=== PATIENT | male | born 1945 | race Caucasian/White ===

== ENCOUNTER 2016-08-27 09:26 | Inpatient (IN) | payer OTHER ==
--- NOTE | 2016-08-27 09:40 | CPEKG ---
Heart Rate: 87 RR Interval: 690 P-R Interval: 168 QRSD Interval: 98 QT Interval: 333 QTC Interval: 401 P [place]: 32 QRS [place]: 26 T Wave [place]: 92 EKG Severity - ABNORMAL ECG - EKG Impression: SINUS RHYTHM EKG Impression: NONSPECIFIC T ABNORMALITIES, ANT-LAT LEADS Electronically Signed By: Nish Spear 27-Aug-2016 09:43:16
--- NOTE | 2016-08-27 09:49 | EDPHY ---
General - History Smoking Status: Never smoked Narrative: CHIEF COMPLAINT: Chest Pain HISTORY OF PRESENT ILLNESS: Chest pain and shortness of breath over the past 3- 4 days. Patient says this started while at rest. It is sternal retrosternal chest pain. It has been constant since onset. Waxes and wanes. Varies from a 3/10 to 8 or 9/10. Difficult for him to describe true exacerbating factors. Sometimes it is stressed. Sometimes exertion. No radiating pain. No nausea, vomiting or diaphoresis. Shortness of breath is very mild for him. It is worse with exertion. He does not have any recent travel or surgery. No history of venous thrombolic event. No lower extremity erythema edema or pain. No exogenous testosterone use. He does have hypertension that is untreated by prescription medications, he only takes supplements. No other associated complaints or modifying factors. REVIEW OF SYSTEMS: Ten systems reviewed and are negative unless otherwise noted in the HPI EXAMINATION: General Appearance: Alert, no distress Head: normocephalic, atraumatic Eyes: Pupils equal and round, no conjunctival pallor or injection ENT, Mouth: Mucous membranes moist. Uvula midline. No erythema or edema Neck: Normal inspection, supple, non-tender Respiratory: Lungs are clear to auscultation. No wheezing, rhonchi or crackles. Cardiovascular: Regular rate and rhythm. No murmur. Pulses intact distally. Gastrointestinal: Abdomen is soft and nontender. No tympany rigidity Back: non-tender, no bony abnormalities Neurological: A&O, nonfocal, normal gait. Strength is symmetric in all limbs. Skin: Warm and dry, no rash Extremities: Nontender, no pedal edema Psychiatric: Mood and affect normal DIFFERENTIAL DIAGNOSES: Including but not limited to in no particular order: Acute Chest Pain, ACS, Stable Angina, Pneumonia, PE, duodenitis, gastritis, esophagitis, GERD MDM: 9:50 a.m. Chest pain or shortness of breath of the past 3 days. Vital signs are stable but he does have hypertension untreated. He also has diffusely flattened T- waves in the anterolateral leads. Patient is hemodynamically stable but plan for admission for cardiac workup. 10:25 a.m. Troponin negative. Chest x-ray clear with outflow sclerotic and tortuous aorta. Vital signs remained stable. He does have changes in EKG that warranted admission. I have paged the hospitalist for admission and the patient is amenable to being admitted. He is admitted in stable condition EKG: Interpreted by Dr. Spear SUPERVISION: This patient was independently evaluated without direct examination by the attending physician. Case was discussed with attending physician. (Wilber Guy) - Diagnostics EKG Interpretation: 12-lead EKG interpreted by me; official reading is in trace master. My interpretation is sinus rhythm, rate 87, new anterior T-wave flattening compared to previous EKG dated 09/06/2014. (Nish Spear) Discussion: PHYSICIAN DOCUMENTATION: The patient was evaluated and managed by the Physician Annealer Helper and myself. I have reviewed the chart and agree with the findings and plan of care as documented. In addition, I examined the patient myself at 1025. History confirmed as chest pain and shortness of breath for 3 or 4 days. Physical findings as follows: Regular rate and rhythm without murmur. EKG is reviewed by myself and show new anterior T-wave flattening since previous EKG dated 09/06/2014. Plan for admission for cardiac risk stratification with abnormal EKG. I am the secondary supervising physician. (Nish Spear) - Objective Vital Signs: Initial Vital Signs Temperature (C) 36.6 C 08/27/16 09:28 Heart Rate 98 08/27/16 09:28 Respiratory Rate 18 08/27/16 09:28 Blood Pressure 166/100 H 08/27/16 09:28 O2 Sat (%) 93 08/27/16 09:28 O2 Delivery Mode Room Air Allergies/Adverse Reactions: No Known Allergies Allergy (Verified 08/27/16 09:27) Home Medications: Medication Instructions Recorded NK [No Known Home Meds] 08/27/16 Laboratory Results: Laboratory Results 08/27/16 09:45 08/27/16 09:45 08/27/16 08/27/16 08/27/16 09:45 09:45 09:45 WBC 6.06 10^3/uL 10^3/uL (3.80-9.50) RBC 6.07 10^6/uL 10^6/uL (4.40-6.38) Hgb 17.4 g/dL g/dL (13.7-17.5) Hct 50.3 % % (40.0-51.0) MCV 82.9 fL fL (81.5-99.8) MCH 28.7 pg pg (27.9-34.1) MCHC 34.6 g/dL g/dL (32.4-36.7) RDW 13.6 % % (11.5-15.2) Plt Count 260 10^3/uL 10^3/uL (150-400) MPV 10.5 fL fL (8.7-11.7) Neut % (Auto) 68.8 % % (39.3-74.2) Lymph % (Auto) 20.6 % % (15.0-45.0) [place] % (Auto) 8.9 % % (4.5-13.0) Eos % (Auto) 0.8 % % (0.6-7.6) Baso % (Auto) 0.7 % % (0.3-1.7) Nucleat RBC Rel Count 0.0 % % (0.0-0.2) Absolute Neuts (auto) 4.17 10^3/uL 10^3/uL (1.70-6.50) Absolute Lymphs (auto) 1.25 10^3/uL 10^3/uL (1.00-3.00) Absolute Monos (auto) 0.54 10^3/uL 10^3/uL (0.30-0.80) Absolute Eos (auto) 0.05 10^3/uL 10^3/uL (0.03-0.40) Absolute Basos (auto) 0.04 10^3/uL 10^3/uL (0.02-0.10) Absolute Nucleated RBC 0.00 10^3/uL 10^3/uL (0-0.01) Immature Gran % 0.2 % % (0.0-1.1) Immature Gran # 0.01 10^3/uL 10^3/uL (0.00-0.10) PT 13.2 SEC SEC (12.0-15.0) INR 1.01 (0.83-1.16) APTT 27.4 SEC SEC (23.0-38.0) Sodium 141 mEq/L mEq/L (134-144) Potassium 3.5 mEq/L mEq/L (3.5-5.2) Chloride 104 mEq/L mEq/L (97-110) Carbon Dioxide 23 mEq/l mEq/l (22-31) Anion Gap 14 mEq/L mEq/L (8-16) BUN 14 mg/dL mg/dL (7-23) Creatinine 1.0 mg/dL mg/dL (0.7-1.3) Estimated GFR > 60 Glucose 146 mg/dL H mg/dL (70-100) Calcium 9.8 mg/dL mg/dL (8.5-10.4) Total Bilirubin 1.7 mg/dL H mg/dL (0.1-1.4) Conjugated Bilirubin 0.3 mg/dL mg/dL (0.0-0.5) Unconjugated Bilirubin 1.4 mg/dL H mg/dL (0.0-1.1) AST 29 IU/L IU/L (17-59) ALT 32 IU/L IU/L (21-72) Alkaline Phosphatase 53 IU/L IU/L (38-126) Troponin I < 0.012 ng/mL ng/mL (0-0.034) NT-Pro-B Natriuret Pep 97 pg/mL pg/mL (0-125) Total Protein 7.7 g/dL g/dL (6.3-8.2) Albumin 4.5 g/dL g/dL (3.5-5.0) Lipase 111.0 IU/L IU/L (23-300) Medications Given: Discontinued Medications Aspirin Buffered (Aspirin Ec) 325 mg PO EDNOW ONE Stop: 08/28/16 10:55 Last Admin: 08/27/16 10:55 Dose: 325 mg Departure - Departure Disposition: [facility] Inpatient Acute Clinical Impression: Acute chest pain, Abnormal EKG Condition: Good
[2016-08-27 09:50] LABS: % IMMATURE GRANULYOCYTES 0.2 % (0.0-1.1); ABSOLUTE IMMATURE GRANULOCYTES 0.01 10^3/uL (0.00-0.10); ADD DIFF? NO; ADD MORPH? NO; ADD SCAN? NO; ATYPICAL LYMPHOCYTE FLAG 0 (0-99); FRAGMENT RBC FLAG 0 (0-99); HEMATOCRIT 50.3 % (40.0-51.0); HEMOGLOBIN 17.4 g/dL (13.7-17.5); LEFT SHIFT FLG 0 (0-99); LIPEMIA HEMOLYSIS FLAG 90 (0-99); MEAN CELL HEMOGLOBIN 28.7 pg (27.9-34.1); MEAN CELL HEMOGLOBIN CONCENTR. 34.6 g/dL (32.4-36.7); MEAN CELL VOLUME 82.9 fL (81.5-99.8); MEAN PLATELET VOLUME 10.5 fL (8.7-11.7); PLATELET CLUMPS FLAG 0 (0-99); PLATELET COUNT 260 10^3/uL (150-400); RED BLOOD CELL COUNT 6.07 10^6/uL (4.40-6.38); RED CELL DISTRIBUTION WIDTH 13.6 % (11.5-15.2)
[2016-08-27 10:07] LABS: ALANINE AMINOTRANSFERASE 32 IU/L (21-72); ALBUMIN 4.5 g/dL (3.5-5.0); ALKALINE PHOSPHATASE 53 IU/L (38-126); ANION GAP 14 mEq/L (8-16); ASPARTATE AMINOTRANSFERASE 29 IU/L (17-59); BILIRUBIN,TOTAL 1.7 mg/dL (0.1-1.4); BILIRUBIN-CONJUGATED 0.3 mg/dL (0.0-0.5); BILIRUBIN-UNCONJUGATED 1.4 mg/dL (0.0-1.1); CALCIUM 9.8 mg/dL (8.5-10.4); CARBON DIOXIDE 23 mEq/l (22-31); CHLORIDE 104 mEq/L (97-110); GLOMERULAR FILTRATION RATE > 60; GLUCOSE 146 mg/dL (70-100); POTASSIUM 3.5 mEq/L (3.5-5.2); SODIUM 141 mEq/L (134-144); TOTAL PROTEIN 7.7 g/dL (6.3-8.2)
[2016-08-27 10:17] LABS: INR 1.01 (0.83-1.16); PROTIME(PATIENT) 13.2 SEC (12.0-15.0)
[2016-08-27 10:18] LABS: APTT 27.4 SEC (23.0-38.0); TROPONIN I < 0.012 ng/mL (0-0.034)
[2016-08-27] MEDS ORDERED: ASPIRIN 325 MG TAB ONE (10:56)
--- NOTE | 2016-08-27 14:51 | GHP ---
[f rep st] HISTORY AND PHYSICAL DATE OF ADMISSION: 08/27/2016 HISTORY OF PRESENT ILLNESS: The patient is a pleasant 70-year-old gentleman with a history of untre ated hypertension as well as hyperlipidemia, who presents with chest pain. It sounds like he has root d progressive anginal symptoms for the last couple of months. Over the weekend, he was visiting [place]. He walked up some stairs and he had some chest pressure, it did not radiate, except perhap s to his back. He was not diaphoretic, but he did have some shortness of breath. He also notes whe n riding his bike over the last few weeks, he has had that as well. He has had chest pressure and s hortness of breath. He notes his exercise tolerance has declined. He has not had heart failure sym ptoms such as PND, orthopnea or lower extremity edema. He does not have a known history of coronary artery disease. He does have hypertension. He had taken hydrochlorothiazide, but that was discontinued because of h yperlipidemia. He was started on another medication couple years ago, from what I am gathering was an ARB, although I do not know for certain, and he had intolerance to that. He is now taking supple ments. He was admitted here a couple years ago with a syncopal episode. At that time, carotid ultrasound s howed non-flow limiting atherosclerotic disease. He had an echocardiogram that was essentially norm al, other than diastolic dysfunction. He had a head MRA showing no evidence of obstruction of the c ircle of Art. At that time, his LDL was 162, he did not take a statin. REVIEW OF SYSTEMS: Complete 10-point review of systems conducted and negative, except as noted in t he HPI. PAST MEDICAL HISTORY: 1. Hyperlipidemia. 2. Hypertension. ALLERGIES: No known drug allergies, although he had intolerance to antihypertensive at some point i n the past. SOCIAL HISTORY: He is a nonsmoker. Rare alcohol. 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 Lives in [place] w ith his . FAMILY HISTORY: His mother at age 50 after giving to 17 children. PHYSICAL EXAM: VITAL SIGNS: Temp 36.7, blood pressure 128/89, pulse 70, breathing 17 times a minut e, 93% on room air. GENERAL: No acute distress. HEENT: Sclerae anicteric. Oropharynx clear. Mu cous membranes moist. NECK: Supple, without lymphadenopathy or JVD. LUNGS: Clear to auscultation bilaterally. HEART: S1, S2, without murmurs. ABDOMEN: Soft, nontender, nondistended. LOWER EXT REMITIES: Without edema. Calves are nontender. SKIN: Without rash. NEUROLOGIC: Grossly nonfoca l. LABORATORY DATA: Sodium 141, potassium 3.5, chloride 104, bicarb 22, BUN 14, creatinine 1.0, glucos e 146. LFTs showed elevated bilirubin at 1.7, but is predominantly unconjugated. Troponin is less than 0.012. Lipase is 111. Coags normal. No D-dimer. White count 6, hematocrit 50, platelets are 260,000. Chest x-ray, interpreted by me, shows no acute cardiopulmonary disease. EKG, interpreted by me, shows sinus at 87 with normal axis and intervals. There is possible LVH on the basis of his precordial leads. He has some nonspecific T-wave flattening, but no ST or T-wave c hanges when compared with prior from 2 years ago, it is essentially the same. I did discuss the case with Richy White of cardiology. ASSESSMENT AND PLAN: A 70-year-old gentleman with chest pain which represents a good story for poss ible angina. 1. Chest pain: Patient has risk factors of hypertension and hyperlipidemia, as well as age. We kn ow he has some degree of vascular disease on the basis of a carotid ultrasound in the past. I will cycle his troponins, place him on telemetry, give him an aspirin and perform an exercise treadmill w [facility] tomorrow. Cardiology will see him, as he will likely benefit from card iology followup. 2. Hypertension: The patient is hypertensive and would benefit from a hypertensive agent. I will start an LOVE inhibitor in the morning. 3. Hyperlipidemia: Patient warrants a statin. He says he has intercurrent lipid panel that has be en normal, so I will await lipid panel in the morning prior to starting a statin. 4. Elevated bilirubin: It has been normal in the past, not sure what to make of this. He has no r ight upper quadrant symptoms. We will follow. 5. Hyperglycemia: This is a nonfasting sample, not diagnostic of diabetes. Two years ago he had a hemoglobin A1c of 5.8. 6. Disposition: Observation status. /[id number]/MODL
[2016-08-27] MEDS ORDERED: ACETAMINOPHEN 325 MG TAB PO PRN (17:05)
[2016-08-27] MEDS ORDERED: NITROGLYCERIN 0.4 MG BTL SL PRN (17:05)
[2016-08-27] MEDS ORDERED: TEMAZEPAM 15 MG CAP PO PRN (17:05)
--- NOTE | 2016-08-27 21:10 | GCON ---
[f rep st] CONSULTATION CARDIOLOGY CONSULTATION REASON FOR CONSULTATION: Chest pressure, shortness of breath, abnormal electrocardiogram. HISTORY OF PRESENT ILLNESS: The patient is a 70-year-old male with known history of hypertension, hyperlipidemia, and non-flow limiting carotid artery disease. He reports over the last 8 months of midsternal chest pressure with exertion, worsening over the last 2-3 months, with worst episode happening Saturday afternoon, reporting when he was in [place] climbing steps and developing significant midsternal chest pressure with radiation into the back with associated symptoms of shortness of breath. Denies any nausea or diaphoresis. Reporting symptoms somewhat subsided as he returned back home, but noted that he was extremely hypertensive with systolic blood pressure of 170 and diastolic of 100 when initially taken after chest pain episode. He reported he monitored his blood pressure throughout the evening on Saturday night into Saturday, with mild improvement in symptoms, but still having stuttering episodes of chest pressure with much exertion. With continuation of symptoms today, he decided to come to the emergency department for further evaluation. He denies any palpitations, orthopnea, PND, edema, near-syncope, or syncopal events. Denies any symptoms suggestive of TIA or CVA. Reports that besides worsening exertional chest pressure, he had been in his normal state of health, denying any fevers, chills, night sweats. Denies any history of GI bleeding or bleeding issues. He does have a remote history of being admitted for syncope in 2014, for which he did undergo echocardiogram which showed LV normal size with EF estimated at 72%, diastolic dysfunction, no regional wall motion abnormalities. No other significant structural heart disease. Also at the same time he had a carotid ultrasound that showed mild non -flow-limiting carotid bulb plaquing. No arrhythmias were identified during his hospitalization for syncope. It was felt that this was mostly due to dehydration, low sodium levels and not taking significant enough oral intake. He has had no further events of syncope since hospitalization. He does admit that he does not like to follow up with doctors. He had been on hydrochlorothiazide but discontinued due to hyponatremia, and had been started on lisinopril, but felt that he was having side effect ad self discontinued. He reports he has not seen his primary care in greater than a year. He has significant cardiac risk factors that include age, sex, hypertension, hyperlipidemia, peripheral vascular disease. PAST MEDICAL HISTORY: 1. Hyperlipidemia. 2. Hypertension. 3. Squ-ilir-dbfiepex carotid artery disease, mild plaque. 4. Syncopal event due to dehydration and hyponatremia. FAMILY HISTORY: Patient reports mother at age 50 after giving to 17 children, uncertain of any significant illness, father of a stroke at age 80. Denies any significant family history of coronary artery disease. 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 He is . He reports he has 4 children. He is retired. Denies any history of tobacco abuse. Reports 1-2 alcoholic beverages a week. Denies any illicit drug use. ALLERGIES: Patient has no known drug allergies. MEDICATIONS: At home: Patient reports taking supplements, vitamin supplements , but denies any medications at home. REVIEW OF SYSTEMS: A 10-point review of systems done on this patient all negative, except as mentioned above. PHYSICAL EXAMINATION: GENERAL APPEARANCE: Tall, well-groomed, male, alert, oriented to person, place, time, and situation. Appears to be under no acute distress. VITAL SIGNS: Current blood pressure is 128/89, heart rate 70, sinus rhythm on the monitor, respirations are 17, saturating 93% on room air. Temperature 36.7 degrees Celsius. HEENT: Head is normocephalic. Lips and tongue are pink and moist with no signs of cyanosis. Conjunctivae pink. NECK: Trachea is midline, +2 carotid pulses bilateral. No auscultated bruits, no jugular vein distention. RESPIRATORY: Lungs clear to auscultation, no rhonchi , rales or wheezes. No accessory muscle use, no intercostal muscle retraction noted. CARDIAC: S1, S2. A 1-2/6 systolic murmur noted along the left sternal border. No S3, rubs, or gallops are noted. ABDOMEN: Soft, nontender, bowel sounds x4 quadrants. No organomegaly, no palpable masses. SKIN: [place], warm, dry. No cyanosis, no clubbing, no peripheral edema. VASCULAR: +2 carotids bilateral, +2 radials bilateral, +2 posterior tibial pulses bilateral. NEURO: Cranial nerves 2-12 grossly intact. LABORATORY STUDIES: On admission, WBC 6.06, hemoglobin 17.4, hematocrit 50.3, platelet count 260. INR 1.01. Sodium 141, potassium 3.5, chloride 104, CO2 of 23, BUN 14, creatinine 1.0, glucose 146, calcium 9.8, total bilirubin 1.7, AST 29, ALT 32, alkaline phosphate 53. Troponin less than 0.012. ProBNP 97. Total protein 7.7, albumin 4.5, lipase of 111. Chest x-ray shows arthrosclerotic torturous aorta, no acute pulmonary disease. An electrocardiogram shows sinus rhythm, with flattened T-waves in inferior leads, inverted T-waves in lateral leads. In comparison to previous electrocardiogram dated September 06, 2014, inverted T-waves in lateral leads are new. ASSESSMENT AND PLAN: 1. Episodes of exertional chest pressure with shortness of breath. Patient reporting ongoing year long history of chest pressure, worsening in the last few months, with exertion, worse episode last Saturday when he was up at altitude, with ongoing fatigue symptoms. Noted abnormal electrocardiogram, initial troponin negative. He has significant cardiac risk factors that include age, sex, hypertension, hyperlipidemia, and peripheral vascular disease , with mild carotid artery plaque noted on ultrasound. Noted to have normal LV systolic function off previous echocardiogram 2 years ago, has had very poor followup for medical treatment. Discussed with Dr. Ruby, concerns that worsening symptoms and electrocardiogram changes in the last 2 years are potentially cardiac ischemia. [place] that the best evaluation for this patient with his multiple risk factors is for him to undergo cardiac catheterization. We will schedule to have the procedure done tomorrow. Risks and benefits of procedure explained to the patient, and elected both verbalized understanding and wanting to proceed. Until then, I have ordered for him to undergo echocardiogram to evaluate his LV systolic function, especially with history of significant hypertension. He will continue on current dosage of aspirin therapy , and we will cycle his troponins. If troponins do elevate, would consider placing him on beta-mallory at that time and making cardiac catheterization were urgent. 2. Hypertension: The patient's blood pressure elevated on initial admission, Dr. Mackey of hospitalist services has started him on lisinopril. We will continue to monitor and make adjustments as needed. 3. Hyperlipidemia: Patient with known carotid artery disease, with mild plaquing. Reports he has had borderline lipid panels for the last few checkups. We will have him get a fasting lipid panel in the morning. Would recommend that with his carotid artery disease that he have an LDL less than 70 , and consideration of starting him on statin therapy. The patient will remain on telemetry floor throughout the evening. If his symptoms do change or if he does develop worsening chest pressure or has significant EKG or elevated troponin levels throughout the evening, catheterization can be done more urgently. He was be made n.p.o. after midnight. More recommendations will come post catheterization. Thank you for this consultation. We will be glad to follow along with you. /[id number]/MODL MTDD
[2016-08-28] MEDS ORDERED: NS 1,000 ML IV ONE (06:00)
[2016-08-28] MEDS ORDERED: ASPIRIN EC 325 MG TAB PO ONE ×2 (06:00→10:54)
[2016-08-28] MEDS ORDERED: DIAZEPAM 5 MG TAB PO ONE ×2 (06:00→12:00)
[2016-08-28] MEDS ORDERED: diphenhydrAMINE 25 MG CAP PO ONE ×3 (06:00→12:00)
[2016-08-28 06:22] LABS: APTT 28.1 SEC (23.0-38.0); INR 1.08 (0.83-1.16); PROTIME(PATIENT) 13.9 SEC (12.0-15.0)
[2016-08-28 06:24] LABS: ANION GAP 10 mEq/L (8-16); CALCIUM 9.7 mg/dL (8.5-10.4); CARBON DIOXIDE 24 mEq/l (22-31); CHLORIDE 108 mEq/L (97-110); CHOLESTEROL 270 mg/dL (140-220); CHOLESTEROL/HDL RATIO 6.59 RATIO (1.00-4.97); GLOMERULAR FILTRATION RATE > 60; GLUCOSE 88 mg/dL (70-100); HIGH DENSITY LIPOPROTEIN 41 mg/dL (40-65); LDL/HDL RATIO 4.63 RATIO (1.00-3.64); LOW DENSITY LIPOPROTEIN 190 mg/dL (80-100); MAGNESIUM 2.1 mg/dL (1.6-2.3); NON-HIGH DENSITY LIPOPROTEIN 229 mg/dL (90-129); POTASSIUM 4.4 mEq/L (3.5-5.2); SODIUM 142 mEq/L (134-144); TRIGLYCERIDE 199 mg/dL (40-150); VERY LOW DENSITY LIPOPROTEINS 39 mg/dL (8-25)
[2016-08-28] MEDS: LISINOPRIL 2.5 MG TAB PO SCH (11:01)
[2016-08-28] MEDS: ASPIRIN 325 MG TAB PO SCH (11:01)
[2016-08-28] MEDS: MULTIVITAMINS 1 EACH TAB PO SCH (11:02)
--- NOTE | 2016-08-28 11:09 | ECHO ---
[id number] + + [address] : : [place] [address] : : [phone] + + Adult Echocardiographic Report + ---+ :Name: KANDICE MORENOMaci Date: 08/28/2016 07:44 AM : : Hospital Admission Number: [id number] Location: 142: :: 1945 Gender: Male Height: 69 in : :Age: 70 yrs Race: WH Weight: 175 lb : :Reason For Study: Chest pain/CAD/SOB : : BSA: 2.0 meters2 : + ---+ MMode/2D Measurements \T\ Calculations IVSd: 0.79 cm LVIDd: 4.9 cm FS: 38.9 % Ao root diam: LVPWd: 0.94 cm LVIDs: 3.0 cm EDV(Teich): 3.6 cm 115.0 ml LA dimension: ESV(Teich): 3.7 cm 35.6 ml EF(Teich): 69.1 % LVLd ap4: 7.2 cm SV(MOD-sp4): EDV(MOD-sp4): 34.0 ml 54.0 ml LVLs ap4: 5.9 cm ESV(MOD-sp4): 20.0 ml EF(MOD-sp4): 63.0 % Normal Measurement Values: + + :LVIDd (3.5-5.7cm) IVSd (0.6-1.1cm) LVPWd (0.6-1.1cm) Aortic Root (2.0-3.7cm)Left Atrium (1.5-4.0cm): :LV Vol(d) (76-115ml) LV Vol(s) (29-48ml) Ejec Fraction (50-65%)PV Haseeb (0.6- 1.2m/s) TV Haseeb (0.4-1.0m/s) : :MV E Haseeb (0.8-1.0m/s)MV A Haseeb (0.3-1.0m/s)LVOT Haseeb (0.7-1.2m/s) Asc Ao Haseeb ( 0.9-1.8m/s) : + + Doppler Measurements \T\ Calculations MV E max haseeb: 43.9 cm/sec Ao V2 max: 110.0 cm/sec MV A max haseeb: 55.8 cm/sec Ao max P.8 mmHg MV E/A: 0.79 Left Ventricle The left ventricle is normal in size. There is normal left ventricular wall thickness. Left ventricular systolic function is normal. Ejection Fraction = 65-70%. No regional wall motion abnormalities noted. Right Ventricle The right ventricle is normal in size and function. Atria The left atrial size is normal. Right atrial size is normal. The interatrial septum is intact with no evidence for an atrial septal defect. Mitral Valve The mitral valve is normal in structure and function. There is no evidence of mitral valve prolapse. There is no mitral valve stenosis. Tricuspid Valve Normal tricuspid valve. There is trace tricuspid regurgitation. Aortic Valve The aortic valve is trileaflet. The aortic valve opens well. There is no aortic stenosis. There is no aortic insufficiency. Pulmonic Valve The pulmonic valve is normal in structure and function. Trace pulmonic valvular regurgitation. Great Vessels The aortic root is normal size. Pericardium/Pleural There is no pericardial effusion. Conclusion A complete two-dimensional transthoracic echocardiogram was performed (2D, M-mode, Doppler and color flow Doppler). Left ventricular systolic function is normal. Ejection Fraction = 65-70%. No regional wall motion abnormalities noted. There is trace tricuspid regurgitation. Trace pulmonic valvular regurgitation. Final Reading Physician: Fani Bailey signed on 08/28/2016 11:08 AM Ordering Physician: Richy White Performed By: Josette Soto RDCS
[2016-08-28] MEDS ORDERED: FAMOTIDINE 20 MG TAB ONE (11:30)
[2016-08-28] MEDS ORDERED: DIAZEPAM 5 MG TAB ONE (11:30)
[2016-08-28] MEDS ORDERED: LIDOCAINE 1% 30 ML SDV ONE (11:42)
[2016-08-28] MEDS ORDERED: HEPARIN 10,000 UNIT/10 ML MDV ONE (11:42)
[2016-08-28] MEDS ORDERED: fentaNYL 100 MCG/2 ML INJ ONE (11:42)
[2016-08-28] MEDS ORDERED: MIDAZOLAM 2 MG/2 ML VIAL ONE (11:42)
[2016-08-28] MEDS ORDERED: VERAPAMIL 5 MG/2 ML VIAL ONE (11:43)
[2016-08-28] MEDS ORDERED: IOPAMIDOL (ISOVUE 370) 100 ML BTL IV ONE ×2 (11:43→12:22)
[2016-08-28] MEDS ORDERED: FAMOTIDINE 20 MG TAB PO ONE (12:00)
[2016-08-28] MEDS ORDERED: ADENOSINE 90 MG/30 ML VIAL IV ONE (12:24)
[2016-08-28] MEDS ORDERED: NITROGLYCERIN 1,500 MCG/15 ML VIAL MISC ONE (12:57)
[2016-08-28] MEDS ORDERED: CLOPIDOGREL BISULFATE 75 MG TAB PO ONE (13:03)
[2016-08-28] MEDS ORDERED: ONDANSETRON 4 MG/2 ML VIAL IVP PRN (13:03)
[2016-08-28] MEDS ORDERED: ATROPINE SULFATE 1 MG/10 ML SYR IVP PRN (13:03)
[2016-08-28] MEDS ORDERED: CLOPIDOGREL BISULFATE 75 MG TAB ONE (13:04)
--- NOTE | 2016-08-28 13:14 | PDDXCAT ---
Diagnostic Cath Note - . Date: 08/28/16 Adult Literacy Teacher: Tung Indication: CCC Class III and IV angina on medical treatment - Procedure Access: right wrist Procedure: left heart catheterization, coronary angiography - Materials Left Heart Cath size: 5F Left Heart Cath materials: pigtail, other (SiteSeer 4) - Findings-Left Heart Catheterization LM: unobstructed. LAD: D2 85% stenosis. Otherwise unobstructed LCX: 60% OM2 large vessel RCA: Dominant. Luminal irregularities. EDP: 15 mmHg LVEF: 60% Wall motion: Normal Complications: none Estimated blood loss: <50ml Closure method: TR Band Assessment: 1. Indeterminate large Om stenosis. 2. 85% medium size D2 stenosis. 3. Normal LV function Plan: 1. FFR OM 2. PCI of D2 Intervention: 1. FFR OM 2. PCI of the D2 with 2.0 mm balloon predilitation 3. 2.25 by 12 mm Synergy 4. IC nitroglycerine After reviewing diagnostic angiograms and reviewing them with primary cardiology team, it was elected to proceed with FFR of the OM stenosis. Therapeutic ACT was confirmed. LM was intubated with extra backup left radial guide. Flow wire was calibrated. We crossed OM stenosis. Patient was administered IV adenosine. FFR was 0.91. A 0.014 Luge wire was then used to cross the D2. It was pre-dilated with a 2.0 balloon. A 2.25 by 12 mm Synergy was placed across D2. It was deployed with single inflation. IC nitroglycerin was given . Final orthogonal angiograms were performed. Conclusion: Non flow limiting stenosis of t he OM. Succesful PCI of D2. DAPT for one year Aggressive secondary prevention. Patient Problems: Problems Problem Status Onset Transient global amnesia Acute Acute chest pain Acute Abnormal EKG Acute
--- NOTE | 2016-08-28 16:15 | HOSPPROG ---
Hospitalist Progress Note Assessment/Plan: 70 yo M w cad, d2 stent angina: indicative of cad cad: s/p stent asa/plavix needs statin hyperlipidemiaL LDL 190 start statin proph: start LMWH if staying past 08/29 dispo: inpt Subjective: case d/w dr montano. no events telemetry (interp by me) Objective: Vital Signs Temp Pulse Resp BP Pulse Ox 36.3 C 81 16 146/90 H 93 08/28/16 11:03 08/28/16 11:03 08/28/16 11:03 08/28/16 11:03 08/28/16 11:03 PT 13.9 SEC (12.0-15.0) 08/28/16 05:45 INR 1.08 (0.83-1.16) 08/28/16 05:45 - Physical Exam Constitutional: no apparent distress, not in pain Eyes: PERRL, anicteric sclera Ears, Nose, Mouth, Throat: moist mucous membranes, hearing normal Cardiovascular: regular rate and rhythym, no murmur, rub, or gallop, No systolic murmur Respiratory: no respiratory distress, no rales or rhonchi Gastrointestinal: normoactive bowel sounds, soft, non-tender abdomen Genitourinary: no bladder fullness, No velazquez in urethra Skin: warm, normal color Musculoskeletal: full muscle strength, other (L hand NV intact) Neurologic: AAOx3 ICD10 Worksheet Patient Problems: Problems Problem Status Onset Abnormal EKG Acute Acute chest pain Acute Transient global amnesia Acute
[2016-08-28] MEDS: ROSUVASTATIN CALCIUM 20 MG TAB PO SCH (17:33)
[2016-08-28] MEDS ORDERED: ATORVASTATIN CALCIUM 40 MG TAB PO SCH (21:00)
[2016-08-29 05:23] LABS: % IMMATURE GRANULYOCYTES 0.3 % (0.0-1.1); ABSOLUTE IMMATURE GRANULOCYTES 0.02 10^3/uL (0.00-0.10); ADD DIFF? NO; ADD MORPH? NO; ADD SCAN? NO; ATYPICAL LYMPHOCYTE FLAG 0 (0-99); FRAGMENT RBC FLAG 0 (0-99); HEMATOCRIT 46.1 % (40.0-51.0); HEMOGLOBIN 15.5 g/dL (13.7-17.5); LEFT SHIFT FLG 0 (0-99); LIPEMIA HEMOLYSIS FLAG 80 (0-99); MEAN CELL HEMOGLOBIN 28.7 pg (27.9-34.1); MEAN CELL HEMOGLOBIN CONCENTR. 33.6 g/dL (32.4-36.7); MEAN CELL VOLUME 85.2 fL (81.5-99.8); MEAN PLATELET VOLUME 10.9 fL (8.7-11.7); PLATELET CLUMPS FLAG 0 (0-99); PLATELET COUNT 232 10^3/uL (150-400); RED BLOOD CELL COUNT 5.41 10^6/uL (4.40-6.38); RED CELL DISTRIBUTION WIDTH 13.7 % (11.5-15.2)
[2016-08-29 05:31] LABS: ALBUMIN 3.6 g/dL (3.5-5.0); ANION GAP 10 mEq/L (8-16); ASPARTATE AMINOTRANSFERASE 28 IU/L (17-59); BILIRUBIN,TOTAL 1.5 mg/dL (0.1-1.4); CALCIUM 9.4 mg/dL (8.5-10.4); CARBON DIOXIDE 23 mEq/l (22-31); CHLORIDE 104 mEq/L (97-110); CREATININE 1.1 mg/dL (0.7-1.3); GLOMERULAR FILTRATION RATE > 60; GLUCOSE 75 mg/dL (70-100); LACTATE DEHYDROGENASE 419 IU/L (313-618); POTASSIUM 4.5 mEq/L (3.5-5.2); SODIUM 137 mEq/L (134-144)
[2016-08-29] MEDS: ASPIRIN 325 MG TAB PO SCH (07:43)
[2016-08-29] MEDS: ROSUVASTATIN CALCIUM 20 MG TAB PO SCH (07:44)
[2016-08-29] MEDS: LISINOPRIL 2.5 MG TAB PO SCH (07:44)
[2016-08-29] MEDS: MULTIVITAMINS 1 EACH TAB PO SCH (07:44)
--- NOTE | 2016-08-29 08:48 | HOSPPROG ---
Hospitalist Progress Note Assessment/Plan: #CAD: CHELSIE to D2. Plavix, ASA, statin #Chest pain: resolved #HLD: statin #Bradycardia: no BB Disp: DC today # Subjective: no CP or dizziness Objective: Vital Signs Temp Pulse Resp BP Pulse Ox 36.7 C 54 L 12 96/58 L 99 08/29/16 04:50 08/29/16 04:50 08/29/16 04:50 08/29/16 04:50 08/29/16 04:50 Laboratory Results 08/29/16 03:32 08/29/16 03:32 08/28/16 08/29/16 08/30/16 05:59 05:59 05:59 Intake Total 350 Balance 350 PT 13.9 SEC (12.0-15.0) 08/28/16 05:45 INR 1.08 (0.83-1.16) 08/28/16 05:45 - Physical Exam Constitutional: no apparent distress Eyes: PERRL Ears, Nose, Mouth, Throat: moist mucous membranes Cardiovascular: bradycardia Respiratory: no respiratory distress Gastrointestinal: normoactive bowel sounds, soft, non-tender abdomen Skin: warm Musculoskeletal: other (right radial access site without hematoma, +2 pulse) Neurologic: AAOx3 Psychiatric: interacting appropriately ICD10 Worksheet Patient Problems: Problems Problem Status Onset Abnormal EKG Acute Acute chest pain Acute Transient global amnesia Acute
[2016-08-29] MEDS ORDERED: CLOPIDOGREL BISULFATE 75 MG TAB PO SCH (09:00)
[2016-08-29 09:05] VITALS: BP 103/59; PULSE 62; RESP 18; TEMP 98.3; O2SAT 93
--- NOTE | 2016-08-29 09:13 | CPEKG ---
Heart Rate: 66 RR Interval: 909 P-R Interval: 196 QRSD Interval: 88 QT Interval: 348 QTC Interval: 365 P [place]: 39 QRS [place]: 40 T Wave [place]: 134 EKG Severity - ABNORMAL ECG - EKG Impression: SINUS RHYTHM EKG Impression: NONSPECIFIC T ABNORMALITIES, DIFFUSE LEADS EKG Impression: No significant change from August 27, 2016 Electronically Signed By: Cornel Roy 29-Aug-2016 12:28:03
--- NOTE | 2016-08-29 09:27 | PDCARPN ---
Cardiology Progress Note Chief Complaint: Patient reported post PCI of some mild chest pressure, which has mostly resolved at this time. Assessment/Plan: Assessment: 80-year-old male exertional chest pain, noted to have abnormal electrocardiogram , normal troponin levels. Significant past history that includes hypertension, hyperlipidemia, and peripheral vascular disease with noted mild arthrodesis plaque off previous carotid ultrasound. Echocardiogram done on 08/27/2016 showed normal LV systolic function, EF 65-70% regional wall motion abnormalities , trace TR trace TR. Due to his multiple cardiac risk factors, chest pressure symptoms and abnormal electrocardiogram he underwent coronary catheterization yesterday, noted to have 85% stenosis and diagonal 2 60% stenosis in OM 2 and luminal irregularities RCA. EDP was estimated at 15 mm Hg, LVEF was 60%. FFR was done on OM, which showed no flow limiting gradient. PCI of Jenny 2 lesion was done with a 2.25 x 12 synergy CHELSIE. Patient today reports no chest pressure , denies of any shortness of breath, orthopnea, PND, near-syncope or syncopal events. Continues cardiac monitoring shows sinus rhythm/sinus bradycardia, with heart rates down into the 50s last p.m.. Catheter insertion site, right wrist with no redness, swelling, drainage, ecchymosis or hematoma. CMS checks within normal limits. Electrocardiogram done today showed shows sinus rhythm with nonspecific T-wave abnormalities in lateral leads. No longer showing inverted T-waves in V5 and V6 as admission. Laboratory studies showed no anemia , normal electrolyte and renal functions today. Continuous cardiac monitoring overnight showed sinus bradycardia, but no significant pauses or malignant arrhythmias. Plan: 1. CAD: Patient denies of any further chest pressure since cardiac catheterization. PCI of diagonal 2 with CHELSIE implantation. Dual anti-platelet therapy of aspirin and 325 mg and clopidogrel at 75 mg p.o. q.day. Due to patient's bradycardia, will hold off on beta-blockers at this time, re-evaluate in outpatient setting. Referral to cardiac rehab. Sublingual nitroglycerin will be ordered for him to use at home. 2. Hyperlipidemia: Total cholesterol noted to be 270, LDL at 190. Started on on atorvastatin at 40 mg at bedtime, will plan on patient to have fasting lipid and liver panel in 8 weeks time. 3. Hypertension: Blood pressure appears to be well controlled were starting on lisinopril. Have asked patient to start monitoring blood pressure on a daily basis, keeping a log, and bring it with him on his next office follow-up. Patient will need a basic metabolic panel done in 7-10 days. Patient planned to be discharged later today. I have done post CHELSIE implantation discharge instructions with patient and his , they both verbalize understanding. Have stressed the importance of anti-platelet therapy and medication compliance. He has a follow-up appointment set for next Saturday at [facility] office with myself. Patient has been told that if any problems or concerns, post discharge, they are to call our office or return to the hospital. 08/29/16 09:24 Subjective: Patient denies of any chest pain, shortness of breath, orthopnea, PND, palpitations, lightheadedness, near-syncope or syncopal events. Denies of any adverse reactions to new medications started and hospitalization. Reviewed/Discussed With: hospitalist (Dr Rincon), other (Dr Ruby) Objective: Vital Signs (8 Hrs) Temp Pulse Resp BP Pulse Ox 08/29/16 09:02 36.8 C 62 18 103/59 L 93 08/29/16 04:50 36.7 C 54 L 12 96/58 L 99 Intake/Output (24 Hrs) 08/28/16 08/29/16 08/30/16 05:59 05:59 05:59 Intake Total 350 Balance 350 Intake: Oral (ml) 350 Other: Weight 79.379 kg Intake Quantity Yes Sufficient Number of Voids Toilet 3 Result Diagrams: 08/29/16 03:32 08/29/16 03:32 - Physical Exam Constitutional: WDWN, healthy appearing, no apparent distress Ears, Nose, Mouth, Throat: moist mucous membranes Cardiovascular: regular rate and rhythm, no murmurs, no rubs, pulses symmetric bilat, No jugular vein distention, No carotid bruit Peripheral Pulses: 1+: dorsalis-pedis (R), dorsalis-pedis (L), 2+: carotid (R), carotid (L) Respiratory: clear to auscultate bilat, no wheezes Gastrointestinal: normoactive bowel sounds, no tenderness, no masses Skin: warm, no edema, other (Right wrist, catheter insertion site, without redness, swelling, drainage, ecchymosis, or hematoma. CMS checks within normal limits to hands, cap refill less than 3 seconds.) Neurologic: AAOx3, CN II-XII grossly intact Psychiatric: cooperative, interactive, following commands ICD10 Worksheet Patient Problems: Problems Problem Status Onset Transient global amnesia Acute Acute chest pain Acute Abnormal EKG Acute
--- NOTE | 2016-08-29 13:16 | GDS ---
[f rep st] DISCHARGE SUMMARY DISCHARGE DIAGNOSES: 1. Coronary artery disease. 2. Chest pain. 3. Hyperlipidemia. 4. Bradycardia. 5. Benign hypertension. PROCEDURES: Cardiac catheterization 08/29/2016: 1. Left anterior descending D2 85% stenosis, 60% OM2, large vessel. 2. Status post percutaneous coronary intervention of D2. HISTORY OF PRESENT ILLNESS: The patient is a 70-year-old male with history of untreated hypertension and hyperlipidemia, who presented with chest pain which has progressed over the last several months. He was visiting [place] over the weekend and developed chest pain walking up stairs. It radiated to his back , along with shortness of breath. He also noted when riding his bike over the last few weeks, he has had intermittent chest pain as well. His exercise tolerance has declined. Denies PND or orthopnea. No lower extremity edema. HOSPITAL COURSE: 1. CAD: Given concerning symptoms for angina, the patient underwent cardiac catheterization that showed a 5% stenosis of DT status post drug-eluting stent. Continue full dose of aspirin and Plavix, lisinopril. A statin was initiated. Hold off on beta malolry with bradycardia. 2. Hyperlipidemia: Start statin. 3. Benign hypertension: Start on low-dose lisinopril 2.5 mg. Patient currently denies any dizziness or lightheadedness. DISPOSITION: Patient is stable for discharge. FOLLOWUP: Cardiology. NEW MEDICATIONS: 1. Plavix. 2. Aspirin 325 daily. 3. Lisinopril 2.5 daily. 4. P.r.n. nitroglycerin. 5. Atorvastatin 40 mg. /[id number]/MODL MTDD
== END 2016-08-29 12:49 | disposition home or self-care (01) | DRG 247 ==
LOC: F1N 11:02 → OBSVTOIN 08-28 13:05 → F2W 08-28 13:36
PROVIDERS: ADMIT Internal Medicine; ATTEND Internal Medicine
DX: I25.119 Atherosclerotic heart disease of native coronary artery with unspecified angina pectoris (principal); I10 Essential (primary) hypertension; E78.5 Hyperlipidemia, unspecified; R00.1 Bradycardia, unspecified
CPT/HCPCS: C1725; C1769; C1874; C1887; C9600; G0378; J0153; J1644; J2250; J3010; Q9967

== ENCOUNTER 2017-02-21 08:34 | Inpatient (IN) | payer OTHER ==
--- NOTE | 2017-02-21 08:49 | CPEKG ---
Heart Rate: 75 RR Interval: 800 P-R Interval: 172 QRSD Interval: 92 QT Interval: 360 QTC Interval: 402 P [place]: 30 QRS [place]: 12 T Wave [place]: 73 EKG Severity - NORMAL ECG - EKG Impression: SINUS RHYTHM Electronically Signed By: Kavon De La Torre 21-Feb-2017 13:55:15
--- NOTE | 2017-02-21 08:54 | EDPHY ---
H & P Stated Complaint: "Weak" x 3 wks,stopped cholesterol med;c/o chest tightness this am Time Seen by Provider: 02/21/17 08:43 HPI/ROS: CHIEF COMPLAINT: Chest pressure HISTORY OF PRESENT ILLNESS: The patient presents to the ED with complaints of chest pressure at which began at 7 o'clock this morning. The patient reports the pain is across the anterior chest. It is associated with mild dyspnea and some slight nausea. The patient reports a similar episode yesterday which was self-limited. He did have a brief episode of right upper quadrant pain. The patient does have a history of coronary artery disease. He is status post stenting in August of 2016 and does relate similar symptoms at that point time. The patient currently rates his pain as a 5/10. The patient reports the maximum intensity of his pain was 6/10 this morning. The patient denies asymmetric calf pain or swelling. The patient's reports that over the past several weeks he has had intermittent bouts of a generalized weakness. There has been no focal numbness or weakness. REVIEW OF SYSTEMS: A comprehensive 10 point review of systems is otherwise negative aside from elements mentioned in the history of present illness. Source: Patient Exam Limitations: No limitations - Personal History Current Tetanus Diphtheria and Acellular Pertussis (TDAP): Yes Tetanus Vaccine Date: WITHIN 5 YRS - Medical/Surgical History Hx Asthma: No Hx Chronic Respiratory Disease: No Hx Diabetes: No Hx Cardiac Disease: Yes Hx Renal Disease: No Hx Cirrhosis: No Hx Alcoholism: No Hx HIV/AIDS: No Hx Splenectomy or Spleen Trauma: No Other PMH: HTN, hyperlipidemia, transient amnesia,hyponatremia, gastric ulcer, cardiac stent in August 2016 - Social History Smoking Status: Never smoked - Physical Exam Exam: General Appearance: Alert, no distress Eyes: Pupils equal and round no pallor or injection ENT, Mouth: Mucous membranes moist Respiratory: There are no retractions, lungs are clear to auscultation Cardiovascular: Regular rate and rhythm Gastrointestinal: Abdomen is soft and nontender, no masses, bowel sounds normal Neurological: A&O, normal motor function, normal sensory exam, normal cranial nerves Skin: Warm and dry, no rashes Musculoskeletal: Neck is supple nontender Extremities: symmetrical, full range of motion Constitutional: Initial Vital Signs Temperature (C) 36.9 C 02/21/17 08:35 Heart Rate 80 02/21/17 08:35 Respiratory Rate 18 02/21/17 08:35 Blood Pressure 153/90 H 02/21/17 08:35 O2 Sat (%) 96 02/21/17 08:35 O2 Delivery Mode Room Air Allergies/Adverse Reactions: No Known Allergies Allergy (Verified 02/21/17 08:35) Home Medications: Medication Instructions Recorded Clopidogrel Bisulfate [Plavix (*)] 75 mg PO DAILY #30 tab 08/29/16 Nitroglycerin [Nitrostat 0.4 mg 0.4 mg SL PRN PRN #30 btl 08/29/16 (*)] Aspirin [Aspirin 81mg (*)] 81 mg PO DAILY 02/21/17 Herbals/Supplements -Info Only 1 ea PO DAILY 02/21/17 Lisinopril [Zestril 10 mg (*)] 10 mg PO DAILY 02/21/17 Multivitamins [Multivitamin (*)] 1 each PO Q3D 02/21/17 Medical Decision Making - Diagnostics EKG Interpretation: EKG: Complete interpretation has been separately recorded in the [employer] archive. Summary impression: Sinus rhythm, no ischemic changes noted Imaging Results: Imaging Impressions Chest X-Ray 02/21/17 08:51 Impression: Chest negative for acute abnormality. Abdomen Ultrasound 02/21/17 10:13 Impression: 1. No evidence for cholelithiasis or cholecystitis. 2. Evidence of atherosclerotic change of abdominal aorta without evidence for aneurysmal dilatation. Results called and discussed with Kavon De La Torre on February 21, 2017 at 10: 56 a.m. ED Course/Re-evaluation: The patient presents to the ED after an episode of resolved chest pain with associated nausea and presyncope. The patient has a history of coronary artery disease. He was stented in August of 2016. At that point time he was noted to have a 50-60% lesion which was not treated according to his in the cath report that I reviewed. In the emergency department today the patient's EKG demonstrates no evidence of ischemia. The patient had troponins x2 which were negative. The patient was evaluated with a right upper quadrant ultrasound in additional laboratory testing which demonstrate no evidence of obvious gastrointestinal pathology. The patient had serial examinations in the ED by myself over a 4 hour period. Given the patient's prior indeterminate angiogram I do feel would be prudent to admit the patient to the hospital for observation this evening. Consultation is made with the cardiology service who concurs with admission and will consult on the patient. I spoke with Dr. Chito Justice. The patient will be admitted by Dr. Encarnacion from the hospitalist service. Differential Diagnosis: Differential diagnosis considered includes gastroesophageal reflux, vasovagal syncope, myocardial infarction, peptic ulcer disease, cholelithiasis, pancreatitis, unable angina. - Data Points Laboratory Results: Laboratory Results 02/21/17 08:45 02/21/17 08:45 02/21/17 02/21/17 02/21/17 11:58 08:45 08:45 WBC 5.24 10^3/uL 10^3/uL (3.80-9.50) RBC 5.56 10^6/uL 10^6/uL (4.40-6.38) Hgb 16.0 g/dL g/dL (13.7-17.5) Hct 47.6 % % (40.0-51.0) MCV 85.6 fL fL (81.5-99.8) MCH 28.8 pg pg (27.9-34.1) MCHC 33.6 g/dL g/dL (32.4-36.7) RDW 13.5 % % (11.5-15.2) Plt Count 232 10^3/uL 10^3/uL (150-400) MPV 10.0 fL fL (8.7-11.7) Neut % (Auto) 63.0 % % (39.3-74.2) Lymph % (Auto) 22.7 % % (15.0-45.0) [place] % (Auto) 12.2 % % (4.5-13.0) Eos % (Auto) 1.1 % % (0.6-7.6) Baso % (Auto) 0.8 % % (0.3-1.7) Nucleat RBC Rel Count 0.0 % % (0.0-0.2) Absolute Neuts (auto) 3.30 10^3/uL 10^3/uL (1.70-6.50) Absolute Lymphs (auto) 1.19 10^3/uL 10^3/uL (1.00-3.00) Absolute Monos (auto) 0.64 10^3/uL 10^3/uL (0.30-0.80) Absolute Eos (auto) 0.06 10^3/uL 10^3/uL (0.03-0.40) Absolute Basos (auto) 0.04 10^3/uL 10^3/uL (0.02-0.10) Absolute Nucleated RBC 0.00 10^3/uL 10^3/uL (0-0.01) Immature Gran % 0.2 % % (0.0-1.1) Immature Gran # 0.01 10^3/uL 10^3/uL (0.00-0.10) Sodium 135 mEq/L mEq/L (134-144) Potassium 3.9 mEq/L mEq/L (3.5-5.2) Chloride 101 mEq/L mEq/L (97-110) Carbon Dioxide 24 mEq/l mEq/l (22-31) Anion Gap 10 mEq/L mEq/L (8-16) BUN 13 mg/dL mg/dL (7-23) Creatinine 1.1 mg/dL mg/dL (0.7-1.3) Estimated GFR > 60 Glucose 101 mg/dL H mg/dL (70-100) Calcium 9.9 mg/dL mg/dL (8.5-10.4) Total Bilirubin 1.3 mg/dL mg/dL (0.1-1.4) Conjugated Bilirubin 0.2 mg/dL mg/dL (0.0-0.5) Unconjugated Bilirubin 1.1 mg/dL mg/dL (0.0-1.1) AST 30 IU/L IU/L (17-59) ALT 40 IU/L IU/L (21-72) Alkaline Phosphatase 47 IU/L IU/L (38-126) Troponin I < 0.012 ng/mL ng/mL < 0.012 ng/mL ng/mL (0.000-0.034) (0.000-0.034) Total Protein 7.1 g/dL g/dL (6.3-8.2) Albumin 4.1 g/dL g/dL (3.5-5.0) Lipase 108 IU/L IU/L (23-300) Departure - Departure Disposition: [facility] Inpatient Acute Clinical Impression: Chest pain Condition: Good
[2017-02-21 08:56] LABS: % IMMATURE GRANULYOCYTES 0.2 % (0.0-1.1); ABSOLUTE IMMATURE GRANULOCYTES 0.01 10^3/uL (0.00-0.10); ADD DIFF? NO; ADD MORPH? NO; ADD SCAN? NO; ATYPICAL LYMPHOCYTE FLAG 0 (0-99); FRAGMENT RBC FLAG 0 (0-99); HEMATOCRIT 47.6 % (40.0-51.0); LEFT SHIFT FLG 0 (0-99); LIPEMIA HEMOLYSIS FLAG 80 (0-99); MEAN CELL HEMOGLOBIN 28.8 pg (27.9-34.1); MEAN CELL HEMOGLOBIN CONCENTR. 33.6 g/dL (32.4-36.7); MEAN CELL VOLUME 85.6 fL (81.5-99.8); PLATELET CLUMPS FLAG 20 (0-99); PLATELET COUNT 232 10^3/uL (150-400); RED BLOOD CELL COUNT 5.56 10^6/uL (4.40-6.38); RED CELL DISTRIBUTION WIDTH 13.5 % (11.5-15.2)
[2017-02-21 09:08] LABS: ALANINE AMINOTRANSFERASE 40 IU/L (21-72); ALBUMIN 4.1 g/dL (3.5-5.0); ALKALINE PHOSPHATASE 47 IU/L (38-126); ANION GAP 10 mEq/L (8-16); ASPARTATE AMINOTRANSFERASE 30 IU/L (17-59); BILIRUBIN,TOTAL 1.3 mg/dL (0.1-1.4); BILIRUBIN-CONJUGATED 0.2 mg/dL (0.0-0.5); BILIRUBIN-UNCONJUGATED 1.1 mg/dL (0.0-1.1); CALCIUM 9.9 mg/dL (8.5-10.4); CARBON DIOXIDE 24 mEq/l (22-31); CHLORIDE 101 mEq/L (97-110); CREATININE 1.1 mg/dL (0.7-1.3); GLOMERULAR FILTRATION RATE > 60; GLUCOSE 101 mg/dL (70-100); POTASSIUM 3.9 mEq/L (3.5-5.2); SODIUM 135 mEq/L (134-144); TOTAL PROTEIN 7.1 g/dL (6.3-8.2)
[2017-02-21 09:19] LABS: TROPONIN I < 0.012 ng/mL (0.000-0.034)
[2017-02-21] MEDS ORDERED: PROMETHAZINE HCL 25 MG/ML INJ IVP PRN (15:36)
[2017-02-21] MEDS ORDERED: ONDANSETRON 4 MG/2 ML VIAL IVP PRN (15:36)
[2017-02-21] MEDS ORDERED: ONDANSETRON DISINTEGRATING 4 MG TAB PO PRN (15:36)
[2017-02-21] MEDS ORDERED: ACETAMINOPHEN 325 MG TAB PO PRN (15:36)
[2017-02-21] MEDS ORDERED: oxyCODONE IR 5 MG TAB PO PRN (15:36)
[2017-02-21] MEDS ORDERED: NITROGLYCERIN 0.4 MG BTL SL PRN (15:40)
--- NOTE | 2017-02-21 15:48 | PDGENHP ---
History and Physical - Chief Complaint chest pain - History of Present Illness 71 yo M with hx of CAD, HTN, HLD presenting with new onset chest pain. He notes it has been present on and off since Saturday but got worse this morning and was persistent until arrival in the ER. He notes it was a 4-5 out of 10, located in the center of his chest without radiation, although he has had some right shoulder pain that he thinks is injury related. He has had associated lightheadedness and weakness as well as nausea and notes he has not eaten today. He states this pain is very similar to the pain he had prior to having stent placed. He has had this weakness and lightheadedness for some time but attributed it to side effects from his lipid medication. He stopped taking statin about 3 weeks ago and states that initially those sxs improved, but then got worse again over the last several days. History Information - Allergies/Home Medication List Allergies/Adverse Reactions: No Known Allergies Allergy (Verified 02/21/17 08:35) Home Medications: Aspirin [Aspirin 81mg (*)] 81 mg PO DAILY 02/21/17 [Last Taken 02/21/17] Herbals/Supplements -Info Only 1 ea PO DAILY 02/21/17 [Last Taken Unknown] Lisinopril [Zestril 10 mg (*)] 10 mg PO DAILY 02/21/17 [Last Taken 02/21/17] Multivitamins [Multivitamin (*)] 1 each PO Q3D 02/21/17 [Last Taken Unknown] I have personally reviewed and updated: family history, medical history, social history, surgical history - Past Medical History coronary artery disease, hypertension, hyperlipidemia - Surgical History Reports: coronary stent - Family History Positive for: CAD (father of [place] at age 75) - Social History Smoking Status: Never smoked Alcohol Use: Occasionally Drug Use: None Review of Systems Review of Systems: ROS: 10pt was reviewed & negative except for what was stated in HPI & below Physical Exam Physical Exam: Temp Pulse Resp BP Pulse Ox 36.8 C 63 14 131/86 H 96 02/21/17 15:27 02/21/17 15:27 02/21/17 15:27 02/21/17 15:27 02/21/17 15:27 O2 (L/minute) 1 Constitutional: no apparent distress, appears nourished Eyes: PERRL Ears, Nose, Mouth, Throat: moist mucous membranes, hearing normal Cardiovascular: regular rate and rhythym, no murmur, rub, or gallop, systolic murmur Respiratory: no respiratory distress, no rales or rhonchi Gastrointestinal: normoactive bowel sounds, soft, non-tender abdomen Genitourinary: no bladder tenderness Skin: warm, normal color Musculoskeletal: full muscle strength, no muscle tenderness Neurologic: AAOx3 Psychiatric: interacting appropriately, not anxious, not encephalopathic Lab Data & Imaging Review 02/21/17 08:45 02/21/17 08:45 WBC 5.24 10^3/uL (3.80-9.50) 02/21/17 08:45 RBC 5.56 10^6/uL (4.40-6.38) 02/21/17 08:45 Hgb 16.0 g/dL (13.7-17.5) 02/21/17 08:45 Hct 47.6 % (40.0-51.0) 02/21/17 08:45 MCV 85.6 fL (81.5-99.8) 02/21/17 08:45 MCH 28.8 pg (27.9-34.1) 02/21/17 08:45 MCHC 33.6 g/dL (32.4-36.7) 02/21/17 08:45 RDW 13.5 % (11.5-15.2) 02/21/17 08:45 Plt Count 232 10^3/uL (150-400) 02/21/17 08:45 MPV 10.0 fL (8.7-11.7) 02/21/17 08:45 Neut % (Auto) 63.0 % (39.3-74.2) 02/21/17 08:45 Lymph % (Auto) 22.7 % (15.0-45.0) 02/21/17 08:45 [place] % (Auto) 12.2 % (4.5-13.0) 02/21/17 08:45 Eos % (Auto) 1.1 % (0.6-7.6) 02/21/17 08:45 Baso % (Auto) 0.8 % (0.3-1.7) 02/21/17 08:45 Nucleat RBC Rel Count 0.0 % (0.0-0.2) 02/21/17 08:45 Absolute Neuts (auto) 3.30 10^3/uL (1.70-6.50) 02/21/17 08:45 Absolute Lymphs (auto) 1.19 10^3/uL (1.00-3.00) 02/21/17 08:45 Absolute Monos (auto) 0.64 10^3/uL (0.30-0.80) 02/21/17 08:45 Absolute Eos (auto) 0.06 10^3/uL (0.03-0.40) 02/21/17 08:45 Absolute Basos (auto) 0.04 10^3/uL (0.02-0.10) 02/21/17 08:45 Absolute Nucleated RBC 0.00 10^3/uL (0-0.01) 02/21/17 08:45 Immature Gran % 0.2 % (0.0-1.1) 02/21/17 08:45 Immature Gran # 0.01 10^3/uL (0.00-0.10) 02/21/17 08:45 Sodium 135 mEq/L (134-144) 02/21/17 08:45 Potassium 3.9 mEq/L (3.5-5.2) 02/21/17 08:45 Chloride 101 mEq/L (97-110) 02/21/17 08:45 Carbon Dioxide 24 mEq/l (22-31) 02/21/17 08:45 Anion Gap 10 mEq/L (8-16) 02/21/17 08:45 BUN 13 mg/dL (7-23) 02/21/17 08:45 Creatinine 1.1 mg/dL (0.7-1.3) 02/21/17 08:45 Estimated GFR > 60 02/21/17 08:45 Glucose 101 mg/dL (70-100) H 02/21/17 08:45 Calcium 9.9 mg/dL (8.5-10.4) 02/21/17 08:45 Total Bilirubin 1.3 mg/dL (0.1-1.4) 02/21/17 08:45 Conjugated Bilirubin 0.2 mg/dL (0.0-0.5) 02/21/17 08:45 Unconjugated Bilirubin 1.1 mg/dL (0.0-1.1) 02/21/17 08:45 AST 30 IU/L (17-59) 02/21/17 08:45 ALT 40 IU/L (21-72) 02/21/17 08:45 Alkaline Phosphatase 47 IU/L (38-126) 02/21/17 08:45 Troponin I < 0.012 ng/mL (0.000-0.034) 02/21/17 11:58 Total Protein 7.1 g/dL (6.3-8.2) 02/21/17 08:45 Albumin 4.1 g/dL (3.5-5.0) 02/21/17 08:45 Lipase 108 IU/L (23-300) 02/21/17 08:45 Visualized and Interpreted Chest x-ray results: Yes Chest X-Ray results: normal Visualized and Interpreted imaging results: Yes Interpretation: abd US: normal Visualized and Interpreted EKG results: Yes EKG Interpretation: Positive for: normal sinsus rhythm Assessment & Plan Assessment: Chest pain (Acute) 71 yo M with PMH of CAD s/p stent in 08/2016 presenting with chest pain # chest pain: concerning given that sxs are the same as the ones he had prior to his stent. Initial w/u is non diagnostic, with normal troponin and non ischemic ecg. Plan is for tele monitoring, serial trops and ecgs. Cardiology has been consulted--further ischemic w/u with cath versus stress test to be performed, will defer to cardiology. # CAD: with stent to the D2 in August but residual disease in the OM that was not intervened on, as above, cath versus stress in am # HLD: has been off of statin x 3 weeks because of suspected side effects, will check lipid panel # HTN: per patient has been very well controlled, will continue home medications # dispo: observation status for now, if he requires cath and stent will need > 48 hours stay Patient new to my care. Old records reviewed and summarized as above. Care plan reviewed with ER doctor as above.
[2017-02-22 05:59] LABS: % IMMATURE GRANULYOCYTES 0.2 % (0.0-1.1); ABSOLUTE IMMATURE GRANULOCYTES 0.01 10^3/uL (0.00-0.10); ADD DIFF? NO; ADD MORPH? NO; ADD SCAN? NO; ATYPICAL LYMPHOCYTE FLAG 10 (0-99); FRAGMENT RBC FLAG 0 (0-99); HEMATOCRIT 45.8 % (40.0-51.0); HEMOGLOBIN 15.8 g/dL (13.7-17.5); LEFT SHIFT FLG 0 (0-99); LIPEMIA HEMOLYSIS FLAG 90 (0-99); MEAN CELL HEMOGLOBIN CONCENTR. 34.5 g/dL (32.4-36.7); MEAN CELL VOLUME 84.2 fL (81.5-99.8); MEAN PLATELET VOLUME 10.1 fL (8.7-11.7); PLATELET CLUMPS FLAG 0 (0-99); PLATELET COUNT 227 10^3/uL (150-400); RED BLOOD CELL COUNT 5.44 10^6/uL (4.40-6.38); RED CELL DISTRIBUTION WIDTH 13.6 % (11.5-15.2)
[2017-02-22 06:12] LABS: ANION GAP 9 mEq/L (8-16); CALCIUM 9.5 mg/dL (8.5-10.4); CARBON DIOXIDE 24 mEq/l (22-31); CHLORIDE 105 mEq/L (97-110); GLOMERULAR FILTRATION RATE > 60; GLUCOSE 86 mg/dL (70-100); POTASSIUM 4.2 mEq/L (3.5-5.2); SODIUM 138 mEq/L (134-144)
[2017-02-22] MEDS: CLOPIDOGREL BISULFATE 75 MG TAB PO SCH (08:32)
[2017-02-22] MEDS: ASPIRIN 81 MG CHEWABLE TAB PO SCH (08:33)
[2017-02-22] MEDS: LISINOPRIL 10 MG TAB PO SCH (08:33)
--- NOTE | 2017-02-22 08:51 | CPEKG ---
Heart Rate: 64 RR Interval: 938 P-R Interval: 192 QRSD Interval: 88 QT Interval: 396 QTC Interval: 409 P [place]: 34 QRS [place]: 13 T Wave [place]: 75 EKG Severity - OTHERWISE NORMAL ECG - EKG Impression: SINUS RHYTHM EKG Impression: LOW VOLTAGE IN FRONTAL LEADS Electronically Signed By: Amber Keita 22-Feb-2017 11:55:37
[2017-02-22 11:01] LABS: CHOLESTEROL 257 mg/dL (140-220); CHOLESTEROL/HDL RATIO 7.34 RATIO (1.00-4.97); HIGH DENSITY LIPOPROTEIN 35 mg/dL (40-65); LDL/HDL RATIO 5.54 RATIO (1.00-3.64); LOW DENSITY LIPOPROTEIN 194 mg/dL (80-100); NON-HIGH DENSITY LIPOPROTEIN 222 mg/dL (90-129); TRIGLYCERIDE 144 mg/dL (40-150); VERY LOW DENSITY LIPOPROTEINS 28 mg/dL (8-25)
--- NOTE | 2017-02-22 15:01 | ASMTCMCOM ---
CM Note CM Note Notes: Chart reviewed, pt is a 71 y/o man admitted w/ CP. Pt will most likely discharge with supportive when medically stable. No therapies ordered at this time. CM available for changes. Date Signed: 02/22/2017 03:01 PM Electronically Signed By:AJAY Kirk
--- NOTE | 2017-02-22 15:46 | PDCARCONS ---
Cardiology Consult Reason for Consult: Chest pain similar to pain prior to stent placement. Echocardiogram reveals blockage. Chief Complaint: Chest pain, shortness of breath Requesting Physician: Joseluis Kramer History of Present Illness: Buddy Johnson has a history of CAD with stent placement in August 2016. The patient went to the emergency department today because of acute angina, shortness of breath, and weakness. The patient states he developed chest pain on Saturday (3 days ago) while going for a walk. On Saturday he continued to have chest pressure with associated weakness with shortness of breath. The patient states his pain feels similar to the pain he experienced prior to stent placement. He was admitted and I was called to consult on the patient. The patient states his chest pain has resolved since onset. I reviewed the patients cardiac cath which showed blockage of the diagonal which was stented and of the obtuse marginal which appeared to be severely diseased but had a negative fractional flow assessment. Due to recurrence of symptoms that he had prior to stent placement I recommend an angiogram. He is a patient of Dr. Rbuy. He is electing to have the procedure performed now by me while he is here in the hospital. I have explained the risks, expected benefits and potential complications of this course of action with the patient and he wishes to proceed as planned. Some potential benefits include angina relief, definitive assessment of coronary anatomy and LV function. Complications have been described as , permanent and disabling stroke, heart attack, abnormal heart rhythm, bleeding and damage to blood vessels resulting in tissue or limb loss. History Information - Allergies/Home Medication List Allergies/Adverse Reactions: No Known Allergies Allergy (Verified 02/21/17 08:35) Home Medications: Aspirin [Aspirin 81mg (*)] 81 mg PO DAILY 02/21/17 [Last Taken 02/21/17] Herbals/Supplements -Info Only 1 ea PO DAILY 02/21/17 [Last Taken Unknown] Lisinopril [Zestril 10 mg (*)] 10 mg PO DAILY 02/21/17 [Last Taken 02/21/17] Multivitamins [Multivitamin (*)] 1 each PO Q3D 02/21/17 [Last Taken Unknown] Past Medical History: - Past Medical History hypertension, hyperlipidemia - Social History Smoking Status: Never smoked Alcohol Use: Occasionally Drug Use: None Cardiac History - Cardiac History Past Cardiac History: CAD, PCI Cardiac Risk Factors: male Timing/Duration: Days Severity: moderate Location: substernal Activities at Onset: activity Modifying Factors: improves with: other (none ) Associated Symptoms: chest pain, shortness of breath, weakness FAYE Risk Evaluation age greater or equal to 65: yes greater or equal to 3 CAD risk factors: yes known CAD(stenosis greater or eqaul to 50%): yes ASA use in past 7 days: yes severe angina(greater or equal to 2 episodes in 24hrs): yes EKG ST changes greater or equal to 0.5mm: no positive cardiac marker: no Total Score: 5 FAYE Score: 26.2% risk Physical Exam Physical Exam: Temp Pulse Resp BP Pulse Ox 36.8 C 63 16 114/76 97 02/22/17 11:50 02/22/17 11:50 02/22/17 11:50 02/22/17 11:50 02/22/17 11:50 O2 (L/minute) 1 Eyes: PERRL, anicteric sclera, EOMI Ears, Nose, Mouth, Throat: moist mucous membranes, hearing normal Cardiovascular: regular rate and rhythym Gastrointestinal: normoactive bowel sounds, soft, non-tender abdomen Psychiatric: interacting appropriately, not anxious, No anxious, No depressed, No flat affect Lab and Imaging 02/22/17 05:43 02/22/17 05:43 WBC 6.43 10^3/uL (3.80-9.50) 02/22/17 05:43 RBC 5.44 10^6/uL (4.40-6.38) 02/22/17 05:43 Hgb 15.8 g/dL (13.7-17.5) 02/22/17 05:43 Hct 45.8 % (40.0-51.0) 02/22/17 05:43 MCV 84.2 fL (81.5-99.8) 02/22/17 05:43 MCH 29.0 pg (27.9-34.1) 02/22/17 05:43 MCHC 34.5 g/dL (32.4-36.7) 02/22/17 05:43 RDW 13.6 % (11.5-15.2) 02/22/17 05:43 Plt Count 227 10^3/uL (150-400) 02/22/17 05:43 MPV 10.1 fL (8.7-11.7) 02/22/17 05:43 Neut % (Auto) 70.1 % (39.3-74.2) 02/22/17 05:43 Lymph % (Auto) 17.6 % (15.0-45.0) 02/22/17 05:43 Floyd % (Auto) 9.6 % (4.5-13.0) 02/22/17 05:43 Eos % (Auto) 1.9 % (0.6-7.6) 02/22/17 05:43 Baso % (Auto) 0.6 % (0.3-1.7) 02/22/17 05:43 Nucleat RBC Rel Count 0.0 % (0.0-0.2) 02/22/17 05:43 Absolute Neuts (auto) 4.51 10^3/uL (1.70-6.50) 02/22/17 05:43 Absolute Lymphs (auto) 1.13 10^3/uL (1.00-3.00) 02/22/17 05:43 Absolute Monos (auto) 0.62 10^3/uL (0.30-0.80) 02/22/17 05:43 Absolute Eos (auto) 0.12 10^3/uL (0.03-0.40) 02/22/17 05:43 Absolute Basos (auto) 0.04 10^3/uL (0.02-0.10) 02/22/17 05:43 Absolute Nucleated RBC 0.00 10^3/uL (0-0.01) 02/22/17 05:43 Immature Gran % 0.2 % (0.0-1.1) 02/22/17 05:43 Immature Gran # 0.01 10^3/uL (0.00-0.10) 02/22/17 05:43 D-Dimer 0.28 ug/mLFEU (0.00-0.50) 02/22/17 11:49 Sodium 138 mEq/L (134-144) 02/22/17 05:43 Potassium 4.2 mEq/L (3.5-5.2) 02/22/17 05:43 Chloride 105 mEq/L (97-110) 02/22/17 05:43 Carbon Dioxide 24 mEq/l (22-31) 02/22/17 05:43 Anion Gap 9 mEq/L (8-16) 02/22/17 05:43 BUN 15 mg/dL (7-23) 02/22/17 05:43 Creatinine 1.0 mg/dL (0.7-1.3) 02/22/17 05:43 Estimated GFR > 60 02/22/17 05:43 Glucose 86 mg/dL (70-100) 02/22/17 05:43 Calcium 9.5 mg/dL (8.5-10.4) 02/22/17 05:43 Total Bilirubin 1.3 mg/dL (0.1-1.4) 02/21/17 08:45 Conjugated Bilirubin 0.2 mg/dL (0.0-0.5) 02/21/17 08:45 Unconjugated Bilirubin 1.1 mg/dL (0.0-1.1) 02/21/17 08:45 AST 30 IU/L (17-59) 02/21/17 08:45 ALT 40 IU/L (21-72) 02/21/17 08:45 Alkaline Phosphatase 47 IU/L (38-126) 02/21/17 08:45 Troponin I < 0.012 ng/mL (0.000-0.034) 02/21/17 23:42 Total Protein 7.1 g/dL (6.3-8.2) 02/21/17 08:45 Albumin 4.1 g/dL (3.5-5.0) 02/21/17 08:45 Triglycerides 144 mg/dL (40-150) 02/22/17 05:43 Cholesterol 257 mg/dL (140-220) H 02/22/17 05:43 Cholesterol Risk Factr 1.8 (0.2-1.0) H 02/22/17 05:43 LDL Cholesterol, Calc 194 mg/dL (80-100) H 02/22/17 05:43 LDL Risk Factor 1.6 (0.2-1.0) H 02/22/17 05:43 VLDL Cholesterol 28 mg/dL (8-25) H 02/22/17 05:43 Non-HDL Cholesterol 222 mg/dL (90-129) H 02/22/17 05:43 HDL Cholesterol 35 mg/dL (40-65) L 02/22/17 05:43 LDL/HDL Ratio 5.54 RATIO (1.00-3.64) H 02/22/17 05:43 Cholesterol/HDL Ratio 7.34 RATIO (1.00-4.97) H 02/22/17 05:43 Lipase 108 IU/L (23-300) 02/21/17 08:45 Visualized and Interpreted Chest x-ray results: No Visualized and Interpreted EKG results: Yes EKG additional interpertation: ST abnormalities EArly R wave progression Telemetry: no significant tachy or bradydysrhythmia A/P Assessment: Unstable angina pectoris with known CAD at least moderate in severity of the posterior circulation. Similar symptoms prior to diagonal stent...Needs repeat cath... I have discussed risk, benefit, and alternatives of this course of action with the patient who agrees to proceed as planned.
--- NOTE | 2017-02-22 15:50 | PDPROPOC ---
Sedation Plan of Care Sedation Plan of Care: vital signs stable, mental status noted, patient educated of risks, benefits, alternatives, patient can tolerate sedation ASA Classification: ASA 3 Planned drugs: fentanyl, midazolam, other (Etomidate possibly) Mallampati Score: Class 2 Mallampati Reference Image: Patient passed 3-3-2 rule?: Yes
--- NOTE | 2017-02-22 15:52 | PDHPUP ---
History & Physical Update H&P update statement: This history and physical update is based on an assessment of the patient which was completed after admission or registration (within 24 hours), but prior to the surgery/procedure. H&P update: H&P reviewed & patient examined, no change in patient's condition since H&P completed (Pt with angina at minimal exertion CCS Class III symptoms similar to prior to stent)
[2017-02-22] MEDS ORDERED: fentaNYL 100 MCG/2 ML INJ ONE (15:56)
[2017-02-22] MEDS ORDERED: LIDOCAINE 1% 300 MG/30 ML SDV ONE (15:56)
[2017-02-22] MEDS ORDERED: IOPAMIDOL (ISOVUE-370) 150 ML BTL IV ONE ×2 (15:57→17:29)
[2017-02-22] MEDS ORDERED: MIDAZOLAM 2 MG/2 ML VIAL ONE (15:57)
[2017-02-22] MEDS ORDERED: BIVALIRUDIN 250 MG/5 ML VIAL IV ONE (16:53)
--- NOTE | 2017-02-22 16:54 | PDDXCAT ---
Diagnostic Cath Note - . Date: 02/22/17 Executive Assistant To General Counsel: Reshma Indication: CCC Class III and IV angina on medical treatment - Procedure Access: right groin Procedure: coronary angiography, other (coronary catheterization PTCA AND STENT OF OM 1 AND 2) - Materials Left Heart Cath size: 6F Left Heart Cath materials: JL4.0, JR4.0 - Findings-Left Heart Catheterization LM: 8mm in size and fiburcates to Circ and LAD system. LAD: LAD proximally is 3.5 mm in size and appears diffusely diseased. A 30% eccentric plaque is present at the level of the first diagonal takeoff. The second diagonal was previously stented. There is no evidence of end stent or end segment restenosis. There is FAYE III flow in the second diagonal and the distal LAD. No flow limiting obstruction is identified. LCX: Circ is codominant. There is a critical obstruction at the obtuse marginal showing 99% obstruction. There is an 85% of second and major OM which appears to have progressed compared to the study performed in August. The LCX proper is diffusely diseased distal to the obtuse marginal takeoff maximal lumenal stenosis is 30%. RCA: 2.75 mm in size, diffusely diseased and appears similar to its condition as noted in 08/28 2016. - Findings-Right Heart Catheterization AO: Pressure 117/57. Complications: NONE. Estimated blood loss: <50ml Closure method: manual pressure Assessment: Diffuse circle vessel coronary disease as previously described. Progression of plaque in the OM1 and OM2. The OM1 is the likely cause of recurrent angina. Please see intervention note below. Plan: Overnight admission for telemetry monitoring. Dual antiplatelet therapy with Aspirin 325mg for the first month followed by Aspirin 81mg along with Plavix 75mg daily should be continued for at least 1 year following drug eluting stent implantation. No elective surgery for the first 3 months. Decisions to stop dual antiplatelet therapy before 1 year should involve our office [facility]. Intervention: 7 [place] [employer] EBU 3.5 guiding catheter was used for guide catheter support. A 0.014 [place] J was used to cross the lesions in the OM 1 and 2. The OM1 was predilated with a 2.0 x 15mm Emerge x2 in the first obtuse marginal. Pretreatment there was a 99% lesion in the OM1 ostium. The lesion was then stented with a 2.25 x 16mm Synergy stent was then used to stent the first OM with a 0% residual stenosis. There was FAYE III flow pre and post stent implantation. 300mcg intracoronary nitroglycerin was given. The wire was redirected into the second OM. The lesion was primarily stented with a 3.0 x 12mm Synergy drug eluting stent. Pretreatment stenosis was 85% with 10% residual. There was FAYE III flow pre and post. FINAL IMPRESSION: Successful drug eluting stent implantation of OM 1 and 2. Patient Problems: Problems Problem Status Onset Chest pain Acute Abnormal EKG Acute Acute chest pain Acute Transient global amnesia Acute
[2017-02-22] MEDS ORDERED: NITROGLYCERIN 1,500 MCG/15 ML VIAL MISC ONE (17:26)
[2017-02-22] MEDS ORDERED: CLOPIDOGREL BISULFATE 75 MG TAB ONE (17:42)
[2017-02-22] MEDS ORDERED: LORazepam 2 MG/ML INJ IVP PRN (17:55)
[2017-02-22] MEDS ORDERED: TEMAZEPAM 15 MG CAP PO PRN (17:55)
[2017-02-22] MEDS ORDERED: HYDROCODONE/APAP 5/325 TAB PO PRN (17:55)
[2017-02-22] MEDS ORDERED: ATROPINE SULFATE 1 MG/10 ML SYR IVP PRN (17:55)
[2017-02-22] MEDS ORDERED: CLOPIDOGREL BISULFATE 75 MG TAB PO ONE (17:55)
[2017-02-22] MEDS ORDERED: NS 1,000 ML IV SCH (18:00)
[2017-02-22] MEDS ORDERED: KETOROLAC 15 MG/1 ML SDV IVP ONE (18:00)
--- NOTE | 2017-02-22 18:10 | CPEKG ---
Heart Rate: 64 RR Interval: 938 P-R Interval: 184 QRSD Interval: 86 QT Interval: 388 QTC Interval: 401 P [place]: 41 QRS [place]: 44 T Wave [place]: 59 EKG Severity - NORMAL ECG - EKG Impression: SINUS RHYTHM Electronically Signed By: Amber Keita 23-Feb-2017 14:41:43
[2017-02-22] MEDS ORDERED: KETOROLAC 30 MG/1 ML SDV IVP ONE (18:30)
[2017-02-22] MEDS ORDERED: FAMOTIDINE 20 MG in NS 100 ML IV ONE (18:33)
[2017-02-22] MEDS ORDERED: FAMOTIDINE 20 MG/NACL 50 ML IV ONE (18:45)
--- NOTE | 2017-02-22 19:41 | HOSPPROG ---
Hospitalist Progress Note Assessment/Plan: Assessment: 71-year-old male presents with unstable angina in the setting of known coronary artery disease Plan: 1. Unstable angina. Acute, new problem, further w/u indicated. Evidenced by symptoms occurring at rest over the 3 days prior to presentation, cardiac catheterization by Dr. Chito Justice demonstrating critical stenosis of OM1 and OM2, requiring CHELSIE placement - EKG NSR, US of RUR normal, Cr 1.0 - d/w Dr. Justice, he reports stents placed, started on dual-antiplatelet therapy , admit o/n for arrhythmia monitoring - groin precautions - monitor on tele - ASA 325/plavix - cont bblocker/statin - ambulation up stairs d/w patient and family, awaiting recommendations for activity from Dr. Justice in AM 2. CAD. Chronic, tx as above Code. Full Diet. Regular PPx. Mod risk, hold additional pharm given cath, SCDs Dispo. Upgrade to inpatient admission status at it is anticipate he will require > 2midnights of care for reasonable medical necessity including unstable angina requiring cardiac cath and post-cath rhythm monitoring to ensure not arrhythmia. Subjective: hungry, minimal pain Objective: Vital Signs Temp Pulse Resp BP Pulse Ox 36.8 C 63 16 114/76 97 02/22/17 11:50 02/22/17 11:50 02/22/17 11:50 02/22/17 11:50 02/22/17 11:50 Laboratory Results 02/22/17 05:43 02/22/17 05:43 02/21/17 02/22/17 02/23/17 05:59 05:59 05:59 Intake Total 300 940 Balance 300 940 - Physical Exam Constitutional: no apparent distress, appears nourished, not in pain, uncomfortable Cardiovascular: regular rate and rhythym, no murmur, rub, or gallop Respiratory: no respiratory distress, no rales or rhonchi, clear to auscultation , No respiratory distress Gastrointestinal: normoactive bowel sounds, soft, non-tender abdomen, no palpable masses, No distension Skin: other (no ecchymoses/induration/tenderness/erythema at cath site in R groin) Neurologic: AAOx3, sensation intact bilaterally Psychiatric: interacting appropriately, not anxious, not encephalopathic, thought process linear ICD10 Worksheet Patient Problems: Problems Problem Status Onset Transient global amnesia Acute Acute chest pain Acute Abnormal EKG Acute Chest pain Acute
[2017-02-23 05:17] LABS: % IMMATURE GRANULYOCYTES 0.3 % (0.0-1.1); ABSOLUTE IMMATURE GRANULOCYTES 0.02 10^3/uL (0.00-0.10); ADD DIFF? NO; ADD MORPH? NO; ADD SCAN? NO; ATYPICAL LYMPHOCYTE FLAG 0 (0-99); FRAGMENT RBC FLAG 0 (0-99); HEMATOCRIT 41.1 % (40.0-51.0); HEMOGLOBIN 14.2 g/dL (13.7-17.5); LEFT SHIFT FLG 0 (0-99); LIPEMIA HEMOLYSIS FLAG 90 (0-99); MEAN CELL HEMOGLOBIN 29.4 pg (27.9-34.1); MEAN CELL HEMOGLOBIN CONCENTR. 34.5 g/dL (32.4-36.7); MEAN CELL VOLUME 85.1 fL (81.5-99.8); MEAN PLATELET VOLUME 10.4 fL (8.7-11.7); PLATELET CLUMPS FLAG 0 (0-99); PLATELET COUNT 213 10^3/uL (150-400); RED BLOOD CELL COUNT 4.83 10^6/uL (4.40-6.38); RED CELL DISTRIBUTION WIDTH 13.5 % (11.5-15.2)
[2017-02-23 05:32] LABS: ALBUMIN 3.2 g/dL (3.5-5.0); ANION GAP 6 mEq/L (8-16); ASPARTATE AMINOTRANSFERASE 22 IU/L (17-59); BILIRUBIN,TOTAL 1.1 mg/dL (0.1-1.4); CALCIUM 8.9 mg/dL (8.5-10.4); CARBON DIOXIDE 23 mEq/l (22-31); CHLORIDE 103 mEq/L (97-110); GLOMERULAR FILTRATION RATE > 60; GLUCOSE 79 mg/dL (70-100); LACTATE DEHYDROGENASE 402 IU/L (313-618); MAGNESIUM 1.9 mg/dL (1.6-2.3); POTASSIUM 4.2 mEq/L (3.5-5.2); SODIUM 132 mEq/L (134-144)
[2017-02-23 07:37] VITALS: RESP 17
[2017-02-23 08:26] VITALS: BP 111/68; PULSE 60; TEMP 98.1; O2SAT 97
[2017-02-23] MEDS: ASPIRIN 81 MG CHEWABLE TAB PO SCH (08:27)
[2017-02-23] MEDS: CLOPIDOGREL BISULFATE 75 MG TAB PO SCH (08:27)
[2017-02-23] MEDS: LISINOPRIL 10 MG TAB PO SCH (08:27)
--- NOTE | 2017-02-23 08:32 | CPEKG ---
Heart Rate: 58 RR Interval: 1034 P-R Interval: 180 QRSD Interval: 94 QT Interval: 396 QTC Interval: 389 P [place]: 37 QRS [place]: 16 T Wave [place]: 72 EKG Severity - BORDERLINE ECG - EKG Impression: SINUS RHYTHM EKG Impression: BORDERLINE T WAVE ABNORMALITIES Electronically Signed By: Amber Keita 23-Feb-2017 14:41:55
[2017-02-23] MEDS ORDERED: ATORVASTATIN CALCIUM 40 MG TAB PO SCH (09:00)
--- NOTE | 2017-02-23 09:46 | PDCARPN ---
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 Other PMH includes known moderate disease, dyslipidemia, htn. #. ACS: s/p PTCA/stenting to OM1 for 99% stenosis with 2.25x16 mm Synergy stent and 85% OM2 s/p 3.0 x 12 mm Synergy stent continue DAPT with increase in ASA dose for 1 month groin precautions reviewed #. dyslipidemia: LDL 194 off statin we reviewed options for treatment and he is agreeable to try Crestor #. htn: BP appears controlled not on BB ? slow heart rates will have him follow up with Richy White NP, post-hospitalization to review medical management Plan: Pt OK to discharge from cardiology perspective. Subjective: No groin pain or cp. Reviewed/Discussed With: hospitalist Time Spent With Patient: 25 minutes Objective: Vital Signs (8 Hrs) Temp Pulse Resp BP Pulse Ox 02/23/17 08:27 111/68 02/23/17 08:22 98.1 F 60 17 111/68 97 02/23/17 04:00 97.9 F 55 L 18 98/67 L 96 Intake/Output (24 Hrs) 02/22/17 02/23/17 02/24/17 05:59 05:59 05:59 Intake Total 1590 Output Total 600 Balance 990 Intake: Oral (ml) 240 IV Intake (ml) 1350 Output: Urine (ml) 600 Toilet 600 Other: Number of Voids Toilet 1 Result Diagrams: 02/23/17 03:46 02/23/17 03:46 Telemetry: Sinus rhythm - Physical Exam Constitutional: healthy appearing, no apparent distress Eyes: PERRL Ears, Nose, Mouth, Throat: moist mucous membranes Cardiovascular: regular rate and rhythm Peripheral Pulses: 2+: femoral (R) (no bruits), dorsalis-pedis (R), dorsalis- pedis (L) Neurologic: AAOx3 Psychiatric: cooperative, interactive ICD10 Worksheet Patient Problems: Problems Problem Status Onset Chest pain Acute Abnormal EKG Acute Acute chest pain Acute Transient global amnesia Acute
--- NOTE | 2017-02-23 10:07 | PDDCSUM ---
Discharge Summary Discharge Summary: DISCHARGE SUMMARY FOLLOW-UP ITEMS: Outpatient Cardiology follow-up appointment DATE OF ADMISSION: 02/21/2017 DATE OF DISCHARGE: 02/23/2017 DISCHARGE DIAGNOSES: 1. Acute unstable angina 2. Chronic coronary artery disease CONSULTATIONS: Cardiology PROCEDURES / IMAGING: Left heart catheterization by Dr. Chito Justice with 2 drug-eluting stents placed in the OM1 and OM2 CHIEF COMPLAINT: Acute shortness of breath SUBJECTIVE: Patient is feeling well at time of discharge PHYSICAL EXAM ON DISCHARGE: Systolic blood pressure is 100-110, heart rate 60, afebrile overnight, lungs are clear to auscultation bilaterally, heart rhythm is regular comma groin site is not ecchymotic, nontender LABS ON DISCHARGE: LDL 194, hemoglobin A1c pending at time of discharge HOSPITAL COURSE BY PROBLEM: 1. Acute unstable angina. The patient presented with acute unstable angina evidenced by symptoms occurring at rest over the 3 days prior to presentation. He underwent cardiac catheterization by Dr. Chito Justice this demonstrated critical stenosis of the OM1 and OM2. Received drug-eluting stents to both lesions and he has been chest pain and shortness of breath free after the procedure. He has not experienced any catheter site complications. Dr. Justice has recommended 1 month of aspirin 325 and Plavix 75, followed by aspirin 81 and Plavix 75. The patient has any indication for statin and he will trial Crestor. His heart rate is currently in the upper 50s, low 60s, and beta- blockers contraindicated. He will continue on his home LOVE-inhibitor. He has a prescription for sublingual nitroglycerin tabs as needed. DISCHARGE MEDICATIONS: Please see official discharge medication reconciliation sheet in chart , Plavix 75, aspirin 325, Crestor 20, sublingual nitroglycerin as needed, lisinopril 10 DISCHARGE INSTRUCTIONS: Please follow up with Cardiology as recommended TIME SPENT: Greater than 30 minutes were spent on direct patient care, as well as discharge planning and preparation.
--- NOTE | 2017-02-23 15:48 | ASDISCHSUM ---
Discharge Information Plan Status:Home with No Needs Medically Cleared to Leave:02/23/2017 Discharge Date:02/23/2017 10:45 AM CM D/C Disposition:Home, Routine, Self-Care ADT D/C Disposition:Home, Routine, Self-Care Projected Discharge Date:02/23/2017 12:00 AM Transportation at D/C:Family Discharge Delay Reason: Follow-Up Date:02/23/2017 12:00 AM Discharge Slot: Final Diagnosis: Placement Information Patient Contact Information Contact Name:EMANUEL Relationship: Address:[address] Phone: City:[place] Alternate Phone: [facility]/Zip Code:[place] [address] Email: Financial Information Financial Class: Primary Plan Desc:MEDICARE OUTPATIENT Primary Plan Number:[id number] Secondary Plan Desc: Secondary Plan Number: Assessment Information [facility] CM Progress Note CM Note CM Note Notes: Chart reviewed, pt is a 71 y/o man admitted w/ CP. Pt will most likely discharge with supportive when medically stable. No therapies ordered at this time. CM available for changes. Date Signed: 02/22/2017 03:01 PM Electronically Signed By:AJAY Kirk Intervention Information Intervention Type:*MANZANO-Signed Date of Service:02/22/2017 10:27 AM Patient Type:Observation Staff Member:Zulma Rod Hours: Discipline: Severity: Comment: Intervention Type:*[place] 72 Date of Service:02/21/2017 03:36 PM Patient Type:Inpatient Staff Member:BOB Ny, Nydia Hours:0.25 Discipline: Severity:1 (0-1 Hours) Comment:Occ 72 for 02/21/2017 as patient discha rged 02/23/2017 0929 (< 2 MN LOS after patie nt admission status changed from observation to inpatient).
[2017-02-24] MEDS ORDERED: MULTIVITAMINS 1 EACH TAB PO SCH (08:00)
[2017-02-25 04:56] LABS: HEMOGLOBIN A1C 5.8 % (4.0-6.0)
== END 2017-02-23 10:45 | disposition home or self-care (01) | DRG 247 ==
LOC: F2W 14:23 → OBSVTOIN 02-22 18:56
PROVIDERS: ADMIT Internal Medicine; ATTEND Internal Medicine
DX: I25.110 Atherosclerotic heart disease of native coronary artery with unstable angina pectoris (principal); I10 Essential (primary) hypertension; E78.5 Hyperlipidemia, unspecified; Z95.5 Presence of coronary angioplasty implant and graft
CPT/HCPCS: 97161-GP; C1725; C1760; C1769; C1874; C1887; C9600; C9601; G0378; G8978-GP-CH; G8979-GP-CH; G8980-GP-CH; J0583; J1885; J2250; J3010; Q9967

== ENCOUNTER → 2017-03-20 | Outpatient (CLI) | payer OTHER | LOC: FIMAGING 10:19 | PROVIDERS: ATTEND Internal Medicine | DX: M50.31 Other cervical disc degeneration, high cervical region (principal) ==

== ENCOUNTER 2017-05-09 14:33 | Observation (INO) | payer OTHER ==
--- NOTE | 2017-05-09 14:48 | CPEKG ---
Heart Rate: 71 RR Interval: 845 P-R Interval: 180 QRSD Interval: 94 QT Interval: 364 QTC Interval: 396 P [place]: 31 QRS [place]: 35 T Wave [place]: 76 EKG Severity - BORDERLINE ECG - EKG Impression: SINUS RHYTHM EKG Impression: BORDERLINE T WAVE ABNORMALITIES Electronically Signed By: Tino Jones 09-May-2017 15:15:44
[2017-05-09 15:01] LABS: % IMMATURE GRANULYOCYTES 0.2 % (0.0-1.1); ABSOLUTE IMMATURE GRANULOCYTES 0.01 10^3/uL (0.00-0.10); ADD DIFF? NO; ADD MORPH? NO; ADD SCAN? NO; ATYPICAL LYMPHOCYTE FLAG 0 (0-99); FRAGMENT RBC FLAG 0 (0-99); LEFT SHIFT FLG 0 (0-99); LIPEMIA HEMOLYSIS FLAG 90 (0-99); MEAN CELL HEMOGLOBIN CONCENTR. 35.6 g/dL (32.4-36.7); MEAN CELL VOLUME 84.3 fL (81.5-99.8); PLATELET CLUMPS FLAG 0 (0-99); PLATELET COUNT 229 10^3/uL (150-400); RED BLOOD CELL COUNT 5.34 10^6/uL (4.40-6.38); RED CELL DISTRIBUTION WIDTH 13.5 % (11.5-15.2)
[2017-05-09 15:10] LABS: ALANINE AMINOTRANSFERASE 43 IU/L (21-72); ALBUMIN 4.2 g/dL (3.5-5.0); ALKALINE PHOSPHATASE 53 IU/L (38-126); ANION GAP 14 mEq/L (8-16); ASPARTATE AMINOTRANSFERASE 38 IU/L (17-59); BILIRUBIN,TOTAL 0.8 mg/dL (0.1-1.4); CALCIUM 9.8 mg/dL (8.5-10.4); CARBON DIOXIDE 22 mEq/l (22-31); CHLORIDE 105 mEq/L (97-110); CREATININE 0.9 mg/dL (0.7-1.3); GLOMERULAR FILTRATION RATE > 60; GLUCOSE 137 mg/dL (70-100); POTASSIUM 3.9 mEq/L (3.5-5.2); SODIUM 141 mEq/L (134-144); TOTAL PROTEIN 6.6 g/dL (6.3-8.2)
--- NOTE | 2017-05-09 15:13 | EDPHY ---
H & P Stated Complaint: cp with hx stents Time Seen by Provider: 05/09/17 15:01 HPI/ROS: CHIEF COMPLAINT: Chest pain HISTORY OF PRESENT ILLNESS: Patient is a 71-year-old man who comes to the emergency department complaining of chest pain that began at 9 o'clock this morning. It his decreased in intensity but is still present. It has been fluctuating throughout the day. He has not had a fever or cough. He has not had shortness of breath. He does feel weak. He does feel lightheaded. He has not fainted. He had a stent placed in August by Dr. Ruby and was seen again in February with chest pain. At that time he had another catheterization the and required [address] Justice. He states that his symptoms today are similar to February. No nausea vomiting or GI symptoms. REVIEW OF SYSTEMS: Constitutional: denies: chills, fever, recent illness, recent injury EENTM: denies: blurred vision, double vision, nose congestion Respiratory: denies: cough, shortness of breath Cardiac: See HPI Gastrointestinal/Abdominal: denies: abdominal pain, diarrhea, nausea, vomiting, blood streaked stools Genitourinary: denies: dysuria, frequency, hematuria, pain Musculoskeletal: denies: joint pain, muscle pain Skin: denies: lesions, rash, jaundice, bruising Neurological: denies: headache, numbness, paresthesia, tingling, dizziness, weakness Hematologic/Lymphatic: denies: blood clots, easy bleeding, easy bruising Immunologic/allergic: denies: HIV/AIDS, transplant EXAM: GENERAL: Well-appearing, well-nourished and in no acute distress. HEAD: Atraumatic, normocephalic. EYES: Pupils equal round and reactive to light, extraocular movements intact, sclera anicteric, conjunctiva are normal. ENT: TMs normal, nares patent, oropharynx clear without exudates. Moist mucous membranes. NECK: Normal range of motion, supple without lymphadenopathy or JVD. LUNGS: Breath sounds clear to auscultation bilaterally and equal. No wheezes rales or rhonchi. HEART: Regular rate and rhythm without murmurs, rubs or gallops. ABDOMEN: Soft, nontender, normoactive bowel sounds. No guarding, no rebound. No masses appreciated. BACK: No CVA tenderness, no spinal tenderness, step-offs or deformities EXTREMITIES: Normal range of motion, no pitting or edema. No clubbing or cyanosis. NEUROLOGICAL: Cranial nerves II through XII grossly intact. Normal speech, normal gait. 5/5 strength, normal movement in all extremities, normal sensation PSYCH: Normal mood, normal affect. SKIN: Warm, dry, normal turgor, no visible rashes or lesions. 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, idiopathinc), hyponatremia, gastric ulcer, cardiac stent in August 2016 and again in February - Family History Significant Family History: No pertinent family hx - Social History Smoking Status: Never smoked Alcohol Use: Sober Drug Use: None Constitutional: Initial Vital Signs Temperature (C) 36.8 C 05/09/17 14:36 Heart Rate 81 05/09/17 14:36 Respiratory Rate 18 05/09/17 14:36 Blood Pressure 151/82 H 05/09/17 14:36 O2 Sat (%) 95 05/09/17 14:36 O2 Delivery Mode Room Air Allergies/Adverse Reactions: No Known Allergies Allergy (Verified 05/09/17 14:36) Home Medications: Medication Instructions Recorded Aspirin EC [Aspirin EC 81 mg (*)] 81 mg PO DAILY 05/09/17 Cholecalciferol Vit D3 [Vitamin D3 1,000 units PO DAILY 05/09/17 (*)] Clopidogrel Bisulfate [Clopidogrel] 75 mg PO DAILY 05/09/17 Herbals/Supplements -Info Only 1 ea PO DAILY 05/09/17 Lisinopril [Zestril 10 mg (*)] 10 mg PO DAILY 05/09/17 Multivitamins [Multivitamin (*)] 1 each PO Q3D 05/09/17 Rosuvastatin Calcium [Crestor 40mg 40 mg PO DAILY 05/09/17 (*)] Medical Decision Making - Diagnostics EKG Interpretation: An EKG obtained and was read and documented in trace view. Please see trace view for full reading and report. Sinus rhythm, no acute ischemic changes, unchanged from previous Imaging Results: Imaging Impressions Chest X-Ray 05/09/17 15:45 Impression: Nothing acute identified. Imaging: Discussed imaging studies w/ call center coordinator Radiologist ED Course/Re-evaluation: For p.m. I discussed the case with Dr. Brittani Lara who will admit to the medical service. The patient is currently asymptomatic. Differential Diagnosis: Partial list of the Differential diagnosis considered include but were not limited to; acute coronary disease, arrhythmia, angina and although unlikely based on the history and physical exam, I also considered DVT, dissection. I discussed these differential diagnoses and the plan with the patient as well as the usual and expected course. The patient understands that the diagnosis is provisional and that in medicine we are not always correct and that further workup is often warranted. Usual and customary warnings were given. All of the patient's questions were answered. The patient was instructed to return to the emergency department should the symptoms at all worsen or return, otherwise to followup with the physician as we discussed. - Data Points Laboratory Results: Laboratory Results 05/09/17 14:53 05/09/17 14:53 05/09/17 05/09/17 14:53 14:53 WBC 6.21 10^3/uL 10^3/uL (3.80-9.50) RBC 5.34 10^6/uL 10^6/uL (4.40-6.38) Hgb 16.0 g/dL g/dL (13.7-17.5) Hct 45.0 % % (40.0-51.0) MCV 84.3 fL fL (81.5-99.8) MCH 30.0 pg pg (27.9-34.1) MCHC 35.6 g/dL g/dL (32.4-36.7) RDW 13.5 % % (11.5-15.2) Plt Count 229 10^3/uL 10^3/uL (150-400) MPV 10.0 fL fL (8.7-11.7) Neut % (Auto) 74.6 % H % (39.3-74.2) Lymph % (Auto) 16.7 % % (15.0-45.0) [place] % (Auto) 6.8 % % (4.5-13.0) Eos % (Auto) 1.1 % % (0.6-7.6) Baso % (Auto) 0.6 % % (0.3-1.7) Nucleat RBC Rel Count 0.0 % % (0.0-0.2) Absolute Neuts (auto) 4.63 10^3/uL 10^3/uL (1.70-6.50) Absolute Lymphs (auto) 1.04 10^3/uL 10^3/uL (1.00-3.00) Absolute Monos (auto) 0.42 10^3/uL 10^3/uL (0.30-0.80) Absolute Eos (auto) 0.07 10^3/uL 10^3/uL (0.03-0.40) Absolute Basos (auto) 0.04 10^3/uL 10^3/uL (0.02-0.10) Absolute Nucleated RBC 0.00 10^3/uL 10^3/uL (0-0.01) Immature Gran % 0.2 % % (0.0-1.1) Immature Gran # 0.01 10^3/uL 10^3/uL (0.00-0.10) Sodium 141 mEq/L mEq/L (134-144) Potassium 3.9 mEq/L mEq/L (3.5-5.2) Chloride 105 mEq/L mEq/L (97-110) Carbon Dioxide 22 mEq/l mEq/l (22-31) Anion Gap 14 mEq/L mEq/L (8-16) BUN 13 mg/dL mg/dL (7-23) Creatinine 0.9 mg/dL mg/dL (0.7-1.3) Estimated GFR > 60 Glucose 137 mg/dL H mg/dL (70-100) Calcium 9.8 mg/dL mg/dL (8.5-10.4) Total Bilirubin 0.8 mg/dL mg/dL (0.1-1.4) AST 38 IU/L IU/L (17-59) ALT 43 IU/L IU/L (21-72) Alkaline Phosphatase 53 IU/L IU/L (38-126) Troponin I < 0.012 ng/mL ng/mL (0.000-0.034) Total Protein 6.6 g/dL g/dL (6.3-8.2) Albumin 4.2 g/dL g/dL (3.5-5.0) Medications Given: Discontinued Medications Nitroglycerin (Nitrostat) 0.4 mg SL ONCE ONE Stop: 05/09/17 17:11 Last Admin: 05/09/17 17:16 Dose: 0.4 mg Departure - Departure Disposition: [facility] Inpatient Acute Clinical Impression: Acute coronary syndrome Condition: Fair
[2017-05-09 15:21] LABS: TROPONIN I < 0.012 ng/mL (0.000-0.034)
[2017-05-09] MEDS ORDERED: NITROGLYCERIN 0.4 MG BTL SL ONE ×2 (17:10→17:16)
[2017-05-09] MEDS ORDERED: ACETAMINOPHEN 325 MG TAB PO PRN (19:16)
[2017-05-09] MEDS ORDERED: ONDANSETRON 4 MG/2 ML VIAL IVP PRN (19:16)
--- NOTE | 2017-05-09 20:15 | GHP ---
[f rep st] HISTORY AND PHYSICAL DATE OF ADMISSION: 05/09/2017 CHIEF COMPLAINT: Chest pain. HISTORY OF PRESENT ILLNESS: The patient is a 71-year-old male with a history of coronary artery dise ase. He had stents in August and then again had to go back to the cathode builder in February and had 2 mor e stents placed. His last stents were drug-eluting stents to OM 1 and OM [address] Justice. He is now presenting with recurrence of chest pain. He had 1 measurer episode last week that resolved s pontaneously. This morning, chest pain started at 9 a.m. He describes as a left-sided pressure, non pleuritic, radiating to the jaw. It was continuous until he received nitroglycerin in the emergency room which relieved the pain completely. PAST MEDICAL HISTORY: 1. Coronary artery disease, status post multiple stents. Last stents in February. 2. Transient global amnesia. 3. Hypertension. 4. Hyperlipidemia. MEDICATIONS: Please see computer record for full detailed list. ALLERGIES: No known drug allergies. SOCIAL HISTORY: No smoking. Occasional alcohol. He lives with his . 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 REVIEW OF SYSTEMS: Complete review of systems obtained. Review of systems negative regarding consti tutional, HEENT, GI, pulmonary, cardiovascular, , hematology, skin, musculoskeletal, endocrine, and psych, except for positives noted as in HPI. FAMILY HISTORY: He has 17 brothers and sisters, although denies significant family history of palafox ry artery disease. PHYSICAL EXAMINATION: GENERAL: Well-developed, well-nourished male, in no acute distress. VITAL SIG NS: Temperature is 36.8, pulse 60, blood pressure 123/77, satting 94% on room air. EYES: Normal con junctivae. Pupils equal, round, reactive to light. ENT: Normal ears and nose. Hearing intact. Nor mal teeth. Oropharynx moist. NECK: Trachea midline. No thyromegaly. CHEST: Normal respiratory e ffort. LUNGS: Clear to auscultation bilaterally. CARDIOVASCULAR SYSTEM: Regular rhythm. No murmu r. No lower extremity edema. ABDOMEN: Soft, nontender. No hepatosplenomegaly. SKIN: Warm, dry, intact. No rash. MUSCULOSKELETAL: No cyanosis or clubbing. Strength is 5/5 upper and lower extrem ities. NEUROLOGIC: Cranial nerves intact. Normal sensation to light touch. PSYCH: Alert and orie nted x3. Normal affect. Normal judgment. Normal memory. LABORATORIES: White count 6.2, hematocrit 45.0, platelets 229. Sodium 141, potassium 3.9, chloride 102.5, bicarb 22, BUN 13, creatinine 0.9, glucose 137. LFTs are negative. Troponin is negative. EKG viewed by me. My personal interpretation is normal sinus rhythm, lateral T-wave flattening. IMAGING: Chest x-ray is negative. Medical records reviewed. I reviewed old medical records including previous cardiac catheterization report from February with Dr. Justice, which summary is drug-eluting stents to OM 1 and OM 2. ASSESSMENT/PLAN: 1. Chest pain. He has a history of coronary artery disease and multiple stents in the past, very re cently having stents in February. We will follow serial troponins and EKGs. We will continue his a spirin and Plavix and statin drug. We will order exercise thallium scan for the morning. 2. Hypertension. Continue lisinopril. CODE STATUS: Full. ADMISSION STATUS: Will admit to observation as he can probably go home tomorrow if his stress test i s negative. DEEP VENOUS THROMBOSIS PROPHYLAXIS: He is low risk. /[id number]/MODL
[2017-05-10] MEDS ORDERED: ASPIRIN EC 81 MG TAB PO SCH (09:00)
[2017-05-10] MEDS ORDERED: LISINOPRIL 10 MG TAB PO SCH (09:00)
[2017-05-10] MEDS ORDERED: ROSUVASTATIN CALCIUM 40 MG TAB PO SCH (09:00)
[2017-05-10] MEDS ORDERED: CLOPIDOGREL BISULFATE 75 MG TAB PO SCH (09:00)
--- NOTE | 2017-05-10 09:36 | ASMTCMCOM ---
CM Note CM Note Notes: 05/10/2017 Case Management Note Reviewed chart. No case management d/c needs identified d/t pt age, marital status and activity levels prior to admission. There are no PT or OT evals ordered at this time. Case Management d/c poc: home independent with follow up as directed when medically stable. Case Management available if needs change. Date Signed: 05/10/2017 09:35 AM Electronically Signed By:Rea Lazo RN
[2017-05-10 11:33] VITALS: BP 109/76; PULSE 79; RESP 16; TEMP 98.4; O2SAT 92
--- NOTE | 2017-05-10 12:39 | CPR ---
[f rep st] NONINVASIVE CARDIAC PROCEDURE REPORT PROCEDURE: Nuclear treadmill stress test REASON FOR TEST: 1. Chest pain. 2. Known coronary artery disease with stents. RESTING: EKG shows a regular sinus rhythm with a ventricular rate of 80, resting blood pressure 116/ 78, and he is asymptomatic. STRESS PORTION: He was exercised according to the Hayder protocol for a total of 8 minutes and 31 sec onds. He reached a MET level of 9.6, heart rate peaked at 141, which was 90% maximal. There were no EKG changes. He remained asymptomatic. RECOVERY: He did spontaneously recover with no ischemic changes, no arrhythmias. Recovery blood pre ssure 124/74, recovery heart rate 103. He remained asymptomatic throughout testing. At this time, rex nixon currently is stable for nuclear imaging. /[id number]/MODL
--- NOTE | 2017-05-10 14:03 | GDS ---
[f rep st] DISCHARGE SUMMARY DISCHARGE DIAGNOSES: 1. Chest pain. 2. Coronary artery disease status post 3 stents last in February. 3. Transient global amnesia. 4. Hypertension. 5. Hyperlipidemia. 6. GERD HISTORY OF PRESENT ILLNESS: A 71-year-old male with history of coronary artery disease with stents placed in August and then again in February of 2017, which he had 2 more stents placed in the OM1 and OM2 by Dr. Justice. He is now presenting with recurrence of chest pain that started in the morning of admission at 9 a.m., left-sided, nonpleuritic. He had a mild radiation to the jaw. The pain was continuous until he received nitroglycerin in the ER. He is currently chest pain free. He was unclear if it was his previous GERD, which he previously had felt GERD-like symptoms in his neck. He exercises daily at least for an hour with his walking and does not have chest pain or shortness of breath with that nor with lifting weights. HOSPITAL COURSE BY PROBLEM: 1. Chest pain. Given history of coronary artery disease, he underwent a nuclear perfusion scan that was negative for ischemia. Recommend medical management. Continue with aspirin, statin, and Plavix, and p.r.n. nitroglycerin. He should follow up with Dr. Justice. 2. Hypertension. Resume lisinopril. 3. GERD. I gave him lifestyle changes including diet, as well as elevating in bed at night. DISPOSITION: Patient stable for discharge. MEDICATIONS: No new medications. FOLLOWUP: PHYSICAL EXAM: VITAL SIGNS: Today, temperature 36.9 blood pressure 109/76, heart rate 80s, RR14, 92% on room air. GENERAL: Well appearing, no acute distress. HEENT: PERRLA. EOMI. Oropharynx clear. CV: Regular rate and rhythm. No chest tenderness with palpation. No edema. LUNGS: Clear to auscultation. ABDOMEN: Soft, nontender, nondistended. : No [place]. MUSCULOSKELETAL: 5/5 upper and lower extremity strength. NEURO: 2 through 12 intact. PSYCH: Alert and oriented x3. /[id number]/MODL MTDD
--- NOTE | 2017-05-10 16:50 | ASDISCHSUM ---
Discharge Information Plan Status:Home with No Needs Medically Cleared to Leave:05/09/2017 Discharge Date:05/10/2017 02:10 PM CM D/C Disposition:Home, Routine, Self-Care ADT D/C Disposition:Home, Routine, Self-Care Projected Discharge Date:05/10/2017 12:00 AM Transportation at D/C:Family Discharge Delay Reason: Follow-Up Date:05/10/2017 12:00 AM Discharge Slot: Final Diagnosis: Placement Information Patient Contact Information Contact Name:EMANUEL Relationship: Address:[address] Phone: City:[place] Alternate Phone: [facility]/Zip Code:[place] [address] Email: Financial Information Financial Class: Primary Plan Desc:MEDICARE OUTPATIENT Primary Plan Number:[id number] Secondary Plan Desc: Secondary Plan Number: Assessment Information LACE LACE Acuity / Level of Care Answers: Was the patient admitted to hospital via the emergency department? Yes: Comorbidities - select Answers: Previous myocardial all that apply infarction Emergency dept visits in Answers: 1 last 6 months Score: 5 Date Signed: 05/09/2017 05:57 PM Electronically Signed By:Camelia Angeles RN [facility] CM Progress Note CM Note CM Note Notes: 05/10/2017 Case Management Note Reviewed chart. No case management d/c needs identified d/t pt age, marital status and activity levels prior to admission. There are no PT or OT evals ordered at this time. Case Management d/c poc: home independent with follow up as directed when medically stable. Case Management available if needs change. Date Signed: 05/10/2017 09:35 AM Electronically Signed By:Rea Lazo RN Intervention Information
== END 2017-05-10 14:10 | disposition home or self-care (01) ==
LOC: F2W 17:56
PROVIDERS: ADMIT Internal Medicine; ATTEND Internal Medicine
DX: R07.89 Other chest pain (principal); I25.10 Atherosclerotic heart disease of native coronary artery without angina pectoris; G45.4 Transient global amnesia; I10 Essential (primary) hypertension; E78.5 Hyperlipidemia, unspecified; K21.9 Gastro-esophageal reflux disease without esophagitis; Z95.5 Presence of coronary angioplasty implant and graft
CPT/HCPCS: 71020; 78452; 93005; 93017; A9500; G0378

== ENCOUNTER → 2017-12-17 | Outpatient (CLI) | payer OTHER | LOC: FLAB 10:21 | PROVIDERS: ATTEND Internal Medicine | DX: S22.31XA Fracture of one rib, right side, initial encounter for closed fracture (principal); W10.8XXA Fall (on) (from) other stairs and steps, initial encounter ==

== ENCOUNTER 2018-03-03 09:52 | Inpatient (IN) | payer OTHER ==
--- NOTE | 2018-03-03 10:02 | EDPHY ---
H & P Stated Complaint: CP Time Seen by Provider: 03/03/18 10:02 HPI/ROS: CHIEF COMPLAINT: Chest pain HISTORY OF PRESENT ILLNESS: The patient has a history of coronary artery disease status post stent x3. Last intervention was 1 year ago. Patient recently stop Plavix. He presents to the ED with several days of intermittent chest pain, back pain and pain in his left biceps. He reports the symptoms are milder than his prior angina however consistent with it. Patient denies any pleuritic chest pain. He denies any asymmetric calf pain or swelling. The patient denies fever, cough or congestion. REVIEW OF SYSTEMS: A comprehensive 10 point review of systems is otherwise negative aside from elements mentioned in the history of present illness. 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, idiopathinc), hyponatremia, gastric ulcer, cardiac stent in August 2016 and again in February - Social History Smoking Status: Never smoked - Physical Exam Exam: General Appearance: Alert, no distress Eyes: Pupils equal and round no pallor or injection ENT, Mouth: Mucous membranes moist Respiratory: There are no retractions, lungs are clear to auscultation Cardiovascular: Regular rate and rhythm Gastrointestinal: Abdomen is soft and nontender, no masses, bowel sounds normal Neurological: A&O, normal motor function, normal sensory exam, normal cranial nerves Skin: Warm and dry, no rashes Musculoskeletal: Neck is supple nontender Extremities: symmetrical, full range of motion Constitutional: Initial Vital Signs Temperature (C) 36.7 C 03/03/18 09:55 Heart Rate 75 03/03/18 09:55 Respiratory Rate 18 03/03/18 09:55 Blood Pressure 137/90 H 03/03/18 09:55 O2 Sat (%) 94 03/03/18 09:55 O2 Delivery Mode Room Air Allergies/Adverse Reactions: No Known Allergies Allergy (Verified 03/03/18 09:57) Home Medications: Medication Instructions Recorded Aspirin EC [Aspirin EC 81 mg (*)] 81 mg PO DAILY 05/09/17 Cholecalciferol Vit D3 [Vitamin D3 1,000 units PO DAILY 05/09/17 (*)] Herbals/Supplements -Info Only 1 ea PO DAILY 05/09/17 Lisinopril [Zestril 10 mg (*)] 10 mg PO DAILY 05/09/17 Multivitamins [Multivitamin (*)] 1 each PO Q3D 05/09/17 Rosuvastatin Calcium [Crestor 40mg 40 mg PO DAILY 05/09/17 (*)] Medical Decision Making - Diagnostics EKG Interpretation: EKG: Complete interpretation has been separately recorded in the [employer] archive. Summary impression: Sinus rhythm, rate 64 Imaging Results: Imaging Impressions Chest X-Ray 03/03/18 10:13 Impression: Nothing acute identified. No pneumonia. A posterior right ninth rib fracture is healing. ED Course/Re-evaluation: The patient presents to the ED with intermittent chest pain, back pain and arm pain for the past 2 days. The patient's initial EKG demonstrates no evidence of ischemia. The patient's troponin is 2x normal. Given the patient's age and risk factors his HEART score is 6. He will be admitted to the hospital for further evaluation and management. The patient is admitting to Dr. Cuca Burk from the hospitalist service for further workup and management. Re-evaluated the patient at 11:20 a.m. He continues to be chest pain free. I reviewed the results of his laboratory testing and plan for admission. Differential Diagnosis: Differential diagnosis considered includes acute coronary syndrome, myocardial infarction, esophageal spasm, pericarditis - Data Points Laboratory Results: Laboratory Results 03/03/18 10:25 03/03/18 10:25 03/03/18 03/03/18 03/03/18 10:26 10:25 10:25 WBC REJ RBC REJ Hgb REJ Hct REJ MCV REJ MCH REJ MCHC REJ RDW REJ Plt Count REJ MPV REJ Neut % (Auto) REJ Lymph % (Auto) REJ [place] % (Auto) REJ Eos % (Auto) REJ Baso % (Auto) REJ Nucleat RBC Rel Count REJ Absolute Neuts (auto) REJ Absolute Lymphs (auto) REJ Absolute Monos (auto) REJ Absolute Eos (auto) REJ Absolute Basos (auto) REJ Absolute Nucleated RBC REJ Immature Gran % REJ Immature Gran # REJ Sodium 139 mEq/L mEq/L (135-145) Potassium 4.5 mEq/L mEq/L (3.3-5.0) Chloride 105 mEq/L mEq/L (97-110) Carbon Dioxide 24 mEq/l mEq/l (22-31) Anion Gap 10 mEq/L mEq/L (8-16) BUN 12 mg/dL mg/dL (7-23) Creatinine 0.7 mg/dL mg/dL (0.7-1.3) Estimated GFR > 60 Glucose 136 mg/dL H mg/dL (70-100) Calcium 9.9 mg/dL mg/dL (8.5-10.4) POC Troponin I 0.14 ng/mL H ng/mL (0.00-0.08) Point of Care Test Results: Chemistry 03/03/18 10:26 POC Troponin I 0.14 ng/mL H ng/mL (0.00-0.08) Departure - Departure Disposition: [facility] Inpatient Acute Clinical Impression: Chest pain Condition: Fair
--- NOTE | 2018-03-03 10:15 | CPEKG ---
Test Reason : OPEN Blood Pressure : / mmHG Vent. Rate : 064 BPM Atrial Rate : 064 BPM P-R Int : 168 ms QRS Dur : 094 ms QT Int : 377 ms P-R-T Axes : 034 028 084 degrees QTc Int : 389 ms Sinus rhythm Confirmed by Kavon De La Torre ([id number]) on 03/03/2018 10:14:55 AM Referred By: Confirmed By:Kavon De La Torre
[2018-03-03 12:17] LABS: PLATELET COUNT 242 10^3/uL (150-400)
[2018-03-03] MEDS ORDERED: NITROGLYCERIN 0.4 MG BTL SL PRN (13:17)
--- NOTE | 2018-03-03 14:45 | GHP ---
DATE OF ADMISSION: 03/03/2018 CHIEF COMPLAINT: Chest pain. HISTORY OF PRESENT ILLNESS: The patient is a 72-year-old man with a history significant for coronary artery disease. He was admitted about a year ago with similar symptoms of chest pain, had an abnorm al nuclear stress test, and had an angiogram and 2 stents placed. He has done quite well over the year. 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 Saturday, he did his usual workout and felt good. Saturday afternoon. He started feeling bad. Thi s is fairly nonspecific symptoms, although Saturday and Saturday, he started getting lightheaded and na useous and started feeling some heaviness in his chest radiating to his back. The symptoms would com e and go throughout the day, getting more severe at times, and other times, he would feel better. He states it does feel very similar to his anginal pain he had prior to his stent placement a year ago. He was able to walk both Saturday and Saturday a.m. and had minimal symptoms during the walk; however , throughout the rest of the day, had intermittent chest pain, more fatigue than usual, and just not feeling bad. Early this morning, he woke up with more chest pain about 2 a.m. Blood pressure was fi ne. He was able to go back to sleep. However, this morning when he woke up, he again had chest pres sure with tingling in his shoulder, so opted to come into the emergency room for further evaluation a nd treatment. He does admit that he is under little bit of stress. He learned on that his brother in [place] was in the hospital with prostate cancer. Other than that, there have been no othe r significant lifestyle changes. REVIEW OF SYSTEMS: A comprehensive review of systems was done with pertinent positives present in . PAST MEDICAL HISTORY: 1. Coronary artery disease, status post 2 stents last year, followed by Dr. Ruby. 2. Hypertension. 3. Dyslipidemia. 4. Insulin resistance with elevated A1c. FAMILY HISTORY: Prostate cancer in his brother, heart attacks in his father in his 70s. SOCIAL HISTORY: He is . He has 4 children. He occasionally drinks alcohol. Does not smoke. CURRENT MEDICATIONS: Include Crestor, lisinopril, Nitrostat, aspirin. He recently stopped his Plavi x. Please see medication reconciliation for full details. ALLERGIES: To metoprolol, which causes a rash. PHYSICAL EXAMINATION: VITAL SIGNS: He has been afebrile. Heart rate 53, blood pressure 135/80, res pirations. He is 98% on room air. GENERAL: He is a very healthy-appearing 72-year-old. He is in n o distress. He is alert and oriented. HEENT: Pupils equal. Extraocular movements intact. Mucous membranes moist. Oropharynx clear. NECK: Supple. No adenopathy. HEART: Regular rate and rhythm. No murmur, gallop, or rub. LUNGS: Clear bilaterally without wheeze, rhonchi, or rales. ABDOMEN: Soft, nontender, nondistended. EXTREMITIES: No clubbing, cyanosis, or edema. NEUROLOGIC: Speech is fluent. He is alert and oriented. Moves all 4 extremities. MUSCULOSKELETAL: No joint deformiti es or effusions. SKIN: Intact. PSYCHIATRIC: Normal mood and affect. DIAGNOSTIC DATA: Chest x-ray shows nothing acute. EKG shows normal sinus rhythm, no obvious ischemia. CBCs within normal limits. Chemistry shows normal electrolytes and renal function. Initial troponin POC was 0.14, followup was undetectable. ASSESSMENT/PLAN: 1. 72-year-old presents with intermittent chest pain over the last 2 days similar to his previous an ari a year ago. Normal EKG. Indeterminate troponin on admission. He is currently pain free. Give n his intermittent symptoms, I have elected to consult Cardiology to determine the best risk stratifi cation in this man given his ongoing angina and chest pain, whether doing a nuclear stress test or pr oceeding to an angiogram. The patient is in agreement with this plan. 2. Hypertension, currently well controlled. Continue his medications. 3. Dyslipidemia, on Crestor. 4. Insulin resistant with elevated glucose. We will go ahead and check an A1c to see what kind of r isk for diabetes he is. /[id number]/MODL
--- NOTE | 2018-03-03 17:45 | GCON ---
DATE OF CONSULTATION: 03/03/2018 REFERRING PHYSICIAN: Cuca Burk MD CHIEF COMPLAINT: We have been asked by Dr. Burk to evaluate the patient with a chief complaint of ch est pain. HISTORY OF PRESENT ILLNESS: The patient is a 72-year-old gentleman with known coronary artery diseas e who presents with a chief complaint of chest pain. Patient was in his usual state of health until approximately 3 days prior to admission, when he began to experience symptoms of chest pain. The sadiq st pain is described as a pressure in the center of his chest without radiation. The chest pain is n ot associated with symptoms of nausea, vomiting, or diaphoresis. The patient states the chest pain i s similar in character to his previous anginal-type symptoms; however, patient denies symptoms of sadiq st pain with exertion. Patient does have a previous history of coronary artery disease. He underwen t stenting of his diagonal artery in August of 2016, and his circumflex coronary artery in February. Patient was admitted to the hospital in May of 2017, with symptoms of chest pain and root d a nuclear stress test performed demonstrating no evidence of ischemia. Of note, patient recently s topped Plavix as he was more than 1 year out from his last stenting procedure. Patient has been taki ng his other medications. PAST MEDICAL HISTORY: 1. Coronary artery disease. 2. Hypertension. 3. Hyperlipidemia. 4. Insulin resistance. MEDICATIONS: Please see medicine reconciliation form. FAMILY HISTORY: Notable for prostate cancer in his brother and coronary artery disease in his father at a later age of onset. SOCIAL HISTORY: Patient does not smoke. He denies problems with alcohol. REVIEW OF SYSTEMS: 10-point review of systems is negative, except as noted in HPI. The patient does also report a recent onset of fatigue type symptoms. ALLERGIES: Metoprolol. PHYSICAL EXAMINATION: GENERAL: The patient is resting comfortably in bed. He does not appear to be in acute distress. VITAL SIGNS: Temperature is afebrile. Blood pressure 135/80, respiratory rate is 16, SaO2 is 96% on room air. HEENT: Normocephalic, atraumatic. Extraocular muscles intact. NEC K: No JVD. No bruits. LUNGS: Clear to auscultation bilaterally. CARDIOVASCULAR: Regular rate an d rhythm. S1, S2. No murmurs, rubs, or gallops appreciated. ABDOMEN: Soft, nontender. No hepatos plenomegaly. Could not adequately palpate aorta for sizing. EXTREMITIES: No clubbing, cyanosis, or edema. NEURO: Patient is awake, alert, and oriented x3. SKIN: No evidence of rashes. LABORATORY/IMAGING: White blood cell count 5.80, hemoglobin is 15.4, hematocrit is 45.2, platelet co unt 242. Sodium 139, potassium 4.5, chloride 105, CO2 24, BUN 12, creatinine 0.7. Gmzyq-xe-edbv tro ponin is mildly elevated at 0.14. Laboratory troponin is within normal limits. EKG demonstrates no acute ST or T-wave changes. ASSESSMENT/PLAN: The patient is a 72-year-old gentleman with return: 1. Chest pain. Patient presents with symptoms of chest pain. The chest pain is similar to his prev ious angina in character, but is different in that it is not precipitated by exertion or relieved wit h rest. His EKG demonstrates no acute ST or T-wave changes. His vycil-wf-txpg troponin is mildly el evated. His standard troponin is within normal limits. Reviewed options for risk stratification wit h the patient and his , including cardiac catheterization, as well as subsequent stress testing. Patient wishes to pursue cardiac catheterization. We will arrange to have this performed in the [facility]. At this time, will resume Plavix therapy until his coronary anatomy is further clarified. 2. Hypertension. Blood pressure is well controlled. Will continue current medicines. 3. Hyperlipidemia. Will obtain FLP and LFTs to evaluate therapy. /[id number]/MODL
[2018-03-04] MEDS ORDERED: ASPIRIN EC 325 MG TAB PO ONE ×2 (06:14→07:29)
[2018-03-04] MEDS ORDERED: FAMOTIDINE 20 MG TAB PO ONE (06:14)
[2018-03-04] MEDS ORDERED: diphenhydrAMINE 25 MG CAP PO ONE ×2 (06:14→07:29)
[2018-03-04] MEDS ORDERED: DIAZEPAM 5 MG TAB PO ONE (06:14)
[2018-03-04] MEDS ORDERED: NS 1,000 ML IV ONE (06:14)
[2018-03-04 06:45] LABS: PLATELET COUNT 194 10^3/uL (150-400)
[2018-03-04 06:52] LABS: INR 1.05 (0.83-1.16); PROTIME(PATIENT) 13.9 SEC (12.0-15.0)
[2018-03-04] MEDS ORDERED: FAMOTIDINE 20 MG TAB ONE (07:29)
[2018-03-04] MEDS ORDERED: DIAZEPAM 5 MG TAB ONE (07:29)
[2018-03-04] MEDS: LISINOPRIL 10 MG TAB PO SCH (07:40)
[2018-03-04] MEDS ORDERED: MIDAZOLAM 2 MG/2 ML VIAL ONE (08:01)
[2018-03-04] MEDS ORDERED: IOPAMIDOL (ISOVUE-370) 150 ML BTL IV ONE (08:01)
[2018-03-04] MEDS ORDERED: LIDOCAINE 1% 300 MG/30 ML SDV ONE (08:01)
[2018-03-04] MEDS ORDERED: fentaNYL 100 MCG/2 ML INJ ONE (08:01)
--- NOTE | 2018-03-04 08:01 | PDPROPOC ---
Sedation Plan of Care Sedation Plan of Care: vital signs stable, mental status noted, patient educated of risks, benefits, alternatives, patient can tolerate sedation ASA Classification: ASA 2 Planned drugs: fentanyl, midazolam Mallampati Score: Class 2 Mallampati Reference Image: Patient passed 3-3-2 rule?: Yes
[2018-03-04] MEDS ORDERED: CLOPIDOGREL BISULFATE 75 MG TAB PO SCH (09:00)
--- NOTE | 2018-03-04 09:33 | CPIP ---
DATE OF PROCEDURE: 03/04/2018 OPERATION PERFORMED: 1. Coronary angiography. 2. Left ventriculography. INDICATION: 1. Known coronary artery disease, status post stenting of the diagonal artery, obtuse marginal 1 cor onary artery, and obtuse marginal 2 coronary artery. 2. Acute coronary syndrome. ACCESS: Patient was prepped and draped in sterile fashion. 1% lidocaine was used to anesthetize the right inguinal region. A 6-[place] introducer sheath was placed selectively into the right common fe moral artery via modified Seldinger technique. CORONARY ANGIOGRAPHY: A 6-[place] JL4 was advanced to the left main coronary artery and images obtain ed. The left main coronary artery bifurcated into an LAD and circumflex coronary arteries. The left main coronary artery appeared normal. The left anterior descending coronary artery is diffusely dis eased. In the proximal segment of the left anterior descending coronary artery, there is a discreet 75% stenosis present involving the takeoff of the 1st diagonal artery. The 1st diagonal artery had a n ostial 70% stenosis present. The 2nd diagonal artery was previously stented. The previously place d stent had mild in-stent restenosis. There was no evidence of flow limitation. The circumflex shira nary artery was a large vessel that was nondominant. The circumflex coronary artery was diffusely di seased throughout the vessel with segmental 30% stenosis present. The OM1 coronary artery was previo usly stented in the ostial and proximal segment. The OM1 stent had an ostial 80% in-stent restenosis . The OM2 coronary artery was also stented in the ostial and proximal segment. The OM2 coronary art rayray had a 50% ISR of the ostial segment. The 6-[place] JR4 was advanced to the right coronary artery and images obtained. The right coronary artery was dominant. The right coronary artery was diffusel y diseased. In the mid vessel, there was a long segmental 40% to 50% stenosis present. LEFT VENTRICULOGRAPHY: A 6-[place] pigtail catheter was advanced in the left ventricle and images obt ained. Left ventricle was normal in size, had normal systolic function. Estimated ejection fraction was 65%. COMPLICATIONS: None. CONCLUSIONS: 1. Two-vessel coronary artery disease with evidence of in-stent restenosis involving a complex bifur cation lesion in the circumflex coronary artery. 2. Normal left ventricular size and systolic function. 3. Plan is for surgical evaluation. /[id number]/MODL
[2018-03-04] MEDS ORDERED: ATROPINE SULFATE 1 MG/10 ML SYR IVP PRN (10:48)
[2018-03-04] MEDS ORDERED: ONDANSETRON 4 MG/2 ML VIAL IVP PRN (10:48)
--- NOTE | 2018-03-04 11:56 | ECHO ---
[email or web address] [address] [address] Main: [phone] Fax: [email or web address] Echocardiogram Name: RAFAEL MORENO MR#: [id number] Study Date: 03/04/2018 Study Time: 10:48 AM Date of : 1945 Age: 72 year(s) Height: 175.3 cm (69 in.) Weight: 75.3 kg (166 lb.) BSA: 1.91 m2 Gender: Male Examination: Echo Indication: pre CABG, murmur; eval valves Image Quality: Technically Difficult Contrast: Requested by: Catia Bernard BP: 103 mmHg/67 mmHg Heart Rate: Rhythm: Indication: pre CABG, murmur; eval valves Procedure Staff Stick Puller: Stacia Nixon [facility] Reading Physician: Donnie Donis MD Requesting Provider: Conclusions: Normal size left ventricle. Normal global systolic LV function. EF is 64 %. The mitral valve is normal in appearance and function. Trivial mitral valve regurgitation. The aortic valve is tri-leaflet. Normal size ascending aorta measuring 3.1 cm. No old studies for comparison. Measurements: Chambers Valvular Assessment AV/MV Valvular Assessment TV/PV Normal Normal Normal Name Value Range Name Value Range Name Value Range Ao Jenny (MM): 3.4 cm (2.2 cm-3.7 AV Vmax: 0.99 m/s (1 m/s-1.7 PV Vmax: 0.73 m/s (0.6 m/s-0.9 cm) m/s) m/s) IVSd (2D): 1.0 cm (0.6 cm-1.1 AV maxP mmHg ( - ) PV PGmax: 2 mmHg ( - ) cm) LVOT Vmax: 0.69 m/s (0.7 m/s-1.1 LVDd (2D): 4.0 cm (4.2 cm-5.9 m/s) cm) FATIMAH (Vmax): 2.0 cm2 ( - ) LVDs (2D): 2.6 cm (2.1 cm-4 MV E Vmax: 0.37 m/s ( - ) cm) MV A Vmax: 0.44 m/s ( - ) LVPWd (2D): 0.9 cm (0.6 cm-1 MV E/A: 0.84 ( - ) cm) LVOTd 1.9 cm 1.9 cm mm LVEF (2D): 64 (>=54 %) Continued Measurements: Chambers Valvular Assessment AV/MV Name Value Name Value Patient: RAFAEL MORENO Study Date: 03/04/2018 Page 1 of 2 10:48 AM LADs Lon.8 cm MV DecTime: 229 m/s LA Area: 18.3 cm2 LA Volume: 44 ml LA Volume Index: 23.0 ml/m2 Additional Vessels Name Value Ao Ascendin.1 cm Findings: Left Ventricle: Normal size left ventricle. No LV hypertrophy. Normal global systolic LV function. EF is 64 %. No regional wall motion abnormality. Right Ventricle: Grossly normal RV size and function.. Left Atrium: The left atrium is normal in size. Right Atrium: The right atrium is normal in size. Mitral Valve: The mitral valve is normal in appearance and function. Trivial mitral valve regurgitation. No mitral stenosis is present. Aortic Valve: The aortic valve is tri-leaflet. There is no aortic valve regurgitation. No aortic valve stenosis is present. Tricuspid Valve: Tricuspid valve not well visualized. Trivial tricuspid valve regurgitation. Pulmonary artery pressure is not obtained due to inadequate TR jet. Pulmonic Valve: Pulmonary valve not well visualized. Aorta: Normal size aortic root measuring 3.4 cm. Normal size ascending aorta measuring 3.1 cm. IVC: The IVC is not well visualized. Pericardium: No pericardial effusion. (No Signature Object) Patient: RAFAEL MORENO Study Date: 03/04/2018 Page 2 of 2 10:48 AM [id number]
[2018-03-04] MEDS: ASPIRIN EC 81 MG TAB PO SCH (12:20)
--- NOTE | 2018-03-04 12:44 | SOAPPROG ---
[facility] Progress Note Assessment/Plan: 1. ACS - patient presented with symptoms of chest pain consistent with his previous angina. EKG demonstrated no acute ST or T-wave changes. Point of care troponin was mildly elevated, however, lab troponins were within normal limits. Patient underwent cardiac catheterization for risk stratification. Coronary angiography demonstrated significant InStent restenoses of the previously placed circumflex stents as well as high-grade disease involving the proximal left anterior descending coronary artery and 1st diagonal artery. Patient will be evaluated by CT surgery for bypass grafting surgery. Continue aspirin, lisinopril, and rosuvastatin. 2. HTN - well controlled. Continue current therapy. 3. Hyperlipidemia - patient is a goal. Continue current therapy. Subjective: No further episodes of chest pain See angiogram results Objective: Vital Signs Temp Pulse Resp BP Pulse Ox 36.7 C 53 L 12 113/77 92 03/04/18 11:37 03/04/18 11:37 03/04/18 11:37 03/04/18 11:37 03/04/18 11:37 Laboratory Results 03/04/18 06:40 03/04/18 06:40 03/03/18 03/04/18 03/05/18 05:59 05:59 05:59 Intake Total 1420 500 Balance 1420 500 PT 13.9 SEC (12.0-15.0) 03/04/18 06:40 INR 1.05 (0.83-1.16) 03/04/18 06:40 Physical Exam - Physical Exam General Appearance: alert, no apparent distress Respiratory: lungs clear Cardiac/Chest: regular rate, rhythm Extremities: No pedal edema Neuro/Psych: oriented x 3 ICD10 Worksheet Patient Problems: Problems Problem Status Onset Chest pain Acute Abnormal EKG Acute Acute chest pain Acute Acute coronary syndrome Acute Transient global amnesia Acute chronic disease mgmt/ Transitional Care Acute
--- NOTE | 2018-03-04 14:41 | ASMTCMCOM ---
CM Note CM Note Notes: 03/04/2018 Case Management Note Met w/pt and Sunni [phone]. Pt has daughter and son in law in [place] for support. Pt recently d/c from [facility] on 05/10/[address] Cuca Burk is PCP. There are no case management d/c needs identified d/t pt age, marital status, and independence in ADL's prior to admission. There are no therapy evals ordered at this time. Case Management d/c poc: anticipating independent with follow up as directed. Case Management available if needs change. Date Signed: 03/04/2018 02:40 PM Electronically Signed By:Rea Lazo RN
[2018-03-04] MEDS: ROSUVASTATIN CALCIUM 40 MG TAB PO SCH (16:03)
[2018-03-04] MEDS: CHOLECALCIFEROL VIT D3 1,000 UNITS TAB PO SCH (16:04)
--- NOTE | 2018-03-04 16:55 | HOSPPROG ---
Hospitalist Progress Note Assessment/Plan: 72 yo admitted with chest pain. Underwent angiogram which revealed multivessel disease and he is being referred for a CABG. # CAD: multivessel, disease. * discussed with cardiology who consulted CTS * Plan for surgery on . * Pt is currently pain free # HTN: currently well controlled. # Pre-diabetes, discussed with patient. No medications recommended, may need insulin SS jonah/post op. Will follow up as outpatient. Pt will need additional midnight stay for treatment of severe CAD and need for CABG Subjective: comfortable, no chest pain Objective: Vital Signs Temp Pulse Resp BP Pulse Ox 36.6 C 59 L 15 98/72 L 95 03/04/18 14:13 03/04/18 14:13 03/04/18 14:13 03/04/18 14:13 03/04/18 14:13 Laboratory Results 03/04/18 06:40 03/04/18 06:40 03/03/18 03/04/18 03/05/18 05:59 05:59 05:59 Intake Total 1420 500 Balance 1420 500 PT 13.9 SEC (12.0-15.0) 03/04/18 06:40 INR 1.05 (0.83-1.16) 03/04/18 06:40 - Physical Exam Constitutional: no apparent distress Respiratory: no respiratory distress Neurologic: AAOx3 Psychiatric: interacting appropriately, not anxious ICD10 Worksheet Patient Problems: Problems Problem Status Onset Chest pain Acute Abnormal EKG Acute Acute chest pain Acute Acute coronary syndrome Acute Transient global amnesia Acute chronic disease mgmt/ Transitional Care Acute
--- NOTE | 2018-03-05 07:14 | GCON ---
DATE OF CONSULTATION: 03/04/2018 REASON FOR CONSULTATION: Unstable angina and triple vessel coronary artery disease. The patient is a 72-year-old male who has been having chest pain since Neil on and off. The pain i s described as pressure over the center of his chest and did not radiate any place. It was not assoc iated with nausea, vomiting, or shortness of breath. The patient does have a history of coronary art rayray disease and has had similar pain in the past. He had cardiac catheterization earlier today. PAST MEDICAL HISTORY: Coronary artery disease, hypertension, hyperlipidemia, insulin resistance. PAST SURGICAL HISTORY: None. MEDICATIONS: Reviewed in the electronic medical records. SOCIAL HISTORY: Denies any tobacco use, drinks alcohol occasionally. FAMILY HISTORY: Father had heart disease. REVIEW OF SYSTEMS: Ten point review of systems is remarkable as noted above, otherwise negative. ALLERGIES: Metoprolol. EXAMINATION: GENERAL: The patient alert, oriented in time, place, and person. VITAL SIGNS: Blood pressure 98/72, pulse 59, room air saturation 95%, temperature 36.6. HEENT: Head is normocephalic, atraumatic. There is no icterus. NECK: Supple. No JVD, thyromegaly, or lymphadenopathy. LUNGS: Clear to auscultation bilaterally. HEART: Regular rate and rhythm, S1, S2. ABDOMEN: Soft, nontend er, nondistended. No palpable masses. EXTREMITIES: No cyanosis, clubbing, or edema. NEURO: Gross ly intact. SKIN: Unremarkable. [QAMARKER]: Unremarkable. Cardiac catheterization, which I reviewed personally shows 70% stenosis involving the left anterior d escending artery and the ostium of first diagonal artery. Seventy percent stenosis involving the ost ium of the first oblique marginal artery. The right coronary artery has about 40% to 50% stenosis. Echocardiogram shows preserved ventricular function. No significant valvular heart disease. ASSESSMENT AND PLAN: A 72-year-old male with history of coronary artery disease with unstable angina and 2-vessel coronary artery disease. I discussed with the patient the natural history of the dise ase and the management options. I explained to him the risks, benefits, and alternatives to coronary artery bypass grafting, and he has elected to proceed. The surgery will be performed by Dr. Mis monique, who is my partner. The patient understands and consents. /[id number]/MODL
[2018-03-05] MEDS: ROSUVASTATIN CALCIUM 40 MG TAB PO SCH (08:00)
[2018-03-05] MEDS: LISINOPRIL 10 MG TAB PO SCH (08:00)
[2018-03-05] MEDS: ASPIRIN EC 81 MG TAB PO SCH (08:00)
[2018-03-05] MEDS: CHOLECALCIFEROL VIT D3 1,000 UNITS TAB PO SCH (08:00)
[2018-03-05] MEDS ORDERED: TEMAZEPAM 15 MG CAP PO PRN (10:10)
--- NOTE | 2018-03-05 10:18 | SOAPPROG ---
[facility]ACH[facility] Progress Note Assessment/Plan: 1. ACS - patient presented with symptoms of chest pain consistent with his previous angina. EKG demonstrated no acute ST or T-wave changes. Point of care troponin was mildly elevated, however, lab troponins were within normal limits. Patient underwent cardiac catheterization for risk stratification. Coronary angiography demonstrated significant InStent restenoses of the previously placed circumflex stents as well as high-grade disease involving the proximal left anterior descending coronary artery and 1st diagonal artery. Patient was evaluated by surgery and CABG is planned for 03/06. Greater than 50 % of this 15 min visit was spent answering questions regarding his CAD, treatment strategies, and what to expect with surgery. Continue aspirin, lisinopril, and rosuvastatin. 2. HTN - well controlled. Continue current therapy. 3. Hyperlipidemia - patient is a goal. Continue current therapy. Subjective: No chest pain No orthopnea or PND No inguinal tenderness + constipation Objective: Vital Signs Temp Pulse Resp BP Pulse Ox 36.6 C 60 18 119/72 94 03/05/18 08:00 03/05/18 08:00 03/05/18 08:00 03/05/18 08:00 03/05/18 08:00 PT 13.9 SEC (12.0-15.0) 03/04/18 06:40 INR 1.05 (0.83-1.16) 03/04/18 06:40 Physical Exam - Physical Exam General Appearance: alert, no apparent distress Respiratory: lungs clear Cardiac/Chest: regular rate, rhythm Extremities: other (No hematoma or echymosis.) Neuro/Psych: alert, oriented x 3 ICD10 Worksheet Patient Problems: Problems Problem Status Onset Chest pain Acute Abnormal EKG Acute Acute chest pain Acute Acute coronary syndrome Acute Transient global amnesia Acute chronic disease mgmt/ Transitional Care Acute
--- NOTE | 2018-03-05 17:50 | HOSPPROG ---
Hospitalist Progress Note Assessment/Plan: Assessment: 72 yo M p/w unstable angina 2/2 multivessel CAD Plan: # Unstable angina. 2/2 MVD w/ cath revealing in-stent LCx stenosis, LAD, and 1st diag lesions -Echo EF 64%, normal valves -CABG 03/06 -currently CP free -cont ASA -anginal equivalent is chest tightness w/ SOB/N/L bicep pain # HTN. Chronic, currently well controlled. # Pre-diabetes. No medications recommended, may need insulin SS jonah/post op Diet. NPO after MN PPx. High risk, SCDs, holding lovenox Code. Full Dispo. Upgraded to inpatient for unstable angina requiring CABG Subjective: no active chest pain Objective: Vital Signs Temp Pulse Resp BP Pulse Ox 36.4 C 62 15 114/75 92 03/05/18 16:00 03/05/18 16:00 03/05/18 16:00 03/05/18 16:00 03/05/18 16:00 03/04/18 03/05/18 03/06/18 05:59 05:59 05:59 Intake Total 670 Output Total 250 Balance 420 PT 13.9 SEC (12.0-15.0) 03/04/18 06:40 INR 1.05 (0.83-1.16) 03/04/18 06:40 - Physical Exam Constitutional: no apparent distress, appears nourished, not in pain, No uncomfortable Cardiovascular: regular rate and rhythym, no murmur, rub, or gallop, No edema Respiratory: no respiratory distress, no rales or rhonchi, clear to auscultation Gastrointestinal: normoactive bowel sounds, soft, non-tender abdomen, no palpable masses Neurologic: AAOx3 Psychiatric: interacting appropriately, not anxious, not encephalopathic, thought process linear ICD10 Worksheet Patient Problems: Problems Problem Status Onset Chest pain Acute Abnormal EKG Acute Acute chest pain Acute Acute coronary syndrome Acute Transient global amnesia Acute chronic disease mgmt/ Transitional Care Acute
[2018-03-05] MEDS ORDERED: CHLORHEXIDINE GLUC HIBICLENS 118 ML BTL TP SCH (21:00)
[2018-03-06] MEDS ORDERED: niCARdipine/NACL 200 ML IV ONE (06:00)
[2018-03-06] MEDS ORDERED: AMINOCAPROIC ACID 5 GM/20 ML VIAL IV ONE (06:00)
[2018-03-06] MEDS ORDERED: ceFAZolin 2 GM/DEXTROSE 100 ML IV ONE (06:00)
[2018-03-06] MEDS ORDERED: PHENYLEPHRINE HCL 50 MG in NS 250 ML IV ONE (06:00)
[2018-03-06] MEDS ORDERED: NOREPINEPHRINE BITARTRATE 16 MG in NS 250 ML IV ONE (06:00)
[2018-03-06] MEDS ORDERED: MUPIROCIN 2% 22 GM OINT NS ONE (06:00)
[2018-03-06] MEDS ORDERED: MANNITOL 25% 12.5 GM/50 ML VIAL IVP ONE (06:00)
[2018-03-06] MEDS ORDERED: INSULIN REGULAR HUMAN 100 UNIT in NS 100 ML IV ONE (06:00)
[2018-03-06] MEDS ORDERED: VERAPAMIL 5 MG, NITROGLYCERIN 2.5 MG, HEPARIN 500 UNIT, SODIUM BICARBONATE 0.2 MEQ in L... MISC ONE (06:00)
[2018-03-06] MEDS ORDERED: CITRATE DEXTROSE SOLN 500 ML BAG MISC ONE (06:00)
[2018-03-06] MEDS ORDERED: SODIUM BICARBONATE 20 MEQ, LIDOCAINE 1% 10 ML in NORMOSOL-R 1,000 ML MISC ONE (06:00)
[2018-03-06] MEDS ORDERED: PAPAVERINE HCL 60 MG in NS 100 ML IV ONE (06:00)
[2018-03-06] MEDS ORDERED: PROTAMINE SULFATE 50 MG/5 ML VIAL IVP ONE (06:15)
[2018-03-06] MEDS ORDERED: NA BICARBONATE 50 MEQ/50 ML VIAL ONE (06:15)
[2018-03-06] MEDS ORDERED: CALCIUM CHLORIDE 1 GM/10 ML INJ ONE ×3 (06:15→06:18)
[2018-03-06] MEDS ORDERED: MILRINONE/DEXTROSE/100 ML BAG IV ONE (06:15)
[2018-03-06] MEDS ORDERED: DOPamine/DEXTROSE 400 MG/250 ML BAG IV ONE (06:16)
[2018-03-06] MEDS ORDERED: HEPARIN 10,000 UNIT/10 ML MDV (1,000 UNIT/ML) ONE ×2 (06:16→06:18)
[2018-03-06] MEDS ORDERED: niCARdipine/NACL/200 ML BAG IV ONE (06:16)
[2018-03-06] MEDS ORDERED: AMIODARONE HCL 150 MG/3 ML VIAL ONE ×2 (06:17→06:18)
[2018-03-06] MEDS ORDERED: NITROGLYCERIN/D5W 50 MG/250 ML BOTTLE IV ONE (06:17)
[2018-03-06] MEDS ORDERED: ADENOSINE 6 MG/2 ML VIAL ONE (06:17)
[2018-03-06] MEDS ORDERED: ceFAZolin 1 GM VIAL ONE (06:17)
[2018-03-06] MEDS ORDERED: LIDOCAINE 2% 100 MG/5 ML SYR ONE (06:18)
[2018-03-06] MEDS ORDERED: ALBUMIN 5% 250 ML BOTTLE IV ONE (06:18)
[2018-03-06] MEDS ORDERED: CITRATE DEXTROSE SOLN 500 ML BAG ONE (06:18)
[2018-03-06] MEDS ORDERED: MAGNESIUM SULFATE 1 GM/2 ML VIAL ONE (06:19)
[2018-03-06] MEDS ORDERED: methylPREDNISolone SOD SUCC 1 GM/8 ML VIAL ONE (06:19)
--- NOTE | 2018-03-06 06:29 | PDHPUP ---
History & Physical Update H&P update statement: This history and physical update is based on an assessment of the patient which was completed after admission or registration (within 24 hours), but prior to the surgery/procedure. H&P update: H&P reviewed & patient examined, no change in patient's condition since H&P completed
[2018-03-06] MEDS ORDERED: VANCOMYCIN 1 GM VIAL ONE ×2 (06:47→08:29)
[2018-03-06] MEDS ORDERED: ceFAZolin 1 GM/5 ML SYR ONE (06:48)
[2018-03-06] MEDS ORDERED: MIDAZOLAM 2 MG/2 ML VIAL IVP ONE (07:04)
[2018-03-06] MEDS ORDERED: MIDAZOLAM 2 MG/2 ML VIAL ONE (07:04)
--- NOTE | 2018-03-06 07:04 | PDANEPAE ---
ANE History of Present Illness 72 yo for cabg ANE Past Medical History - Cardiovascular History Hx Hypertension: Yes Hx Arrhythmias: No Hx Chest Pain: Yes Hx Coronary Artery / Peripheral Vascular Disease: Yes Hx CHF / Valvular Disease: No Hx Palpitations: No - Pulmonary History Hx COPD: No Hx Asthma/Reactive Airway Disease: No Hx Recent Upper Respiratory Infection: No Hx Oxygen in Use at Home: No Hx Sleep Apnea: No Sleep Apnea Screening Result - Last Documented: Positive - Endocrine History Hx Diabetes: No - Chronic Pain History Chronic Pain: No ANE Review of Systems Review of Systems: - Exercise capacity METS (RN): 4 METS ANE Patient History - Allergies Allergies/Adverse Reactions: No Known Allergies Allergy (Verified 03/03/18 09:57) - Home Medications Home medications: home medication list seen and reviewed Home Medications: Aspirin EC [Aspirin EC 81 mg (*)] 81 mg PO DAILY 05/09/17 [Last Taken 03/03/18] Cholecalciferol Vit D3 [Vitamin D3 (*)] 1,000 units PO DAILY 05/09/17 [Last Taken 03/03/18] Herbals/Supplements -Info Only 1 ea PO DAILY 05/09/17 [Last Taken Unknown] Lisinopril [Zestril 10 mg (*)] 10 mg PO DAILY 05/09/17 [Last Taken 03/03/18] Multivitamins [Multivitamin (*)] 1 each PO Q3D 05/09/17 [Last Taken 05/08/17] Rosuvastatin Calcium [Crestor 40mg (*)] 40 mg PO DAILY 05/09/17 [Last Taken 06/20] - NPO status NPO Status: no food or drink >8 hours NPO Since - Liquids (Date): 03/05/18 NPO Since - Liquids (Time): 23:59 NPO Since - Solids (Date): 03/05/18 NPO Since - Solids (Time): 23:59 - Anes Hx Anes Hx: no prior problems - Smoking Hx Smoking Status: Never smoked ANE Labs/Vital Signs - Labs Result Diagrams: 03/04/18 06:40 03/05/18 03:39 - Vital Signs Blood Pressure: 113/70 Heart Rate: 62 Respiratory Rate: 16 O2 Sat (%): 93 Height: 5 ft 9 in Weight: 73.2 kg ANE Physical Exam - Airway Neck exam: FROM Mallampati Score: Class 2 Mouth exam: normal dental/mouth exam - Pulmonary Pulmonary: no respiratory distress - Cardiovascular Cardiovascular: regular rate and rhythym - ASA Status ASA Status: III ANE Anesthesia Plan Anesthesia Plan: general endotracheal anesthesia Lines/Monitors: central line, DOMI
[2018-03-06] MEDS ORDERED: LR 1,000 ML IV ONE (07:08)
[2018-03-06] MEDS ORDERED: REMIFENTANIL HCL 1 MG VIAL ONE (07:13)
[2018-03-06] MEDS ORDERED: PROPOFOL/EMULSION 500 MG/50 ML BOTTLE IV ONE (07:13)
[2018-03-06] MEDS ORDERED: fentaNYL 100 MCG/2 ML INJ ONE (07:13)
[2018-03-06] MEDS ORDERED: DEXMEDETOMIDINE HCL 400 MCG in NS 100 ML IV SCH (07:30)
--- NOTE | 2018-03-06 10:04 | PDMN ---
Medical Necessity Medical necessity: Change to IP, as of 03/05/18, per MD & MCG M-40; los >2 mn for ongoing management of unstable angina secondary to multivessel CAD; requiring CABG; hx HTN & pre-diabetes
[2018-03-06] MEDS ORDERED: ROCURONIUM 100 MG/10 ML VIAL ONE (10:41)
[2018-03-06] MEDS ORDERED: DEXAMETHASONE 4 MG/ML VIAL ONE (10:41)
[2018-03-06] MEDS ORDERED: PHENYLEPHRINE HCL 100 MCG/ML SYR ONE (10:41)
[2018-03-06] MEDS ORDERED: ePHEDrine SULFATE 25 MG/5 ML SYR ONE (10:41)
[2018-03-06] MEDS: ASPIRIN EC 81 MG TAB PO SCH (10:53)
[2018-03-06] MEDS: CHOLECALCIFEROL VIT D3 1,000 UNITS TAB PO SCH (10:54)
[2018-03-06] MEDS: ROSUVASTATIN CALCIUM 40 MG TAB PO SCH (10:54)
[2018-03-06] MEDS: MULTIVITAMINS 1 EACH TAB PO SCH (10:54)
[2018-03-06] MEDS: LISINOPRIL 10 MG TAB PO SCH (10:54)
[2018-03-06] MEDS ORDERED: SUGAMMADEX SODIUM 200 MG/2 ML VIAL IVP ONE (12:18)
--- NOTE | 2018-03-06 12:28 | POSTOPPROG ---
Post Op Note Date of Operation: 03/06/18 Surgeon: Mis Hill Telephone Cleaner: Shay Pichardo PA-C Anesthesia: GET(General Endotracheal) Pre-op Diagnosis: Coronary artery disease Post-op Diagnosis: Coronary artery disease Procedure: CABG x 3 (LEON-LAD, SVG-OM1, SVG-D1) Findings: LAD 1.75mm, D1 1.25mm, OM1 1.25mm Inf/Abcess present in the surg proc area at time of surgery?: No EBL: 100-500 Complications: None Drains: Other (CT x 3 (mediastinal, right and left pleural)) Specimen(s): None
[2018-03-06] MEDS ORDERED: CEPACOL LOZENGE PO PRN (12:38)
[2018-03-06] MEDS ORDERED: MAGNESIUM HYDROXIDE 30 ML UDCUP PO PRN (12:38)
[2018-03-06] MEDS ORDERED: LACTULOSE 20 GM/30 ML UDCUP PO PRN (12:38)
[2018-03-06] MEDS ORDERED: MEPERIDINE 25 MG/0.5 ML AMP IVP PRN (12:38)
[2018-03-06] MEDS ORDERED: ACETAMINOPHEN 650 MG SUPP PR PRN (12:38)
[2018-03-06] MEDS ORDERED: PANTOPRAZOLE SODIUM 40 MG VIAL IVP ONE (12:38)
[2018-03-06] MEDS ORDERED: POLYETHYLENE GLYCOL 3350 17 GM PKT PO PRN (12:38)
[2018-03-06] MEDS ORDERED: ACETAMINOPHEN 325 MG TAB PO PRN (12:38)
[2018-03-06] MEDS ORDERED: BISACODYL 10 MG SUPP PR PRN (12:38)
[2018-03-06] MEDS ORDERED: D50W 25 GM/50 ML SYR IVP PRN ×2 (12:38→22:03)
[2018-03-06] MEDS ORDERED: SODIUM CL NASAL 45 ML BTL EACHNARE PRN (12:38)
[2018-03-06] MEDS ORDERED: NOREPINEPHRINE BITARTRATE 16 MG in NS 250 ML IV PRN (12:45)
[2018-03-06] MEDS ORDERED: NS 1,000 ML IV SCH (12:45)
[2018-03-06] MEDS ORDERED: INSULIN REGULAR HUMAN 100 UNIT in NS 100 ML IV SCH (13:00)
[2018-03-06] MEDS ORDERED: NOREPINEPHRINE BITARTRATE 16 MG in NS 250 ML IV SCH (13:00)
[2018-03-06] MEDS ORDERED: niCARdipine/NACL 200 ML IV SCH (13:00)
[2018-03-06] MEDS: POTASSIUM Cl (KCl) 50 ML IV PRN ×3 (13:25→18:12)
[2018-03-06] MEDS: fentaNYL 100 MCG/2 ML INJ IVP PRN ×4 (13:34→23:06)
[2018-03-06] MEDS: ceFAZolin 2 GM/DEXTROSE 100 ML IV SCH ×2 (14:33→21:57)
--- NOTE | 2018-03-06 16:10 | CPEKG ---
Test Reason : OPEN Blood Pressure : / mmHG Vent. Rate : 055 BPM Atrial Rate : 055 BPM P-R Int : 200 ms QRS Dur : 100 ms QT Int : 499 ms P-R-T Axes : 041 065 083 degrees QTc Int : 478 ms Sinus rhythm Borderline prolonged QT interval Compared with 03/03/2018 QT now longer Confirmed by Nidia Tsai ([id number]) on 03/06/2018 4:09:18 PM Referred By: Confirmed By:Nidia Tsai
--- NOTE | 2018-03-06 16:35 | ASMTCMCOM ---
CM Note CM Note Notes: Awaiting therapy recommendations but patient will most likely d/c independent. CM available if d/c needs arise. Date Signed: 03/06/2018 04:34 PM Electronically Signed By:Trisha Amador LCSW
[2018-03-06] MEDS: ALBUMIN 5% 250 ML IV PRN ×2 (17:13→21:11)
[2018-03-06] MEDS: ONDANSETRON 4 MG/2 ML VIAL IVP PRN (17:28)
[2018-03-06] MEDS: HYDROmorphONE/DILAUDID 2 MG/ML INJ IVP PRN (18:04)
--- NOTE | 2018-03-06 18:56 | POSTANESTH ---
Post Anesthetic Evaluation Cardiovascular Status: Normal, Stable Respiratory Status: Tx Decrease in SpO2 Level of Consciousness/Mental Status: Can Participate in Eval Pain Control: Adequate, Prn Tx Ordered Nausea/Vomiting Control: Adequate, Prn Tx Ordered Complications Possibly Related to Anesthesia: None Noted
[2018-03-06] MEDS: METOCLOPRAMIDE 10 MG/2 ML VIAL IVP PRN (19:10)
[2018-03-06] MEDS: SENNOSIDES/DOCUSATE SODIUM TAB PO SCH (20:18)
[2018-03-06] MEDS: MUPIROCIN 2% 22 GM OINT NS SCH (20:47)
--- NOTE | 2018-03-06 22:07 | HOSPPROG ---
Hospitalist Progress Note Assessment/Plan: Assessment: 72 yo M p/w unstable angina 2/2 multivessel CAD, ongoing consult for hyperglycemia Plan: # Unstable angina. 2/2 MVD, POD#[address] Hill, CT surg primary service # HTN. Chronic, currently well controlled. # Pre-diabetes w/ hyperglycemia. D/w RN, currently on non-diabetic insulin gtt protocol post-CABG -cont until tomorrow AM per protocol -anticipate ongoing ISS needs w/ gluc range 133-175 today -will reassess needs after 24hrs of ISS Hospital medicine will continue to consult in his daily care for hyperglycemia mgmt. Subjective: minimal pain post-op Objective: Vital Signs Temp Pulse Resp BP Pulse Ox 36 C 76 18 116/57 L 94 03/06/18 22:00 03/06/18 22:00 03/06/18 22:00 03/06/18 22:00 03/06/18 22:00 03/05/18 03/06/18 03/07/18 05:59 05:59 05:59 Intake Total 970 765 Output Total 250 1880 Balance 720 -1115 PT 13.9 SEC (12.0-15.0) 03/04/18 06:40 INR 1.05 (0.83-1.16) 03/04/18 06:40 - Physical Exam Constitutional: no apparent distress, appears nourished, not in pain, No uncomfortable Cardiovascular: regular rate and rhythym, no murmur, rub, or gallop, edema (1+ bilat LE) Respiratory: no respiratory distress, no rales or rhonchi, reduced air movement (poor insp effort), other (audible chest tubes suction) Gastrointestinal: soft, non-tender abdomen, other (tubes in place), No normoactive bowel sounds (hypoactive bowel sounds), No guarding, No distension Psychiatric: not anxious, flat affect, other (lethargic but arousable to voice) , No agitated ICD10 Worksheet Patient Problems: Problems Problem Status Onset Coronary stent restenosis Acute S/P CABG x 3 Acute chronic disease mgmt/ Transitional Care Acute Transient global amnesia Acute Acute chest pain Acute Abnormal EKG Acute Chest pain Acute Acute coronary syndrome Acute
[2018-03-07] MEDS: HYDROmorphONE/DILAUDID 2 MG/ML INJ IVP PRN ×2 (01:32→08:25)
[2018-03-07] MEDS: fentaNYL 100 MCG/2 ML INJ IVP PRN ×2 (03:04→04:06)
[2018-03-07 03:06] LABS: PLATELET COUNT 188 10^3/uL (150-400)
[2018-03-07] MEDS: ceFAZolin 2 GM/DEXTROSE 100 ML IV SCH ×3 (05:52→21:43)
--- NOTE | 2018-03-07 06:47 | GOP ---
DATE OF OPERATION: 03/06/2018 SURGEON: Mis Hill MD QUAIL FARMER: Kavon Pichardo PA-C ANESTHESIA: General. PREOPERATIVE DIAGNOSIS: Severe multivessel coronary artery disease. POSTOPERATIVE DIAGNOSIS: Severe multivessel coronary artery disease. PROCEDURE PERFORMED: 1. Median sternotomy. 2. Endoscopic saphenous vein harvesting from the left lower extremity. 3. Epiaortic ultrasound. 4. Total cardiopulmonary bypass. 5. Coronary artery bypass grafting x3 (left internal mammary artery to left anterior descending, sap henous vein graft to obtuse marginal 1, saphenous vein graft to diagonal 1). 6. Placement of 2 temporary right ventricular epicardial pacing wires. FINDINGS: The LEON was noted to be small, but adequate in size with good flow. LAD 1.75 mm, diagona l 1 1.25 mm, OM1 1.25 mm. SPECIMENS: None. ESTIMATED BLOOD LOSS: 500 mL. 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 Shortly after that visit, he began experiencing some nonspecific symptoms in terms of lightheadedness and nausea as well as some chest heaviness. He felt this to be similar to his previous angina symptoms and therefore presented to [facility] for further evaluation. He ultimately underwent cardiac catheterization showin g severe multivessel coronary artery disease and therefore was referred for surgical revascularizatio n. The patient was seen preoperatively where the risks, benefits, and alternatives were detailed to him as well as his , and informed consent was obtained. DESCRIPTION OF PROCEDURE: The patient was brought into the operating room and placed on the [facility] room table in the supine position. An arterial line was placed by the anesthesiologist. General a nesthesia was induced, and the airway was secured with an endotracheal tube. Once appropriate anesth esia monitoring lines including a central line as well as a Bedoya catheter were placed, the patient's chest, abdomen and bilateral lower extremities were prepped and draped in the standard surgical fas ion utilizing ChloraPrep. A surgical time-out was performed and administration of prophylactic antib iotics assured prior to incision. A standard median sternotomy incision was made, and the sternum was divided using a pneumatic saw. T he left pleural space was entered, and the left internal mammary artery harvested from its origin to its bifurcation using electrocautery and a no-touch technique. Concurrently, the left greater saphen ous vein was harvested using an endoscopic harvesting technique. The vein was prepared with gentle d istention and ligation of side branches. The leg incisions were closed in 2 layers with absorbable s uture. The pericardium was opened, and the patient was systemically heparinized. The internal mammary arter y was then divided distally and the remnant was ligated using hemoclips. There was brisk flow throug h the mammary vessel, and the pedicle was controlled with a bulldog clamp. The left side of the jonah cardium was then opened to accommodate the mammary pedicle. After assuring a plaque-free cannulation and cross-clamp zone utilizing the epiaortic ultrasound, the ascending aorta was cannulated through 2 concentric pursestring sutures which were secured using a R umel tourniquet. A dual-stage venous cannula was then inserted into the right atrial appendage throu gh a pursestring suture. This too was secured using a Walker tourniquet. Cardiopulmonary bypass was then initiated, and the patient was passively cooled. A retrograde coronary sinus catheter was plac ed through a separate right atrial pursestring as well as an antegrade cardioplegia needle in the asc ending aorta. The aorta was then crossclamped. Antegrade and retrograde cold blood cardioplegia wer e then administered and continued intermittently throughout the procedure. Diastolic arrest was achi eved, and the aortic needle was converted to a vent. The OM1 target was then identified. An arteriotomy was made on the vessel and an end-to-side anastom osis fashioned with a reverse saphenous vein graft using 7-0 Prolene suture in running fashion. The diagonal 1 target was then identified. An arteriotomy was made on the vessel and an end-to-side anas tomosis fashioned with a reverse saphenous vein graft using 7-0 Prolene suture in running fashion. N ext, the LAD target was then identified and exposed. An arteriotomy was made on the coronary artery and an end-to-side anastomosis fashioned with the free end of the internal mammary artery using 8-0 P rolene suture in a running fashion. The bulldog clamp was then released from the JUANA and flow establ ished to the LAD. The patient was then rewarmed, and the aortic cross-clamp was removed. The retrograde catheter was r emoved as well and its pursestring suture tied down. As the heart began to beat in normal sinus rhyt hm, I began to notice some pulsatile bleeding at the distal aspect of the LAD anastomosis; this was n ot present after taking the bulldog clamp off the internal mammary artery prior to removing the cross -clamp. This did not seem amenable to suture repair on a beating heart nor did it appear that this w ould cease with protamine administration. Therefore, I elected to replace the aortic cross-clamp. A single dose of antegrade cold blood cardioplegia was administered to achieve diastolic arrest again. The aspect of the anastomosis was repaired with a ojiuky-ff-xkzcv 8-0 Prolene suture wit h very superficial bites. This appeared to resolve any bleeding issue. Once again, the aortic cross -clamp was removed. The heart once again began beating in a normal sinus rhythm, and the pulsatile b leeding was no longer present. A partial occluding clamp was then placed on the ascending aorta. Tw o aortotomies were then made using a knife and punch to perform the proximal anastomoses. Each proxi mal anastomosis was created in a side-to-end configuration using 5-0 Prolene suture in running fashio n to secure each vein graft to the aorta. The cross-clamp was then removed, bypass grafts de-aired, and flow established to the bypass coronary arteries. Two temporary ventricular pacing wires were th en placed on the right ventricle and brought to the skin surface at the left subcostal margin. The patient was then weaned from cardiopulmonary bypass without mechanical support. Systemic heparin ization was then reversed with protamine sulfate. The venous cannula was removed and its pursestring suture tied. The aortic cannula was then removed and its pursestring sutures were both tied. All s uture lines and surgical sites were made to be hemostatic. Three 36-Beninese chest tubes were placed, one in the mediastinum as well as in the right and left pleural spaces. The sternum was then closed using stainless steel wires in a simple and zspvfe-jp-bmbbu fashion. The fascia at the linea was the n closed using ehxkkk-ye-igxgf #1 Vicryl sutures. The presternal fascia, subcutaneous tissues, and s ubcuticular tissues were all closed in multiple layers with absorbable suture. Sterile dressings wer e applied, and the chest tubes were connected to suction drainage. The patient was extubated after the procedure and transferred to the ICU in stable condition after root ving tolerated the procedure well. AORTIC CROSS-CLAMP TIME: 78 minutes. CARDIOPULMONARY BYPASS TIME: 115 minutes. DRAINS: Chest tubes x3 (mediastinal, right and left pleural). COMPLICATIONS: None. /[id number]/MODL
[2018-03-07] MEDS: INSULIN REGULAR HUMAN 100 UNIT/ML UNIT SC SCH ×4 (07:32→23:14)
--- NOTE | 2018-03-07 07:34 | SOAPPROG ---
SOBEBETO Progress Note Assessment/Plan: Assessment: Plan: Objective: Vital Signs Temp Pulse Resp BP Pulse Ox 37.2 C 70 17 117/59 L 93 03/07/18 06:00 03/07/18 07:00 03/07/18 07:00 03/07/18 07:00 03/07/18 07:00 Laboratory Results 03/07/18 03:00 03/07/18 03:00 03/06/18 03/07/18 03/08/18 05:59 05:59 05:59 Intake Total 970 1902 Output Total 250 2360 Balance 720 -458 PT 13.9 SEC (12.0-15.0) 03/04/18 06:40 INR 1.05 (0.83-1.16) 03/04/18 06:40 ICD10 Worksheet Patient Problems: Problems Problem Status Onset Chest pain Acute Coronary stent restenosis Acute S/P CABG x 3 Acute Abnormal EKG Acute Acute chest pain Acute Acute coronary syndrome Acute Transient global amnesia Acute chronic disease [facility]/ Transitional Care Acute
[2018-03-07] MEDS ORDERED: traMADol 50 MG TAB PO PRN (07:40)
--- NOTE | 2018-03-07 07:46 | SOAPPROG ---
SOAP Progress Note Assessment/Plan: POD #1: CABGx3 (LEON-LAD, SVG-OM1, SVG-D1), EVH L thigh Severe 2-vessel CAD/in-stent restenosis with preserved LV function s/p CABGx3 - BB, ASA (325 mg in hospital, 81 mg on dc) amd statin for secondary prevention when appropriate - AL/FC out, CTs on suction (+air leak) - Likely PCU later today Acute blood loss anemia - Stable without the need for transfusions Pre-diabetes (A1c 6.1%) - Transition insulin gtt to ISS - Further management on outpatient basis as per PCP DVT prophylaxis - SCDs only Subjective: Feels nauseas. Denies SOB. Pain well-controlled. Objective: Vital Signs Temp Pulse Resp BP Pulse Ox 37.2 C 70 17 117/59 L 93 03/07/18 06:00 03/07/18 07:00 03/07/18 07:00 03/07/18 07:00 03/07/18 07:00 Laboratory Results 03/07/18 03:00 03/07/18 03:00 03/06/18 03/07/18 03/08/18 05:59 05:59 05:59 Intake Total 970 1902 Output Total 250 2360 Balance 720 -458 PT 13.9 SEC (12.0-15.0) 03/04/18 06:40 INR 1.05 (0.83-1.16) 03/04/18 06:40 Physical Exam - Physical Exam General Appearance: WD/WN, alert, no apparent distress EENT: No scleral icterus (R), No scleral icterus (L) Neck: normal inspection Respiratory: No respiratory distress Cardiac/Chest: regular rate, rhythm Abdomen: non-tender, soft, No distended Skin: normal color, warm/dry Extremities: No pedal edema Neuro/Psych: no motor/sensory deficits, alert, normal mood/affect, oriented x 3 ICD10 Worksheet Patient Problems: Problems Problem Status Onset Chest pain Acute Coronary stent restenosis Acute S/P CABG x 3 Acute Abnormal EKG Acute Acute chest pain Acute Acute coronary syndrome Acute Transient global amnesia Acute chronic disease mgmt/ Transitional Care Acute
[2018-03-07] MEDS: ONDANSETRON 4 MG/2 ML VIAL IVP PRN (08:25)
[2018-03-07] MEDS ORDERED: MAGNESIUM CITRATE 300 ML BOTTLE PO ONE (10:05)
[2018-03-07] MEDS ORDERED: FUROSEMIDE 20 MG/2 ML VIAL IVP ONE (10:46)
[2018-03-07] MEDS ORDERED: POTASSIUM CL 20 MEQ TAB PO ONE (10:46)
[2018-03-07] MEDS: ASPIRIN 325 MG TAB PO SCH (11:06)
[2018-03-07] MEDS: SENNOSIDES/DOCUSATE SODIUM TAB PO SCH ×2 (11:06→20:52)
[2018-03-07] MEDS: MUPIROCIN 2% 22 GM OINT NS SCH ×2 (11:06→20:53)
[2018-03-07] MEDS: PANTOPRAZOLE SODIUM 40 MG TAB PO SCH (11:06)
[2018-03-07] MEDS: METOPROLOL TARTRATE 25 MG TAB PO SCH ×2 (11:40→20:54)
[2018-03-07] MEDS: CHOLECALCIFEROL VIT D3 1,000 UNITS TAB PO SCH (11:44)
[2018-03-07] MEDS: ONDANSETRON DISINTEGRATING 4 MG TAB PO PRN ×2 (13:15→19:01)
--- NOTE | 2018-03-07 19:00 | HOSPPROG ---
Hospitalist Progress Note Assessment/Plan: Assessment: 72 yo M p/w unstable angina 2/2 multivessel CAD, ongoing consult for hyperglycemia Plan: # Unstable angina. 2/2 MVD, POD#[address] Hill, CT surg primary service # HTN. Chronic, currently well controlled # Atelectasis. 2/2 hypoventilation post-op, present on CXR (personally interpreted), encourage IS # Constipation. No BMs, significant stomach air on x-ray, recommend mag citrate + bowel regimen # Pre-diabetes w/ hyperglycemia. Adjusted from non-diabetic insulin gtt this AM to ISS -range 99-122 o/n -will reassess needs after 24hrs of ISS and make further recommendations tomorrow -counseled patient/family regarding stress-induced hyperglycemia -he will likely NOT require oral agent or insulin at discharge and can follow- up w/ PCP for ongoing pre-DM dietary counseling Hospital medicine will continue to consult in his daily care for hyperglycemia mgmt. Subjective: no BM, not passing flatus Objective: Vital Signs Temp Pulse Resp BP Pulse Ox 36.7 C 69 18 107/72 92 03/07/18 16:00 03/07/18 16:00 03/07/18 16:00 03/07/18 16:00 03/07/18 16:00 Laboratory Results 03/07/18 03:00 03/07/18 03:00 03/06/18 03/07/18 03/08/18 05:59 05:59 05:59 Intake Total 970 1902 Output Total 250 2360 845 Balance 720 -458 -845 PT 13.9 SEC (12.0-15.0) 03/04/18 06:40 INR 1.05 (0.83-1.16) 03/04/18 06:40 - Physical Exam Constitutional: no apparent distress, uncomfortable Cardiovascular: regular rate and rhythym, no murmur, rub, or gallop, edema (1+ bilat LE) Respiratory: reduced air movement (on insp 2/2 discomfort), other (audible chest tube sounds), No expiratory wheeze, No inspiratory crackles, No bronchial breath sounds Gastrointestinal: tenderness (mild mid-epigastric near tubes), distension (mild) , No normoactive bowel sounds (absent bowel sounds), No guarding, No rebound Psychiatric: not anxious, not encephalopathic, flat affect, other (responds appropriately to verbal stimuli), No agitated ICD10 Worksheet Patient Problems: Problems Problem Status Onset Coronary stent restenosis Acute S/P CABG x 3 Acute chronic disease mgmt/ Transitional Care Acute Transient global amnesia Acute Acute chest pain Acute Abnormal EKG Acute Chest pain Acute Acute coronary syndrome Acute
[2018-03-07] MEDS: HYDROCODONE/APAP 5/325 TAB PO PRN (20:52)
[2018-03-08] MEDS: HYDROCODONE/APAP 5/325 TAB PO PRN ×3 (01:28→20:32)
--- NOTE | 2018-03-08 07:42 | SOAPPROG ---
SOAP Progress Note Assessment/Plan: POD #2: CABGx3 (LEON-LAD, SVG-OM1, SVG-D1), EVH L thigh Severe 2-vessel CAD/in-stent restenosis with preserved LV function s/p CABGx3 - BB, ASA (325 mg in hospital, 81 mg on dc) and statin for secondary prevention when appropriate - AL/FC out, CTs on suction (+air leak) Acute blood loss anemia - Stable without the need for transfusions Pre-diabetes (A1c 6.1%) - ISS discontinued - Further management on outpatient basis as per PCP DVT prophylaxis - SCDs only Subjective: Feels well. Denies SOB/CP. Rested well over-night. Objective: Vital Signs Temp Pulse Resp BP Pulse Ox 36.9 C 75 19 110/63 93 03/08/18 07:28 03/08/18 07:28 03/08/18 07:28 03/08/18 07:28 03/08/18 07:28 Laboratory Results 03/07/18 03:00 03/07/18 03:00 03/07/18 03/08/18 03/09/18 05:59 05:59 05:59 Intake Total 1902 900 Output Total 2360 1270 Balance -458 -370 PT 13.9 SEC (12.0-15.0) 03/04/18 06:40 INR 1.05 (0.83-1.16) 03/04/18 06:40 Physical Exam - Physical Exam General Appearance: WD/WN, alert, no apparent distress EENT: No scleral icterus (R), No scleral icterus (L) Neck: normal inspection Respiratory: No respiratory distress Cardiac/Chest: regular rate, rhythm, friction rub Abdomen: non-tender, soft, No distended Skin: normal color, warm/dry Extremities: No pedal edema Neuro/Psych: no motor/sensory deficits, alert, normal mood/affect, oriented x 3 ICD10 Worksheet Patient Problems: Problems Problem Status Onset Chest pain Acute Coronary stent restenosis Acute S/P CABG x 3 Acute Abnormal EKG Acute Acute chest pain Acute Acute coronary syndrome Acute Transient global amnesia Acute chronic disease mgmt/ Transitional Care Acute
[2018-03-08] MEDS ORDERED: FUROSEMIDE 40 MG/4 ML VIAL IVP ONE (07:57)
[2018-03-08] MEDS ORDERED: POTASSIUM CL 20 MEQ TAB PO ONE (07:57)
[2018-03-08] MEDS: SENNOSIDES/DOCUSATE SODIUM TAB PO SCH ×2 (08:48→20:33)
[2018-03-08] MEDS: CHOLECALCIFEROL VIT D3 1,000 UNITS TAB PO SCH (08:48)
[2018-03-08] MEDS: ASPIRIN 325 MG TAB PO SCH (08:49)
[2018-03-08] MEDS: PANTOPRAZOLE SODIUM 40 MG TAB PO SCH (08:49)
[2018-03-08] MEDS: METOPROLOL TARTRATE 25 MG TAB PO SCH ×2 (08:49→20:33)
[2018-03-08] MEDS: INSULIN REGULAR HUMAN 100 UNIT/ML UNIT SC SCH (09:41)
[2018-03-08] MEDS: ONDANSETRON DISINTEGRATING 4 MG TAB PO PRN (12:24)
[2018-03-08] MEDS: METOCLOPRAMIDE 10 MG/2 ML VIAL IVP PRN (14:45)
[2018-03-08] MEDS: MUPIROCIN 2% 22 GM OINT NS SCH (14:49)
[2018-03-09] MEDS: HYDROCODONE/APAP 5/325 TAB PO PRN (06:48)
--- NOTE | 2018-03-09 07:16 | SOAPPROG ---
SOAP Progress Note Assessment/Plan: POD #3: CABGx3 (LEON-LAD, SVG-OM1, SVG-D1), EVH L thigh Severe 2-vessel CAD/in-stent restenosis with preserved LV function s/p CABGx3 - BB, ASA (325 mg in hospital, 81 mg on dc) and statin for secondary prevention when appropriate - AL/FC/PW out - CTs with resolved air leak, will be removed today Acute blood loss anemia - Stable without the need for transfusions Pre-diabetes (A1c 6.1%) - ISS discontinued - Further management on outpatient basis as per PCP DVT prophylaxis - SCDs only Disposition - Home Saturday without services Subjective: Feels well. Denies CP/SOB. Surgical pain well-controlled. Objective: Vital Signs Temp Pulse Resp BP Pulse Ox 36.6 C 90 18 138/65 H 92 03/09/18 04:00 03/09/18 04:00 03/09/18 04:00 03/09/18 04:00 03/09/18 04:00 Laboratory Results 03/09/18 06:00 03/09/18 06:00 03/08/18 03/09/18 03/10/18 05:59 05:59 05:59 Intake Total 900 1250 Output Total 1270 1450 Balance -370 -200 PT 13.9 SEC (12.0-15.0) 03/04/18 06:40 INR 1.05 (0.83-1.16) 03/04/18 06:40 Physical Exam - Physical Exam General Appearance: WD/WN, alert, no apparent distress EENT: No scleral icterus (R), No scleral icterus (L) Neck: normal inspection Respiratory: No respiratory distress Cardiac/Chest: regular rate, rhythm Abdomen: non-tender, soft, No distended Skin: normal color, warm/dry Extremities: No pedal edema Neuro/Psych: no motor/sensory deficits, alert, normal mood/affect, oriented x 3 ICD10 Worksheet Patient Problems: Problems Problem Status Onset Chest pain Acute Coronary stent restenosis Acute S/P CABG x 3 Acute Abnormal EKG Acute Acute chest pain Acute Acute coronary syndrome Acute Transient global amnesia Acute chronic disease mgmt/ Transitional Care Acute
[2018-03-09] MEDS ORDERED: POTASSIUM CL 20 MEQ TAB PO ONE ×2 (08:00→11:00)
[2018-03-09] MEDS ORDERED: FUROSEMIDE 40 MG/4 ML VIAL IVP ONE ×2 (08:00→11:00)
[2018-03-09] MEDS: ASPIRIN 325 MG TAB PO SCH (11:30)
[2018-03-09] MEDS: MULTIVITAMINS 1 EACH TAB PO SCH (11:30)
[2018-03-09] MEDS: CHOLECALCIFEROL VIT D3 1,000 UNITS TAB PO SCH (11:31)
[2018-03-09] MEDS: SENNOSIDES/DOCUSATE SODIUM TAB PO SCH ×2 (11:31→20:57)
[2018-03-09] MEDS: PANTOPRAZOLE SODIUM 40 MG TAB PO SCH (11:32)
[2018-03-09] MEDS: METOPROLOL TARTRATE 25 MG TAB PO SCH ×3 (11:44→23:53)
[2018-03-09] MEDS ORDERED: AMIODARONE HCL 150 MG/100 ML BAG (1.5 MG/ML) IV ONE (12:43)
[2018-03-09] MEDS ORDERED: AMIODARONE A.FIB-LOAD DOSE(ORDER 1/3) PREMIX IV ONE (13:00)
[2018-03-09] MEDS ORDERED: AMIODARONE A.FIB-6HR INFSN (ORDER 2/3) PREMIX IV ONE (13:00)
[2018-03-09] MEDS ORDERED: AMIODARONE A.FIB-18HR INFSN (ORDER 3/3) IV ONE (18:00)
[2018-03-09] MEDS: ONDANSETRON DISINTEGRATING 4 MG TAB PO PRN (19:46)
[2018-03-10] MEDS: ONDANSETRON DISINTEGRATING 4 MG TAB PO PRN (03:22)
[2018-03-10] MEDS: HYDROCODONE/APAP 5/325 TAB PO PRN ×2 (03:22→22:08)
--- NOTE | 2018-03-10 07:21 | SOAPPROG ---
SOAP Progress Note Assessment/Plan: Assessment: POD#4 CABGx3 (LEON-LAD, SVG-OM1, SVG-D1), EVH L thigh Severe 2-vessel CAD/in-stent restenosis with preserved LV function s/p CABGx3 - BB, ASA (325 mg in hospital, 81 mg on dc) and statin for secondary prevention - CTs and PW out Postoperative paroxysmal atrial fibrillation - Onset POD#3. Prompt orthodox of SR w amiodarone. - Adjunctive rate control w BB. Acute expected blood loss anemia - Stable without the need for transfusions - VTE prophylaxis with SCDs Pre-diabetes (A1c 6.1%) - No sig postop hyperglycemia. ISS discontinued - Further management on outpatient basis as per PCP Plan: Transition IV amio to 200 mg BID Cont metoprolol tartrate 25 mg BID Cont inc activity as tolerated Wean O2 Dispo - Home without services tomorrow 03/10/18 07:18 Subjective: Doing ok. A bit of nausea on amio but appetite intact. Improving mobility. Mobilizing phlegm. +BM. Adequate analgesia. Would like to go home tomorrow. Objective: Vital Signs Temp Pulse Resp BP Pulse Ox 36.9 C 71 16 118/69 94 03/10/18 03:27 03/10/18 03:27 03/10/18 03:27 03/10/18 03:27 03/10/18 03:27 Laboratory Results 03/09/18 06:00 03/09/18 06:00 03/09/18 03/10/18 03/11/18 05:59 05:59 05:59 Intake Total 1250 2270.4 Output Total 1450 725 Balance -200 1545.4 PT 13.9 SEC (12.0-15.0) 03/04/18 06:40 INR 1.05 (0.83-1.16) 03/04/18 06:40 Holding SR 60s-70s. Insufficient SBP to inc BB further. Borderline suppl O2 req. Below admit wt. - Pending Discharge Pending Discharge Within 24 Hours: Yes Pending Discharge Date: 03/11/18 Pending Discharge Time: 11:00 Physical Exam - Physical Exam General Appearance: alert, no apparent distress Respiratory: crackles (bases) Cardiac/Chest: regular rate, rhythm, other (Sternotomy, CT sites and LLE venotomy CDI) Abdomen: non-tender, soft Skin: warm/dry Extremities: other (no visible edema) ICD10 Worksheet Patient Problems: Problems Problem Status Onset Chest pain Acute Coronary stent restenosis Acute S/P CABG x 3 Acute Abnormal EKG Acute Acute chest pain Acute Acute coronary syndrome Acute Transient global amnesia Acute chronic disease mgmt/ Transitional Care Acute
[2018-03-10] MEDS ORDERED: SENNOSIDES/DOCUSATE SODIUM TAB PO PRN (08:00)
[2018-03-10] MEDS: PANTOPRAZOLE SODIUM 40 MG TAB PO SCH (08:19)
[2018-03-10] MEDS: CHOLECALCIFEROL VIT D3 1,000 UNITS TAB PO SCH (08:20)
[2018-03-10] MEDS: ASPIRIN 325 MG TAB PO SCH (08:20)
[2018-03-10] MEDS: METOPROLOL TARTRATE 25 MG TAB PO SCH ×2 (08:20→22:06)
[2018-03-10] MEDS: ROSUVASTATIN CALCIUM 40 MG TAB PO SCH (08:34)
--- NOTE | 2018-03-10 16:04 | ASMTCMCOM ---
CM Note CM Note Notes: Pt is pt of [facility]. PT and OT recommending Home health. CM awaiting info from [facility] office per their recomendation. No referrals sent at this time. Pt likely to discharge home independently unless [facility]'s office requests otherwise. D/C Plan: Home independently Date Signed: 03/10/2018 04:03 PM Electronically Signed By:Lamar Slade
[2018-03-10] MEDS: AMIODARONE HCL 200 MG TAB PO SCH (22:06)
[2018-03-11 07:46] VITALS: BP 114/77
--- NOTE | 2018-03-11 08:13 | SOAPPROG ---
SOAP Progress Note Assessment/Plan: Assessment: POD#5 CABGx3 (LEON-LAD, SVG-OM1, SVG-D1), EVH L thigh Severe 2-vessel CAD/in-stent restenosis with preserved LV function s/p CABGx3 - BB, ASA (325 mg in hospital, 81 mg on dc) and statin for secondary prevention - CTs and PW out Postoperative paroxysmal atrial fibrillation - Onset POD#3. Prompt quaker of SR w amiodarone. - Adjunctive rate control w BB. Acute expected blood loss anemia - Stable without the need for transfusions - VTE prophylaxis with SCDs Pre-diabetes (A1c 6.1%) - No sig postop hyperglycemia. ISS discontinued - Further management on outpatient basis as per PCP Plan: Ok for home. Instructions re diet, meds, activity, wound care and follow up reviewed in presence of . 03/11/18 08:12 Subjective: Feels well. Ready for home. No acute concerns. Objective: Vital Signs Temp Pulse Resp BP Pulse Ox 36.9 C 81 20 114/77 91 L 03/11/18 07:46 03/11/18 07:46 03/11/18 07:46 03/11/18 07:46 03/11/18 07:46 Laboratory Results 03/09/18 06:00 03/09/18 06:00 03/10/18 03/11/18 03/12/18 05:59 05:59 05:59 Intake Total 2270.4 1075 Output Total 725 1100 Balance 1545.4 -25 PT 13.9 SEC (12.0-15.0) 03/04/18 06:40 INR 1.05 (0.83-1.16) 03/04/18 06:40 Holding SR. BP controlled. Weaned to room air. Balanced I/Os. Physical Exam - Physical Exam General Appearance: alert, no apparent distress Respiratory: lungs clear (grossly) Cardiac/Chest: regular rate, rhythm, other (Sternum grossly stable. Sternotomy, CT sites and LLE venotomy CDI) Abdomen: non-tender, soft Skin: warm/dry Extremities: other (no visible edema) ICD10 Worksheet Patient Problems: Problems Problem Status Onset Chest pain Acute Coronary stent restenosis Acute Postoperative atrial fibrillation Acute S/P CABG x 3 Acute Abnormal EKG Acute Acute chest pain Acute Acute coronary syndrome Acute Transient global amnesia Acute chronic disease mgmt/ Transitional Care Acute
--- NOTE | 2018-03-11 08:28 | PDDCSUM ---
Discharge Summary Discharge Summary: DATE OF ADMISSION: 03/03/18 DATE OF DISCHARGE: 03/11/18 DISPOSITION: Home, self-care PRINCIPAL ADMISSION DIAGNOSIS: Unstable angina PRINCIPAL DISCHARGE DIAGNOSES: 1. 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 Progressive multivessel coronary artery disease 3. Carotid atherosclerosis 4. Prediabetes by hemoglobin A1c of 6.1% 5. Status post coronary artery bypass grafting x 3 6. Acute expected blood loss anemia 7. Postoperative paroxysmal atrial fibrillation HISTORY OF PRESENT ILLNESS: 72 yo male with multiple cardiac risk factors and several coronary stents admitted for evaluation of escalating anginal symptoms associated with a mildly elevated POC troponin. Cardiac catheterization notable for significant ISR of previously placed LCX stents as well as high grade disease involving the proximal LAD and principal diagonal branch. Referred for surgical revascularization. Preop imaging negative for valvular dysfunction, ventricular dysfunction or prohibitive neurologic risk. PERTINENT PAST MEDICAL HISTORY: CAD s/p Synergy D2 stent August 2016 & Synergy OM1/OM2 stents in Feb 2017 ( Plavix discontinued approx. 1 week prior to admission); HTN; dyslipidemia; insulin resistance MEDICATIONS ON ADMISSION: ASA 81 mg daily, Lisinopril 10 mg daily, MVI once daily, Rosuvastatin 40 mg daily, Vit D3 1,000 units daily, Herbal supplement daily ALLERGIES/SENSITIVITIES: NKDA CONSULTANTS: Cardiology ([facility]), CV surgery ([facility]) PROCEDURES/IMAGIN/2 ([facility]): Left heart catheterization with selective coronary angiography and left ventriculogram. Access via right femoral artery. Findings: Rt dominant coronary circulation, diffusely diseased LAD with 75% stenosis involving takeoff of D1, mild in-stent restenosis of D2, diffusely diseased LCX, 80% in- stent restenosis of OM1, 50% in-stent restenosis of OM2, 40-50% mid RCA stenosis. LVEF 65%. 03/04 ([facility]) Transthoracic echocardiogram: Nl BiV size and systolic fx. No RWMA. LVEF 64%. Nl sized atria. Trivial MR. Trivial TR. No /AI. 3.1 cm asc aorta. 03/04 Carotid ultrasound: mild calcific plaquing of bilateral carotid bulbs 03/06 ([facility]): Coronary artery bypass grafting x 3 (LEON-LAD, SV-D1, SV-OM1). Takedown left internal mammary artery. Endoscopic vein harvest left thigh. ABBREVIATED HOSPITAL COURSE BY ACTIVE PROBLEM LIST: 1. Sx CAD/ISR OM1 w preserved LV systolic fx - Revascularized with CABG. Stable early postop course. Euvolemic w adequate autodiuresis by time of discharge. Secondary prevention with ASA, BB, statin. Insufficient BP for ACEI. 2. Postoperative paroxysmal atrial fibrillation Episode of AF w RVR on POD#3. Prompt pentecostal of SR w amiodarone. Adjunctive rate control w BB, uptitrated as tolerated. Antithrombotic prophylaxis deferred (duration < 2 hrs). 3. Acute expected blood loss anemia Stable. No transfusions needed. H/H > 10/ 36 maintained. 4. Pre-diabetes (A1c 6.1%) - No sig postop hyperglycemia. No prolonged need for correctional insulin. Dietary counseling provided. Surveillance per PCP. DISCHARGE CLINICAL INFORMATION: Sternum grossly stable. Sternotomy and LLE venotomy CDI, sutured, +Dermabond. HR 60s. SBP 100s. SpO2 91% RA. Wt 1.5 kg below admission at 75.4 kilos. Hgb 12.8, HCT 38.3, Plt 146, Na 135, K 4.2, Cr 0.7 DISCHARGE MEDICATIONS: As on admission with the following adjustments: 1. Hold Lisinopril NEW prescriptions: 1. Metoprolol tartrate 25 mg BID 2. Amiodarone 200 mg BID thru 03/18, then 200 mg daily x 2 weeks, then 100 mg daily x 1 week or out of pills 3. Tramadol 50 mg, one half tab to two tabs, q6h prn incisional discomfort not relieved by tylenol FOLLOW UP APPOINTMENTS: 1. CV surgery: with Dr Todd at [facility] on 03/18 at 10:00 am. 2. Cardiology: with Caroline Cam PA-C (or Dr Ruby) at [facility] within 4-6 weeks. Appointment to be established during surgical visit. FOLLOW UP TESTING: CXR prior to surgical appointment.
[2018-03-11] MEDS: CHOLECALCIFEROL VIT D3 1,000 UNITS TAB PO SCH (08:33)
[2018-03-11] MEDS: PANTOPRAZOLE SODIUM 40 MG TAB PO SCH (08:34)
[2018-03-11] MEDS: ROSUVASTATIN CALCIUM 40 MG TAB PO SCH (08:34)
[2018-03-11] MEDS: AMIODARONE HCL 200 MG TAB PO SCH (08:34)
[2018-03-11] MEDS: METOPROLOL TARTRATE 25 MG TAB PO SCH (08:34)
--- NOTE | 2018-03-11 10:18 | ASMTLACE ---
LACE Length of stay for Answers: 7-13 days current admission Acuity / Level of Answers: Yes Care: Did the patient have an inpatient admission? Comorbidities - select Answers: Coronary Artery Disease all that apply Other Notes: HTN; HLD # of Emergency department Answers: 1-2 visits in the last 6 months Score: 12 Date Signed: 03/11/2018 10:17 AM Electronically Signed By:Lamar Slade
--- NOTE | 2018-03-11 10:28 | ASDISCHSUM ---
Discharge Information Plan Status:Home with No Needs Medically Cleared to Leave:03/11/2018 Discharge Date:03/11/2018 CM D/C Disposition:Home, Routine, Self-Care ADT D/C Disposition:Home, Routine, Self-Care Projected Discharge Date:03/11/2018 Transportation at D/C:Family Discharge Delay Reason: Follow-Up Date:03/11/2018 Discharge Slot: Final Diagnosis:CAD stent placement Placement Information Patient Contact Information Contact Name:EMANUEL Relationship: Address:[address] Home Phone: City:[place] Alternate Phone: [facility]/Zip Code:[place] [address] Email: Financial Information Financial Class:Medicare Primary Plan Desc:MEDICARE INPATIENT Primary Plan Number:[id number] Secondary Plan Desc: Secondary Plan Number: Assessment Information LACE LACE Length of stay for Answers: 7-13 days current admission Acuity / Level of Answers: Yes Care: Did the patient have an inpatient admission? Comorbidities - select Answers: Coronary Artery Disease all that apply Other Notes: HTN; HLD # of Emergency department Answers: 1-2 visits in the last 6 months Score: 12 Date Signed: 03/11/2018 10:17 AM Electronically Signed By:Lamar Slade [facility] CM Progress Note CM Note CM Note Notes: 03/04/2018 Case Management Note Met w/pt and Sunni [phone]. Pt has daughter and son in law in [place] for support. Pt recently d/c from [facility] on 05/10/[address] Cuca Burk is PCP. There are no case management d/c needs identified d/t pt age, marital status, and independence in ADL's prior to admission. There are no therapy evals ordered at this time. Case Management d/c poc: anticipating independent with follow up as directed. Case Management available if needs change. Date Signed: 03/04/2018 02:40 PM Electronically Signed By:Rea Lazo RN [facility] CM Progress Note CM Note CM Note Notes: Awaiting therapy recommendations but patient will most likely d/c independent. CM available if d/c needs arise. Date Signed: 03/06/2018 04:34 PM Electronically Signed By:Trisha Amador LCSW [facility] CM Progress Note CM Note CM Note Notes: Pt is pt of [facility]. PT and OT recommending Home health. CM awaiting info from [facility] office per their recomendation. No referrals sent at this time. Pt likely to discharge home independently unless [facility] office requests otherwise. D/C Plan: Home independently Date Signed: 03/10/2018 04:03 PM Electronically Signed By:Lamar Slade Case Management Discharge Plan Note Case Management Discharge Discharge Order Complete? Answers: Yes Transportation Arranged Answers: Family/Friends Family Notified Answers: Yes Notes: in the room Discharge Comments Notes: Chart reviewed by CM and CM spoke with RN. OT now recommending home independently. Pt refused PT yesterday. Pt's in the room. Pt, and RN comfortable with pt discharging home independently. Cardiology recommending this as well. No CM needs noted at this time. CM available should needs change. Date Signed: 03/11/2018 10:27 AM Electronically Signed By:Lamar Slade Intervention Information Intervention Type:*MANZANO-Signed Date of Service:03/03/2018 02:13 PM Patient Type:Observation Staff Member:Zulma Rod Hours: Discipline: Severity: Comment: Intervention Type:*IM-Signed Date of Service:03/11/2018 09:49 AM Patient Type:Inpatient Staff Member:Zulma Rod Hours: Discipline: Severity: Comment:
[2018-03-11] MEDS: HYDROCODONE/APAP 5/325 TAB PO PRN (12:16)
== END 2018-03-11 13:00 | disposition home or self-care (01) | DRG 234 ==
LOC: F2W 12:14 → OBSVTOIN 03-05 09:44 → F2N 03-06 08:25 → F2W 03-07 12:40
PROVIDERS: ADMIT Surgery; ATTEND Surgery
PROC: B2151ZZ Fluoroscopy of Left Heart using Low Osmolar Contrast (ICD-10-PCS; 2018-03-04)
PROC: B2111ZZ Fluoroscopy of Multiple Coronary Arteries using Low Osmolar Contrast (ICD-10-PCS; 2018-03-04)
PROC: 4A023N7 Measurement of Cardiac Sampling and Pressure, Left Heart, Percutaneous Approach (ICD-10-PCS; 2018-03-04)
PROC: 021109W Bypass Coronary Artery, Two Arteries from Aorta with Autologous Venous Tissue, Open Approach (ICD-10-PCS; principal; 2018-03-06 07:15)
PROC: 06BQ4ZZ Excision of Left Saphenous Vein, Percutaneous Endoscopic Approach (ICD-10-PCS; principal; 2018-03-06 07:15)
PROC: 02100Z9 Bypass Coronary Artery, One Artery from Left Internal Mammary, Open Approach (ICD-10-PCS; principal; 2018-03-06 07:15)
PROC: 5A1221Z Performance of Cardiac Output, Continuous (ICD-10-PCS; principal; 2018-03-06 07:15)
DX: I25.110 Atherosclerotic heart disease of native coronary artery with unstable angina pectoris (principal); T82.855A Stenosis of coronary artery stent, initial encounter; D62 Acute posthemorrhagic anemia; I48.0 Paroxysmal atrial fibrillation; J98.11 Atelectasis; R73.03 Prediabetes; I10 Essential (primary) hypertension; E78.5 Hyperlipidemia, unspecified; Z95.5 Presence of coronary angioplasty implant and graft
CPT/HCPCS: 82435-PO; 82565-PO; 82947-PO; 83605-PO; 84132-PO; 84295-PO; 84484-PO; 84520-PO; 85014-PO; 97116-GP; 97161-GP; 97166-GO; 97535-GO; C1760; G0378; G8978-GP-CI; G8978-GP-CK; G8979-GP-CI; G8980-GP-CI; G8987-GO-CK; G8988-GO-CI; J0153; J0282; J0690; J1100; J1170; J1265; J1644; J1815; J1940; J2001; J2150; J2250; J2260; J2270; J2370; J2405; J2440; J2704; J2720; J2765; J2930; J3010; J3370; J3475; J3480; J7060; P9041; Q9967

== ENCOUNTER → 2018-03-18 | Outpatient (CLI) | payer OTHER | LOC: FIMAGING 09:42 | PROVIDERS: ATTEND Thoracic Surgery (Cardiothoracic Vascular Surgery) | DX: Z48.812 Encounter for surgical aftercare following surgery on the circulatory system (principal); J90 Pleural effusion, not elsewhere classified; J98.11 Atelectasis; I25.10 Atherosclerotic heart disease of native coronary artery without angina pectoris; I10 Essential (primary) hypertension ==